=== PATIENT | male | born 1985 | race Caucasian/White ===

== ENCOUNTER 2018-02-02 19:36 | Emergency (ER) | payer OTHER ==
[2018-02-02] MEDS ORDERED: LORazepam 2 MG/ML INJ IV STA (21:16)
[2018-02-02] MEDS ORDERED: FOLIC ACID 1 MG TAB PO STA (21:16)
[2018-02-02] MEDS ORDERED: SODIUM CHLORIDE 0.9% 1,000 ML IV STA (21:16)
[2018-02-02] MEDS ORDERED: THIAMINE 100 MG/ML 2 ML VIAL IM STA (21:16)
[2018-02-02] MEDS ORDERED: ONDANSETRON 4 MG/2 ML VIAL IVP STA (21:19)
--- NOTE | 2018-02-02 21:26 | ED ---
Alcohol HPI - General Chief Complaint: Alcohol Stated Complaint: Withdrawal Time Seen by Provider: 02/02/18 21:11 Source: patient Mode of arrival: ambulatory Limitations: no limitations - History of Present Illness Initial Comments: This patient is a 32-year-old man who presents to be evaluated for what he believes his alcohol withdrawal. The patient states that for probably a year or more he has been drinking about a fifth of alcohol per day. He states over the past few days she has been trying to stop, drinking less each day. The patient states that his last drink was in the morning. He now is having continuous nausea and vomiting. He also states that he feels very anxious and shaky. Patient denies history of previous DVTs or withdrawal seizures. MD Complaint: alcohol withdrawal Time Since Last Drink: 10 -: hour(s) Recent Trauma: No Associated Symptoms: nausea, vomiting, tremors Treatments Prior to Arrival: none Chronic Alcohol Use: Yes - Related Data Previous Rx's Medication Instructions Recorded chlordiazePOXIDE HCl [Librium] 50 mg PO TID #6 capsule 02/02/18 Ondansetron Odt [Zofran ODT] 4 mg PO Q8HR PRN #10 tab 02/03/18 Allergies Allergy/AdvReac Type Severity Reaction Status Date / Time No Known Allergies Allergy Verified 02/02/18 20:38 Review of Systems ROS Statement: Those systems with pertinent positive or pertinent negative responses have been documented in the HPI. ROS Other: All systems not noted in ROS Statement are negative. Constitutional: Denies: fever, chills, weakness Eyes: Denies: vision change Respiratory: Denies: cough, dyspnea Cardiovascular: Denies: chest pain, syncope Gastrointestinal: Reports: nausea, vomiting. Denies: abdominal pain, diarrhea, hematemesis, melena, hematochezia Genitourinary: Denies: dysuria, hematuria Musculoskeletal: Denies: back pain Skin: Denies: rash Neurological: Denies: headache, weakness, numbness Psychiatric: Reports: anxiety. Denies: suicidal thoughts Past Medical History Past Medical History: Hypertension Additional Past Medical History / Comment(s): alcohol abuse History of Any Multi-Drug Resistant Organisms: None Reported Past Surgical History: Ear Surgery Past Psychological History: No Psychological Hx Reported Smoking Status: Never smoker Past Alcohol Use History: Daily, Heavy Past Drug Use History: None Reported General Exam Limitations: no limitations General appearance: alert, obese, other (The patient is having a mild tremor and is having intermittent retching throughout the exam. I did check a blood pressure at my exam and it is 170/110.) Head exam: Present: atraumatic, normocephalic Eye exam: Present: normal appearance. Absent: scleral icterus, conjunctival injection ENT exam: Present: mucous membranes dry Respiratory exam: Present: normal lung sounds bilaterally. Absent: respiratory distress, wheezes, rales, rhonchi, stridor Cardiovascular Exam: Present: normal rhythm, tachycardia (Rate 128 at my exam), normal heart sounds. Absent: systolic murmur, diastolic murmur, rubs, gallop GI/Abdominal exam: Present: soft. Absent: distended, tenderness, guarding, rebound, rigid, mass, hernia Extremities exam: Present: normal inspection, normal capillary refill. Absent: pedal edema, calf tenderness Back exam: Present: normal inspection Neurological exam: Present: alert, other (Mild tremor) Psychiatric exam: Present: anxious Skin exam: Present: warm, dry, intact, normal color. Absent: rash Course Vital Signs 02/02/18 02/02/18 02/03/18 20:26 23:11 00:03 Temperature 98.4 F Pulse Rate 139 H 111 H 111 H Respiratory 18 20 20 Rate Blood Pressure 163/93 166/82 180/92 O2 Sat by Pulse 94 L 99 97 Oximetry Medical Decision Making - Lab Data Result diagrams: 02/02/18 21:34 02/02/18 21:34 Lab Results 02/02/18 02/02/18 Range/Units 21:34 21:34 WBC 5.2 (3.8-10.6) k/uL RBC 5.56 (4.30-5.90) m/uL Hgb 17.7 H (13.0-17.5) gm/dL Hct 50.9 (39.0-53.0) % MCV 91.5 (80.0-100.0) fL MCH 31.8 (25.0-35.0) pg MCHC 34.8 (31.0-37.0) g/dL RDW 14.0 (11.5-15.5) % Plt Count 186 (150-450) k/uL Neutrophils % 74 % Lymphocytes % 15 % Monocytes % 8 % Eosinophils % 0 % Basophils % 1 % Neutrophils # 3.9 (1.3-7.7) k/uL Lymphocytes # 0.8 L (1.0-4.8) k/uL Monocytes # 0.4 (0-1.0) k/uL Eosinophils # 0.0 (0-0.7) k/uL Basophils # 0.0 (0-0.2) k/uL Sodium 142 (137-145) mmol/L Potassium 4.0 (3.5-5.1) mmol/L Chloride 100 (98-107) mmol/L Carbon Dioxide 17 L (22-30) mmol/L Anion Gap 25 mmol/L BUN 6 L (9-20) mg/dL Creatinine 0.70 (0.66-1.25) mg/dL Est GFR (CKD-EPI)AfAm >90 (>60 ml/min/1.73 sqM) Est GFR (CKD-EPI)NonAf >90 (>60 ml/min/1.73 sqM) Glucose 218 H (74-99) mg/dL Calcium 9.6 (8.4-10.2) mg/dL Magnesium 1.7 (1.6-2.3) mg/dL Total Bilirubin 1.9 H (0.2-1.3) mg/dL AST 67 H (17-59) U/L ALT 62 (21-72) U/L Alkaline Phosphatase 109 (38-126) U/L Total Protein 9.0 H (6.3-8.2) g/dL Albumin 5.3 H (3.5-5.0) g/dL Serum Alcohol 139 mg/dL Disposition Clinical Impression: Alcohol withdrawal syndrome Disposition: HOME SELF-CARE Condition: Good Instructions: Alcohol Withdrawal (ED) Prescriptions: chlordiazePOXIDE HCl [Librium] 50 mg PO TID #6 capsule Ondansetron Odt [Zofran ODT] 4 mg PO Q8HR PRN #10 tab PRN Reason: Nausea Is patient prescribed a controlled substance at d/c from ED?: Yes Referrals: None,Stated [Primary Care Provider] - 1-2 days
[2018-02-02 21:42] LABS: Basophils % (A) 1 %; Eosinophils % (A) 0 %; HCT 50.9 % (39.0-53.0); HGB 17.7 gm/dL (13.0-17.5); Lymphocytes # (A) 0.8 k/uL (1.0-4.8); Lymphocytes % (A) 15 %; MCH 31.8 pg (25.0-35.0); MCHC 34.8 g/dL (31.0-37.0); MCV 91.5 fL (80.0-100.0); Monocytes # (A) 0.4 k/uL (0-1.0); Monocytes % (A) 8 %; Neutrophils # (A) 3.9 k/uL (1.3-7.7); Neutrophils % (A) 74 %; Platelet Count 186 k/uL (150-450); RBC 5.56 m/uL (4.30-5.90); WBC 5.2 k/uL (3.8-10.6)
[2018-02-02 22:06] LABS: ALT 62 U/L (21-72); AST 67 U/L (17-59); Albumin 5.3 g/dL (3.5-5.0); Alkaline Phosphatase 109 U/L (38-126); Anion Gap 25 mmol/L; Blood Urea Nitrogen 6 mg/dL (9-20); Calcium 9.6 mg/dL (8.4-10.2); Carbon Dioxide 17 mmol/L (22-30); Chloride 100 mmol/L (98-107); Glucose 218 mg/dL (74-99); Magnesium 1.7 mg/dL (1.6-2.3); Sodium 142 mmol/L (137-145); Total Bilirubin 1.9 mg/dL (0.2-1.3)
[2018-02-02 22:08] LABS: Alcohol 139 mg/dL
[2018-02-03 00:04] VITALS: BP 180/92; PULSE 111; RESP 20
[2018-02-03 00:22] VITALS: TEMP 98.1
== END 2018-02-03 00:22 | disposition home or self-care (01) ==
LOC: EC 19:36
DX: F10.239 Alcohol dependence with withdrawal, unspecified (principal); R00.0 Tachycardia, unspecified; F41.9 Anxiety disorder, unspecified; E66.9 Obesity, unspecified; Z68.36 Body mass index [BMI] 36.0-36.9, adult
CPT/HCPCS: 36415; 80053; 83735; 85025; 80320; 99284; 96374; 96375; 96372; 96361 ×3; J2060; J3411; J2405

== ENCOUNTER 2019-06-10 06:56 | Emergency (ER) | payer OTHER ==
[2019-06-10] MEDS ORDERED: SODIUM CHLORIDE 0.9% 2,000 ML IV STA (07:13)
[2019-06-10] MEDS ORDERED: ONDANSETRON 4 MG/2 ML VIAL IVP STA (07:13)
[2019-06-10] MEDS ORDERED: FAMOTIDINE 20 MG/2 ML VIAL IV STA (07:13)
[2019-06-10] MEDS ORDERED: LORazepam 2 MG/ML INJ IV STA (07:30)
--- NOTE | 2019-06-10 07:33 | ED ---
General Adult HPI - General Chief complaint: Nausea/Vomiting/Diarrhea Stated complaint: Withdrawal Time Seen by Provider: 06/10/19 07:11 Source: patient, family, RN notes reviewed Mode of arrival: ambulatory Limitations: no limitations - History of Present Illness Initial comments: Patient is a pleasant 33-year-old male presenting to the emergency department with concerns of alcohol withdrawal. Patient stopped drinking around 12 hours ago. Patient feels a little bit shaky. Patient feels nauseated and has vomited a couple times. No weakness or confusion. No abdominal pain. No diarrhea. Patient has decided this time stopped drinking. - Related Data Home Medications Medication Instructions Recorded Confirmed Latanoprost/Pf [Latanoprost 0.005% 1 drop BOTH EYES HS 06/10/19 06/10/19 Eye Drop] Allergies Allergy/AdvReac Type Severity Reaction Status Date / Time No Known Allergies Allergy Verified 06/10/19 08:24 Review of Systems ROS Statement: Those systems with pertinent positive or pertinent negative responses have been documented in the HPI. ROS Other: All systems not noted in ROS Statement are negative. Constitutional: Denies: fever Eyes: Denies: eye pain ENT: Denies: ear pain Respiratory: Denies: cough Cardiovascular: Denies: chest pain Endocrine: Denies: fatigue Gastrointestinal: Reports: nausea. Denies: abdominal pain Genitourinary: Denies: dysuria Musculoskeletal: Denies: back pain Skin: Denies: rash Neurological: Denies: weakness Past Medical History Past Medical History: Hypertension Additional Past Medical History / Comment(s): alcohol abuse History of Any Multi-Drug Resistant Organisms: None Reported Past Surgical History: Ear Surgery Past Psychological History: No Psychological Hx Reported Smoking Status: Never smoker Past Alcohol Use History: Daily, Heavy Past Drug Use History: None Reported General Exam Limitations: no limitations General appearance: alert, in no apparent distress Head exam: Present: normocephalic Eye exam: Present: normal appearance, PERRL ENT exam: Present: normal oropharynx Neck exam: Present: normal inspection Respiratory exam: Present: normal lung sounds bilaterally Cardiovascular Exam: Present: normal rhythm, tachycardia GI/Abdominal exam: Present: soft. Absent: distended, tenderness Extremities exam: Present: normal inspection Neurological exam: Present: alert, oriented X3, CN II-XII intact. Absent: motor sensory deficit Psychiatric exam: Present: normal affect, normal mood Skin exam: Present: normal color Course Vital Signs 12/26/19 12/26/19 12/26/19 06:57 07:26 07:39 Temperature 97.3 F L Pulse Rate 156 H 130 H 105 H Respiratory 20 20 18 Rate Blood Pressure 180/99 167/115 O2 Sat by Pulse 97 96 Oximetry 06/10/19 08:05 Temperature Pulse Rate 93 Respiratory 18 Rate Blood Pressure 166/102 O2 Sat by Pulse 99 Oximetry EKG Findings - EKG Comments: EKG Findings:: Sinus tachycardia 135. [place] 140. QRS 86. QT 296. QTc 444. Right axis. Normal QRS. No acute ST change. Medical Decision Making - Medical Decision Making Patient reevaluated and significantly improved. Heart rate 99. Patient updated on results and need for follow-up. Patient given follow-up information for alcohol abuse. Patient instructed to cut Ativan pill in half. - Lab Data Result diagrams: 06/10/19 07:15 06/10/19 07:15 Lab Results 06/10/19 06/10/19 06/10/19 Range/Units 07:15 07:15 07:15 WBC 7.7 (3.8-10.6) k/uL RBC 5.73 (4.30-5.90) m/uL Hgb 17.5 (13.0-17.5) gm/dL Hct 49.7 (39.0-53.0) % MCV 86.7 (80.0-100.0) fL MCH 30.5 (25.0-35.0) pg MCHC 35.2 (31.0-37.0) g/dL RDW 14.0 (11.5-15.5) % Plt Count 221 (150-450) k/uL Neutrophils % 50 % Lymphocytes % 36 % Monocytes % 8 % Eosinophils % 3 % Basophils % 1 % Neutrophils # 3.9 (1.3-7.7) k/uL Lymphocytes # 2.8 (1.0-4.8) k/uL Monocytes # 0.6 (0-1.0) k/uL Eosinophils # 0.3 (0-0.7) k/uL Basophils # 0.1 (0-0.2) k/uL Sodium 141 (137-145) mmol/L Potassium 3.6 (3.5-5.1) mmol/L Chloride 98 (98-107) mmol/L Carbon Dioxide 20 L (22-30) mmol/L Anion Gap 23 mmol/L BUN 8 L (9-20) mg/dL Creatinine 0.82 (0.66-1.25) mg/dL Est GFR (CKD-EPI)AfAm >90 (>60 ml/min/1.73 sqM) Est GFR (CKD-EPI)NonAf >90 (>60 ml/min/1.73 sqM) Glucose 163 H (74-99) mg/dL Calcium 9.3 (8.4-10.2) mg/dL Total Bilirubin 1.4 H (0.2-1.3) mg/dL AST 107 H (17-59) U/L ALT 84 H (4-49) U/L Alkaline Phosphatase 155 H (38-126) U/L Total Protein 9.0 H (6.3-8.2) g/dL Albumin 5.1 H (3.5-5.0) g/dL Amylase 58 (30-110) U/L Lipase 154 (23-300) U/L Urine Color Yellow Urine Appearance Cloudy (Clear) Urine pH 5.5 (5.0-8.0) Ur Specific [place] 1.026 (1.001-1.035) Urine Protein 2+ H (Negative) Urine Glucose (UA) 2+ H (Negative) Urine Ketones 3+ H (Negative) Urine Blood Trace H (Negative) Urine Nitrite Negative (Negative) Urine Bilirubin Negative (Negative) Urine Urobilinogen 2.0 (<2.0) mg/dL Ur Leukocyte Esterase Negative (Negative) Urine RBC <1 (0-5) /hpf Urine WBC 2 (0-5) /hpf Ur Squamous Epith Cells 1 (0-4) /hpf Hyaline Casts 62 H (0-2) /lpf Urine Mucus Many H (None) /hpf Serum Alcohol 175 mg/dL Disposition Clinical Impression: Alcohol abuse, Alcohol withdrawal Disposition: HOME SELF-CARE Condition: Stable Instructions (If sedation given, give patient instructions): Abuse of Alcohol (ED), Alcohol Withdrawal (ED) Additional Instructions: Please follow-up with primary care physician in the next day or 2 for recheck. Return for confusion, hallucinations, seizures, worsening symptoms or any other concerns. Please also follow-up with alcohol abuse treatment, list provided Is patient prescribed a controlled substance at d/c from ED?: No Referrals: Matthew Trujillo MD [STAFF PHYSICIAN] - 1-2 days Donnie Scanlon III, MD [STAFF PHYSICIAN] - 1-2 days Time of Disposition: 08:41
[2019-06-10 07:40] VITALS: RESP 18
[2019-06-10 07:41] LABS: Appearance,Urine Cloudy (Clear); Bilirubin,Urine Negative (Negative); Blood,Urine Trace (Negative); Color,Urine Yellow; Glucose,Urine (UA) 2+ (Negative); Hyaline Casts,Urine 62 /lpf (0-2); Leukocyte Esterase,Urine Negative (Negative); Mucus,Urine Many /hpf; Nitrite,Urine Negative (Negative); PH, Urine 5.5 (5.0-8.0); Protein,Urine 2+ (Negative); RBC,Urine <1 /hpf (0-5); Specific Gravity,Urine 1.026 (1.001-1.035); Squamous Epithelial Cell,Urine 1 /hpf (0-4); WBC,Urine 2 /hpf (0-5)
[2019-06-10 07:43] LABS: ALT 84 U/L (4-49); AST 107 U/L (17-59); African American GFR (CKD) >90 (>60 ml/min/1.73 sqM); Albumin 5.1 g/dL (3.5-5.0); Alkaline Phosphatase 155 U/L (38-126); Amylase 58 U/L (30-110); Anion Gap 23 mmol/L; Blood Urea Nitrogen 8 mg/dL (9-20); Calcium 9.3 mg/dL (8.4-10.2); Carbon Dioxide 20 mmol/L (22-30); Chloride 98 mmol/L (98-107); Glucose 163 mg/dL (74-99); Non-African American GFR(CKD) >90 (>60 ml/min/1.73 sqM); Potassium 3.6 mmol/L (3.5-5.1); Sodium 141 mmol/L (137-145); Total Bilirubin 1.4 mg/dL (0.2-1.3)
[2019-06-10 07:44] LABS: Basophils # (A) 0.1 k/uL (0-0.2); Basophils % (A) 1 %; Eosinophils # (A) 0.3 k/uL (0-0.7); Eosinophils % (A) 3 %; HCT 49.7 % (39.0-53.0); HGB 17.5 gm/dL (13.0-17.5); Lymphocytes # (A) 2.8 k/uL (1.0-4.8); Lymphocytes % (A) 36 %; MCH 30.5 pg (25.0-35.0); MCHC 35.2 g/dL (31.0-37.0); MCV 86.7 fL (80.0-100.0); Mean Platelet Volume 9.1; Monocytes # (A) 0.6 k/uL (0-1.0); Monocytes % (A) 8 %; Neutrophils # (A) 3.9 k/uL (1.3-7.7); Neutrophils % (A) 50 %; Platelet Count 221 k/uL (150-450); RBC 5.73 m/uL (4.30-5.90); WBC 7.7 k/uL (3.8-10.6)
[2019-06-10 07:45] LABS: Alcohol 175 mg/dL; Ketones,Urine 3+ (Negative)
[2019-06-10 08:05] VITALS: PULSE 93
[2019-06-10] MEDS ORDERED: LORazepam 1 MG TAB PO STA (08:44)
[2019-06-10 09:05] VITALS: BP 158/93; TEMP 99
== END 2019-06-10 09:00 | disposition home or self-care (01) ==
LOC: EC 06:56
DX: F10.239 Alcohol dependence with withdrawal, unspecified (principal); I10 Essential (primary) hypertension
CPT/HCPCS: 36415; 93005; 80053; 82150; 83690; 85025; 81001; 99285; 96374; 96375 ×2; 96361 ×2; G0480; J2060; J2405; 80320

== ENCOUNTER 2019-08-24 10:48 | Emergency (ER) | payer OTHER ==
[2019-08-24 10:59] VITALS: TEMP 98
[2019-08-24] MEDS ORDERED: SODIUM CHLORIDE 0.9% 1,000 ML IV ONE (11:42)
[2019-08-24] MEDS ORDERED: LORazepam 2 MG/ML INJ IV STA (11:42)
[2019-08-24] MEDS ORDERED: SODIUM CHLORIDE 0.9% 500 ML 500 ML IV ONE (11:42)
[2019-08-24] MEDS ORDERED: ONDANSETRON 4 MG/2 ML VIAL IVP STA ×2 (11:42→13:16)
[2019-08-24] MEDS ORDERED: ACETAMINOPHEN TAB 500 MG TAB PO STA (11:53)
--- NOTE | 2019-08-24 11:53 | ED ---
General Adult HPI - General Chief complaint: Alcohol Stated complaint: ETOH withdrawal Time Seen by Provider: 08/24/19 11:00 Source: patient, RN notes reviewed, old records reviewed Mode of arrival: ambulatory Limitations: no limitations - History of Present Illness Initial comments: This is a 33-year-old male who presents emergency Department stating he thinks he is withdrawing from alcohol. Patient states his been at least an hour since he drank. Patient states he can't stop vomiting this morning and can't keep anything down. Patient states he also has a little bit of shakes and feels extremely nauseated. Patient also complains of a mild headache. Patient denies any chest pain difficulty breathing shortness of breath. Patient denies any diarrhea per patient denies any abdominal pain. Patient denies any recent injury or trauma. Patient denies any drug use. - Related Data Home Medications Medication Instructions Recorded Confirmed Latanoprost/Pf [Latanoprost 0.005% 1 drop BOTH EYES HS 06/10/19 06/10/19 Eye Drop] Previous Rx's Medication Instructions Recorded Ondansetron HCl [Zofran] 4 mg PO Q8H PRN #10 tab 08/24/19 Allergies Allergy/AdvReac Type Severity Reaction Status Date / Time No Known Allergies Allergy Verified 08/24/19 10:59 Review of Systems ROS Statement: Those systems with pertinent positive or pertinent negative responses have been documented in the HPI. ROS Other: All systems not noted in ROS Statement are negative. Past Medical History Past Medical History: Hypertension Additional Past Medical History / Comment(s): alcohol abuse History of Any Multi-Drug Resistant Organisms: None Reported Past Surgical History: Ear Surgery Past Psychological History: No Psychological Hx Reported Smoking Status: Never smoker Past Alcohol Use History: Abuse, Daily, Heavy Past Drug Use History: None Reported General Exam - General Exam Comments Initial Comments: GENERAL: Patient is well-developed and well-nourished. Patient is nontoxic and well- hydrated and is in mild distress. ENT: Neck is soft and supple. No significant lymphadenopathy is noted. Oropharynx is clear. Moist mucous membranes. Neck has full range of motion without eliciting any pain. EYES: The sclera were anicteric and conjunctiva were pink and moist. Extraocular movements were intact and pupils were equal round and reactive to light. Eyelids were unremarkable. PULMONARY: Unlabored respirations. Good breath sounds bilaterally. No audible rales rhonchi or wheezing was noted. CARDIOVASCULAR: There is a regular rate and rhythm without any murmurs gallops or rubs. ABDOMEN: Soft and nontender with normal bowel sounds. SKIN: Skin is clear with no lesions or rashes and otherwise unremarkable. NEUROLOGIC: Patient is alert and oriented x3. Cranial nerves II through XII are grossly intact. Motor and sensory are also intact. Normal speech, volume and content. Symmetrical smile. MUSCULOSKELETAL: Normal extremities with adequate strength and full range of motion. LYMPHATICS: No significant lymphadenopathy is noted PSYCHIATRIC: Normal psychiatric evaluation. Limitations: no limitations Course Vital Signs 08/24/19 08/24/19 10:56 13:39 Temperature 98.0 F Pulse Rate 113 H 82 Respiratory 18 16 Rate Blood Pressure 144/88 126/75 O2 Sat by Pulse 99 100 Oximetry Medical Decision Making - Medical Decision Making Patient received a liter of fluid and was feeling considerably better. Patient states she's can try to get into rehabilitation Center I will begin the room patient was drinking water and was able to eat. Patient wanted be discharged home to follow-up with rehab. - Lab Data Result diagrams: 08/24/19 11:42 08/24/19 11:42 Lab Results 08/24/19 08/24/19 08/24/19 Range/Units 11:42 11:42 11:42 WBC 8.0 (3.8-10.6) k/uL RBC 5.65 (4.30-5.90) m/uL Hgb 17.4 (13.0-17.5) gm/dL Hct 50.1 (39.0-53.0) % MCV 88.8 (80.0-100.0) fL MCH 30.8 (25.0-35.0) pg MCHC 34.7 (31.0-37.0) g/dL RDW 14.0 (11.5-15.5) % Plt Count 260 (150-450) k/uL Neutrophils % 65 % Lymphocytes % 25 % Monocytes % 5 % Eosinophils % 1 % Basophils % 1 % Neutrophils # 5.2 (1.3-7.7) k/uL Lymphocytes # 2.0 (1.0-4.8) k/uL Monocytes # 0.4 (0-1.0) k/uL Eosinophils # 0.1 (0-0.7) k/uL Basophils # 0.1 (0-0.2) k/uL Sodium 137 (137-145) mmol/L Potassium 4.2 (3.5-5.1) mmol/L Chloride 99 (98-107) mmol/L Carbon Dioxide 13 L (22-30) mmol/L Anion Gap 25 mmol/L BUN 7 L (9-20) mg/dL Creatinine 0.64 L (0.66-1.25) mg/dL Est GFR (CKD-EPI)AfAm >90 (>60 ml/min/1.73 sqM) Est GFR (CKD-EPI)NonAf >90 (>60 ml/min/1.73 sqM) Glucose 221 H (74-99) mg/dL Calcium 9.2 (8.4-10.2) mg/dL Magnesium 1.7 (1.6-2.3) mg/dL Total Bilirubin 0.9 (0.2-1.3) mg/dL AST 53 (17-59) U/L ALT 46 (4-49) U/L Alkaline Phosphatase 123 (38-126) U/L Total Protein 8.2 (6.3-8.2) g/dL Albumin 4.9 (3.5-5.0) g/dL Serum Alcohol 146 mg/dL Disposition Clinical Impression: Alcoholic intoxication, Alcohol withdrawal, Vomiting Disposition: ADMITTED IP TO THIS [facility] Instructions (If sedation given, give patient instructions): Alcohol Withdrawal (ED), Alcohol Intoxication (ED) Additional Instructions: Patient is to follow-up with a call rehabilitation Center. Patient should take Zofran every 4 hours when necessary for nausea Prescriptions: Ondansetron HCl [Zofran] 4 mg PO Q8H PRN #10 tab PRN Reason: Nausea And Vomiting Referrals: None,Stated [Primary Care Provider] - 1-2 days Time of Disposition: 13:58
[2019-08-24 12:00] LABS: Basophils # (A) 0.1 k/uL (0-0.2); Basophils % (A) 1 %; Eosinophils # (A) 0.1 k/uL (0-0.7); Eosinophils % (A) 1 %; HCT 50.1 % (39.0-53.0); HGB 17.4 gm/dL (13.0-17.5); Lymphocytes % (A) 25 %; MCH 30.8 pg (25.0-35.0); MCHC 34.7 g/dL (31.0-37.0); MCV 88.8 fL (80.0-100.0); Mean Platelet Volume 8.5; Monocytes # (A) 0.4 k/uL (0-1.0); Monocytes % (A) 5 %; Neutrophils # (A) 5.2 k/uL (1.3-7.7); Neutrophils % (A) 65 %; Platelet Count 260 k/uL (150-450); RBC 5.65 m/uL (4.30-5.90)
[2019-08-24 12:09] LABS: ALT 46 U/L (4-49); AST 53 U/L (17-59); African American GFR (CKD) >90 (>60 ml/min/1.73 sqM); Albumin 4.9 g/dL (3.5-5.0); Alkaline Phosphatase 123 U/L (38-126); Anion Gap 25 mmol/L; Blood Urea Nitrogen 7 mg/dL (9-20); Calcium 9.2 mg/dL (8.4-10.2); Carbon Dioxide 13 mmol/L (22-30); Chloride 99 mmol/L (98-107); Glucose 221 mg/dL (74-99); Magnesium 1.7 mg/dL (1.6-2.3); Non-African American GFR(CKD) >90 (>60 ml/min/1.73 sqM); Potassium 4.2 mmol/L (3.5-5.1); Sodium 137 mmol/L (137-145); Total Bilirubin 0.9 mg/dL (0.2-1.3); Total Protein 8.2 g/dL (6.3-8.2)
[2019-08-24] MEDS ORDERED: THIAMINE 100 MG/ML 2 ML VIAL IM STA (13:02)
[2019-08-24 13:40] VITALS: BP 126/75; PULSE 82; RESP 16
== END 2019-08-24 14:09 | disposition other institution (70) ==
LOC: EC 10:48
DX: F10.239 Alcohol dependence with withdrawal, unspecified (principal); F10.229 Alcohol dependence with intoxication, unspecified; I10 Essential (primary) hypertension
CPT/HCPCS: 36415; 80053; 83735; 85025; 99285; 96374; 96376; 96361 ×2; 96372; G0480; J2060; J3411; J2405; 80320

== ENCOUNTER 2019-11-26 14:46 | Emergency (ER) | payer OTHER ==
[2019-11-26 14:54] VITALS: RESP 18
[2019-11-26] MEDS ORDERED: SODIUM CHLORIDE 0.9% 1,000 ML IV STA (15:13)
[2019-11-26] MEDS ORDERED: LORazepam 2 MG/ML INJ IV STA ×2 (15:14→17:10)
[2019-11-26] MEDS ORDERED: ONDANSETRON 4 MG/2 ML VIAL IVP STA (15:16)
--- NOTE | 2019-11-26 15:18 | ED ---
General Adult HPI - General Chief complaint: Alcohol Stated complaint: alcohol withdrawl Time Seen by Provider: 11/26/19 14:58 Source: patient, RN notes reviewed Mode of arrival: ambulatory Limitations: no limitations - History of Present Illness Initial comments: 34-year-old male with a past medical history of hypertension, alcohol abuse disorder presents to the emergency department for a chief complaint alcoholic withdrawal disorder. Patient has been seen several times for this complaint. Patient states he usually drinks 1.5 fifths of vodka per day. States he has been trying to wean himself off over the past few days. States he drank around 5 AM this morning because he was shaking. Patient states he has had nausea and hasn't been able to keep down fluids. States that he has felt shaky. He feels weak.Patient has no other complaints at this time including shortness of breath, chest pain, abdominal pain, nausea or vomiting, headache, or visual changes. - Related Data Home Medications Medication Instructions Recorded Confirmed Latanoprost/Pf [Latanoprost 0.005% 1 drop BOTH EYES HS 06/10/19 06/10/19 Eye Drop] Previous Rx's Medication Instructions Recorded Ondansetron HCl [Zofran] 4 mg PO Q8H PRN #10 tab 08/24/19 chlordiazePOXIDE HCl [Librium] See Taper PO TID 3 Days #11 capsule 11/26/19 Allergies Allergy/AdvReac Type Severity Reaction Status Date / Time No Known Allergies Allergy Verified 11/26/19 14:54 Review of Systems ROS Statement: Those systems with pertinent positive or pertinent negative responses have been documented in the HPI. ROS Other: All systems not noted in ROS Statement are negative. Past Medical History Past Medical History: Hypertension Additional Past Medical History / Comment(s): alcohol abuse History of Any Multi-Drug Resistant Organisms: None Reported Past Surgical History: Ear Surgery Past Psychological History: No Psychological Hx Reported Smoking Status: Never smoker Past Alcohol Use History: Abuse, Daily, Heavy Past Drug Use History: None Reported General Exam Limitations: no limitations General appearance: alert (Tremulous), in no apparent distress Head exam: Present: atraumatic, normocephalic, normal inspection Eye exam: Present: normal appearance, PERRL, EOMI. Absent: scleral icterus, conjunctival injection, periorbital swelling ENT exam: Present: normal exam, mucous membranes moist Neck exam: Present: normal inspection, full ROM. Absent: tenderness, meningismus, lymphadenopathy Respiratory exam: Present: normal lung sounds bilaterally. Absent: respiratory distress, wheezes, rales, rhonchi, stridor Cardiovascular Exam: Present: regular rate, normal rhythm, normal heart sounds. Absent: systolic murmur, diastolic murmur, rubs, gallop, clicks GI/Abdominal exam: Present: soft, normal bowel sounds. Absent: distended, tenderness, guarding, rebound, rigid Neurological exam: Present: alert Psychiatric exam: Absent: homicidal ideation, suicidal ideation Course Vital Signs 11/26/19 11/26/19 11/26/19 14:50 15:40 17:15 Temperature 98 F Pulse Rate 145 H 116 H 109 H Respiratory 18 18 18 Rate Blood Pressure 158/99 153/108 141/93 O2 Sat by Pulse 96 98 99 Oximetry 11/26/19 19:28 Temperature 97.9 F Pulse Rate 105 H Respiratory 18 Rate Blood Pressure 137/78 O2 Sat by Pulse 98 Oximetry EKG Findings - EKG Comments: EKG Findings:: Sinus tachycardia, ventricular rate 124, MT 144, QTc 462 Medical Decision Making - Medical Decision Making Vitals are stable. Heart rate did improve throughout his stay. Patient was vomiting but is now feeling much better. CBC does show hemoconcentration. CMP unremarkable. Transaminitis and hyperbilirubinemia is chronic given chronic alc oholism. Patient does have alcoholic ketoacidosis and was given 2 L of fluids. Feeling much better. Discussed this case with Dr. Kim. He recommended Patient be given a perception for Librium. He will follow-up with his primary care provider and he was given referrals for alcohol abuse disorder. He will return here for any worsening symptoms. His girlfriend will give him a ride home. - Lab Data Result diagrams: 11/26/19 15:25 11/26/19 15:25 Lab Results 11/26/19 11/26/19 11/26/19 Range/Units 15:25 15:25 15:25 WBC 7.6 (3.8-10.6) k/uL RBC 5.90 (4.30-5.90) m/uL Hgb 19.2 H* (13.0-17.5) gm/dL Hct 54.8 H (39.0-53.0) % MCV 92.9 (80.0-100.0) fL MCH 32.5 (25.0-35.0) pg MCHC 35.0 (31.0-37.0) g/dL RDW 13.8 (11.5-15.5) % Plt Count 216 (150-450) k/uL Neutrophils % 67 % Lymphocytes % 23 % Monocytes % 6 % Eosinophils % 1 % Basophils % 1 % Neutrophils # 5.1 (1.3-7.7) k/uL Lymphocytes # 1.8 (1.0-4.8) k/uL Monocytes # 0.5 (0-1.0) k/uL Eosinophils # 0.0 (0-0.7) k/uL Basophils # 0.1 (0-0.2) k/uL Sodium 137 (137-145) mmol/L Potassium 3.9 (3.5-5.1) mmol/L Chloride 98 (98-107) mmol/L Carbon Dioxide 14 L (22-30) mmol/L Anion Gap 25 mmol/L BUN 9 (9-20) mg/dL Creatinine 0.62 L (0.66-1.25) mg/dL Est GFR (CKD-EPI)AfAm >90 (>60 ml/min/1.73 sqM) Est GFR (CKD-EPI)NonAf >90 (>60 ml/min/1.73 sqM) Glucose 251 H (74-99) mg/dL Calcium 9.3 (8.4-10.2) mg/dL Magnesium 2.3 (1.6-2.3) mg/dL Total Bilirubin 1.8 H (0.2-1.3) mg/dL AST 110 H (17-59) U/L ALT 88 H (4-49) U/L Alkaline Phosphatase 137 H (38-126) U/L Total Protein 8.8 H (6.3-8.2) g/dL Albumin 5.3 H (3.5-5.0) g/dL Amylase 71 (30-110) U/L Lipase 219 (23-300) U/L Urine Color Urine Appearance (Clear) Urine pH (5.0-8.0) Ur Specific Standard (1.001-1.035) Urine Protein (Negative) Urine Glucose (UA) (Negative) Urine Ketones (Negative) Urine Blood (Negative) Urine Nitrite (Negative) Urine Bilirubin (Negative) Urine Urobilinogen (<2.0) mg/dL Ur Leukocyte Esterase (Negative) Urine RBC (0-5) /hpf Urine WBC (0-5) /hpf Ur Squamous Epith Cells (0-4) /hpf Hyaline Casts (0-2) /lpf Urine Mucus (None) /hpf Serum Alcohol 199 mg/dL 11/26/19 Range/Units 17:05 WBC (3.8-10.6) k/uL RBC (4.30-5.90) m/uL Hgb (13.0-17.5) gm/dL Hct (39.0-53.0) % MCV (80.0-100.0) fL MCH (25.0-35.0) pg MCHC (31.0-37.0) g/dL RDW (11.5-15.5) % Plt Count (150-450) k/uL Neutrophils % % Lymphocytes % % Monocytes % % Eosinophils % % Basophils % % Neutrophils # (1.3-7.7) k/uL Lymphocytes # (1.0-4.8) k/uL Monocytes # (0-1.0) k/uL Eosinophils # (0-0.7) k/uL Basophils # (0-0.2) k/uL Sodium (137-145) mmol/L Potassium (3.5-5.1) mmol/L Chloride (98-107) mmol/L Carbon Dioxide (22-30) mmol/L Anion Gap mmol/L BUN (9-20) mg/dL Creatinine (0.66-1.25) mg/dL Est GFR (CKD-EPI)AfAm (>60 ml/min/1.73 sqM) Est GFR (CKD-EPI)NonAf (>60 ml/min/1.73 sqM) Glucose (74-99) mg/dL Calcium (8.4-10.2) mg/dL Magnesium (1.6-2.3) mg/dL Total Bilirubin (0.2-1.3) mg/dL AST (17-59) U/L ALT (4-49) U/L Alkaline Phosphatase (38-126) U/L Total Protein (6.3-8.2) g/dL Albumin (3.5-5.0) g/dL Amylase (30-110) U/L Lipase (23-300) U/L Urine Color Yellow Urine Appearance Clear (Clear) Urine pH 5.5 (5.0-8.0) Ur Specific Standard 1.028 (1.001-1.035) Urine Protein 2+ H (Negative) Urine Glucose (UA) 4+ H (Negative) Urine Ketones 4+ H (Negative) Urine Blood Trace H (Negative) Urine Nitrite Negative (Negative) Urine Bilirubin Negative (Negative) Urine Urobilinogen <2.0 (<2.0) mg/dL Ur Leukocyte Esterase Negative (Negative) Urine RBC <1 (0-5) /hpf Urine WBC 1 (0-5) /hpf Ur Squamous Epith Cells <1 (0-4) /hpf Hyaline Casts 30 H (0-2) /lpf Urine Mucus Rare H (None) /hpf Serum Alcohol mg/dL Disposition Clinical Impression: Dehydration, Alcohol withdrawal Disposition: HOME SELF-CARE Condition: Good Instructions (If sedation given, give patient instructions): Alcohol Withdrawal (ED) Additional Instructions: Please take medications as directed. Please follow-up with primary care in 1-2 days. If you have any worsening symptoms return to the emergency department. Prescriptions: chlordiazePOXIDE HCl [Librium] See Taper PO TID 3 Days #11 capsule Is patient prescribed a controlled substance at d/c from ED?: No Referrals: Edward Carroll MD [REFERRING] - 1-2 days Time of Disposition: 19:12
[2019-11-26 15:49] LABS: Basophils # (A) 0.1 k/uL (0-0.2); Basophils % (A) 1 %; Eosinophils % (A) 1 %; HCT 54.8 % (39.0-53.0); Lymphocytes # (A) 1.8 k/uL (1.0-4.8); Lymphocytes % (A) 23 %; MCH 32.5 pg (25.0-35.0); MCV 92.9 fL (80.0-100.0); Monocytes # (A) 0.5 k/uL (0-1.0); Monocytes % (A) 6 %; Neutrophils # (A) 5.1 k/uL (1.3-7.7); Neutrophils % (A) 67 %; Platelet Count 216 k/uL (150-450); RDW 13.8 % (11.5-15.5); WBC 7.6 k/uL (3.8-10.6)
[2019-11-26 15:51] LABS: HGB 19.2 gm/dL (13.0-17.5)
[2019-11-26 15:58] LABS: ALT 88 U/L (4-49); AST 110 U/L (17-59); African American GFR (CKD) >90 (>60 ml/min/1.73 sqM); Albumin 5.3 g/dL (3.5-5.0); Alkaline Phosphatase 137 U/L (38-126); Anion Gap 25 mmol/L; Blood Urea Nitrogen 9 mg/dL (9-20); Calcium 9.3 mg/dL (8.4-10.2); Carbon Dioxide 14 mmol/L (22-30); Chloride 98 mmol/L (98-107); Glucose 251 mg/dL (74-99); Magnesium 2.3 mg/dL (1.6-2.3); Non-African American GFR(CKD) >90 (>60 ml/min/1.73 sqM); Potassium 3.9 mmol/L (3.5-5.1); Sodium 137 mmol/L (137-145); Total Bilirubin 1.8 mg/dL (0.2-1.3); Total Protein 8.8 g/dL (6.3-8.2)
[2019-11-26 16:09] LABS: Alcohol 199 mg/dL
[2019-11-26 17:20] LABS: Appearance,Urine Clear (Clear); Bilirubin,Urine Negative (Negative); Blood,Urine Trace (Negative); Color,Urine Yellow; Glucose,Urine (UA) 4+ (Negative); Hyaline Casts,Urine 30 /lpf (0-2); Leukocyte Esterase,Urine Negative (Negative); Mucus,Urine Rare /hpf; Nitrite,Urine Negative (Negative); PH, Urine 5.5 (5.0-8.0); Protein,Urine 2+ (Negative); RBC,Urine <1 /hpf (0-5); Specific Gravity,Urine 1.028 (1.001-1.035); Squamous Epithelial Cell,Urine <1 /hpf (0-4); Urobilinogen,Urine <2.0 mg/dL (<2.0); WBC,Urine 1 /hpf (0-5)
[2019-11-26 17:30] LABS: Ketones,Urine 4+ (Negative)
[2019-11-26] MEDS ORDERED: METOCLOPRAMIDE 5 MG/ML 2 ML VIAL IVP STA (17:33)
[2019-11-26 17:51] LABS: Amylase 71 U/L (30-110)
[2019-11-26 19:29] VITALS: BP 137/78; PULSE 105; TEMP 97.9
== END 2019-11-26 19:45 | disposition home or self-care (01) ==
LOC: EC 14:46
DX: F10.239 Alcohol dependence with withdrawal, unspecified (principal); E86.0 Dehydration; E87.2 Acidosis
CPT/HCPCS: 82075; 36415; 80053; 82150; 83690; 83735; 85025; 81001; 99285; 96374; 96375 ×2; 96376; 96361 ×4; G0480; J2060; J2765; J2405; 80320

== ENCOUNTER 2020-03-03 16:15 | Inpatient (IN) | payer OTHER ==
[2020-03-03] MEDS ORDERED: LORazepam 2 MG/ML INJ IV STA (17:03)
[2020-03-03] MEDS ORDERED: SODIUM CHLORIDE 0.9% 1,000 ML IV STA ×2 (17:03→18:51)
[2020-03-03] MEDS ORDERED: ONDANSETRON 4 MG/2 ML VIAL IVP STA (18:20)
[2020-03-03 18:37] LABS: Basophils # (A) 0.1 k/uL (0-0.2); Basophils % (A) 1 %; Eosinophils % (A) 0 %; HCT 54.1 % (39.0-53.0); HGB 18.6 gm/dL (13.0-17.5); Lymphocytes # (A) 1.1 k/uL (1.0-4.8); Lymphocytes % (A) 16 %; MCH 31.4 pg (25.0-35.0); MCHC 34.5 g/dL (31.0-37.0); MCV 91.3 fL (80.0-100.0); Mean Platelet Volume 8.2; Monocytes # (A) 0.3 k/uL (0-1.0); Monocytes % (A) 5 %; Neutrophils # (A) 5.1 k/uL (1.3-7.7); Neutrophils % (A) 77 %; Platelet Count 173 k/uL (150-450); RBC 5.93 m/uL (4.30-5.90); RDW 12.9 % (11.5-15.5); WBC 6.7 k/uL (3.8-10.6)
[2020-03-03 18:45] LABS: Appearance,Urine Cloudy (Clear); Bacteria,Urine Rare /hpf; Bilirubin,Urine Negative (Negative); Blood,Urine Trace (Negative); Color,Urine Yellow; Glucose,Urine (UA) 4+ (Negative); Hyaline Casts,Urine 12 /lpf (0-2); Leukocyte Esterase,Urine Trace (Negative); Mucus,Urine Many /hpf; Nitrite,Urine Negative (Negative); PH, Urine 5.5 (5.0-8.0); Protein,Urine 2+ (Negative); RBC,Urine 4 /hpf (0-5); Squamous Epithelial Cell,Urine 7 /hpf (0-4); Urobilinogen,Urine <2.0 mg/dL (<2.0); WBC,Urine 19 /hpf (0-5)
[2020-03-03 18:46] LABS: Ketones,Urine 3+ (Negative)
[2020-03-03 18:48] LABS: ALT 62 U/L (4-49); AST 90 U/L (17-59); African American GFR (CKD) >90 (>60 ml/min/1.73 sqM); Albumin 5.2 g/dL (3.5-5.0); Alkaline Phosphatase 129 U/L (38-126); Anion Gap 24 mmol/L; Blood Urea Nitrogen 7 mg/dL (9-20); Carbon Dioxide 17 mmol/L (22-30); Chloride 97 mmol/L (98-107); Glucose 234 mg/dL (74-99); Non-African American GFR(CKD) >90 (>60 ml/min/1.73 sqM); Potassium 3.9 mmol/L (3.5-5.1); Sodium 138 mmol/L (137-145); Total Bilirubin 1.9 mg/dL (0.2-1.3); Total Protein 8.4 g/dL (6.3-8.2)
[2020-03-03 18:51] LABS: Alcohol 292 mg/dL
[2020-03-03 18:59] LABS: Amphetamine Screen,Urine Not Detected (NotDetected); Barbiturate Screen,Urine Not Detected (NotDetected); Benzodiazepines Screen,Urine Not Detected (NotDetected); Cocaine Screen,Urine Not Detected (NotDetected); Methadone Screen, Urine Not Detected (NotDetected); Opiate Screen,Urine Not Detected (NotDetected); Oxycodone Screen, Urine Not Detected (NotDetected); Phencyclidine Screen,Urine Not Detected (NotDetected); Tricyclic Antidepressant,Urine Not Detected (NotDetected); Urn Cannabinoid Scrn Not Detected (NotDetected)
[2020-03-03] MEDS ORDERED: NALOXONE 0.4 MG/ML 1 ML VIAL IV PRN (19:46)
[2020-03-03] MEDS ORDERED: ONDANSETRON 4 MG/2 ML VIAL IVP PRN (19:46)
--- NOTE | 2020-03-03 19:46 | ED ---
General Adult HPI <Emmanuel Kim - Last Filed: 03/03/20 20:00> - General Source: patient, RN notes reviewed Mode of arrival: ambulatory Limitations: no limitations <Yann Leary - Last Filed: 03/03/20 23:11> - General Chief complaint: Alcohol Stated complaint: wants to stop drinking Time Seen by Provider: 03/03/20 16:36 - History of Present Illness Initial comments: 34-year-old male with a past medical history of hypertension presents to the emergency room for alcohol withdrawal. Patient reports he is trying to quit drinking. He states that he last drank a fifth of vodka earlier today. Patient reports he feels shaky and unwell. Patient is vomiting. Patient has no other complaints at this time including shortness of breath, chest pain, abdominal pain, headache, or visual changes. (Yann Leary) - Related Data Home Medications Medication Instructions Recorded Confirmed Latanoprost/Pf [Latanoprost 0.005% 1 drop BOTH EYES HS 06/10/19 03/03/20 Eye Drop] Allergies Allergy/AdvReac Type Severity Reaction Status Date / Time No Known Allergies Allergy Verified 03/03/20 19:57 Review of Systems ROS Other: All systems not noted in ROS Statement are negative. <JulioEmmanuel - Last Filed: 03/03/20 20:00> ROS Other: All systems not noted in ROS Statement are negative. <Yann Leary - Last Filed: 03/03/20 23:11> ROS Statement: Those systems with pertinent positive or pertinent negative responses have been documented in the HPI. Past Medical History Past Medical History: Hypertension Additional Past Medical History / Comment(s): alcohol abuse History of Any Multi-Drug Resistant Organisms: None Reported Past Surgical History: Ear Surgery Past Psychological History: No Psychological Hx Reported Smoking Status: Never smoker Past Alcohol Use History: Abuse, Daily, Heavy Past Drug Use History: None Reported <Yann Leary - Last Filed: 03/03/20 23:11> General Exam Limitations: no limitations General appearance: alert, other (Tremulous) Head exam: Present: atraumatic, normocephalic, normal inspection Eye exam: Present: normal appearance, PERRL, EOMI. Absent: scleral icterus, conjunctival injection, periorbital swelling ENT exam: Present: normal exam, mucous membranes moist Neck exam: Present: normal inspection, full ROM. Absent: tenderness, meningismus, lymphadenopathy Respiratory exam: Present: normal lung sounds bilaterally. Absent: respiratory distress, wheezes, rales, rhonchi, stridor Cardiovascular Exam: Present: regular rate, normal rhythm, normal heart sounds. Absent: systolic murmur, diastolic murmur, rubs, gallop, clicks GI/Abdominal exam: Present: soft, normal bowel sounds. Absent: distended, tenderness, guarding, rebound, rigid Neurological exam: Present: alert <Yann Leary - Last Filed: 03/03/20 23:11> Course <Emmanuel Kim - Last Filed: 03/03/20 20:00> Vital Signs 03/03/20 03/03/20 03/03/20 16:24 19:30 21:53 Temperature 98.1 F Pulse Rate 152 H 115 H Respiratory 16 18 18 Rate Blood Pressure 163/118 166/97 O2 Sat by Pulse 95 99 Oximetry - Reevaluation(s) Reevaluation #1: 03/03/20 20:01 The patient will be admitted for local withdrawal intoxication. He's discussed with Dr. Horn (Emmanuel Kim) EKG Findings - EKG Comments: EKG Findings:: Sinus tachycardia, ventricular rate 116, CO interval 150, QTC 453 <Yann Leary - Last Filed: 03/03/20 23:11> Medical Decision Making - Lab Data Result diagrams: 03/03/20 18:23 03/03/20 18:23 <Emmanuel Kim - Last Filed: 03/03/20 20:00> - Lab Data Result diagrams: 03/03/20 18:23 03/03/20 18:23 <Yann Leary - Last Filed: 03/03/20 23:11> - Medical Decision Making Patient presents with an initial heart rate of 152. This did improve to 115 after 2 L of fluids. CBC shows evidence of hemoconcentration. CMP consistent with alcoholic ketoacidosis. Anion gap is 26 patient also is hyperglycemic with 4+ glucose in his urine. He does have 3+ ketones however this is likely more related to dehydration. Patient does not have a history of diabetes. At this time patient's alcohol is 292. He was given 2 Ativan but continues to have tremors. Patient reports he is not going to continue drinking alcohol at home. At this time patient will be admitted for acute alcohol intoxication as well as impending DTs. (Yann Leary) - Lab Data Lab Results 03/03/20 03/03/20 03/03/20 Range/Units 18:23 18:23 18:23 WBC 6.7 (3.8-10.6) k/uL RBC 5.93 H (4.30-5.90) m/uL Hgb 18.6 H (13.0-17.5) gm/dL Hct 54.1 H (39.0-53.0) % MCV 91.3 (80.0-100.0) fL MCH 31.4 (25.0-35.0) pg MCHC 34.5 (31.0-37.0) g/dL RDW 12.9 (11.5-15.5) % Plt Count 173 (150-450) k/uL Neutrophils % 77 % Lymphocytes % 16 % Monocytes % 5 % Eosinophils % 0 % Basophils % 1 % Neutrophils # 5.1 (1.3-7.7) k/uL Lymphocytes # 1.1 (1.0-4.8) k/uL Monocytes # 0.3 (0-1.0) k/uL Eosinophils # 0.0 (0-0.7) k/uL Basophils # 0.1 (0-0.2) k/uL Sodium 138 (137-145) mmol/L Potassium 3.9 (3.5-5.1) mmol/L Chloride 97 L (98-107) mmol/L Carbon Dioxide 17 L (22-30) mmol/L Anion Gap 24 mmol/L BUN 7 L (9-20) mg/dL Creatinine 0.71 (0.66-1.25) mg/dL Est GFR (CKD-EPI)AfAm >90 (>60 ml/min/1.73 sqM) Est GFR (CKD-EPI)NonAf >90 (>60 ml/min/1.73 sqM) Glucose 234 H (74-99) mg/dL Calcium 9.0 (8.4-10.2) mg/dL Magnesium 2.0 (1.6-2.3) mg/dL Total Bilirubin 1.9 H (0.2-1.3) mg/dL AST 90 H (17-59) U/L ALT 62 H (4-49) U/L Alkaline Phosphatase 129 H (38-126) U/L Total Protein 8.4 H (6.3-8.2) g/dL Albumin 5.2 H (3.5-5.0) g/dL Lipase (23-300) U/L Urine Color Yellow Urine Appearance Cloudy (Clear) Urine pH 5.5 (5.0-8.0) Ur Specific [place] 1.030 (1.001-1.035) Urine Protein 2+ H (Negative) Urine Glucose (UA) 4+ H (Negative) Urine Ketones 3+ H (Negative) Urine Blood Trace H (Negative) Urine Nitrite Negative (Negative) Urine Bilirubin Negative (Negative) Urine Urobilinogen <2.0 (<2.0) mg/dL Ur Leukocyte Esterase Trace H (Negative) Urine RBC 4 (0-5) /hpf Urine WBC 19 H (0-5) /hpf Ur Squamous Epith Cells 7 H (0-4) /hpf Urine Bacteria Rare H (None) /hpf Hyaline Casts 12 H (0-2) /lpf Urine Mucus Many H (None) /hpf Urine Opiates Screen Not Detected (NotDetected) Ur Oxycodone Screen Not Detected (NotDetected) Urine Methadone Screen Not Detected (NotDetected) Ur Propoxyphene Screen Not Detected (NotDetected) Ur Barbiturates Screen Not Detected (NotDetected) U Tricyclic Antidepress Not Detected (NotDetected) Ur Phencyclidine Scrn Not Detected (NotDetected) Ur Amphetamines Screen Not Detected (NotDetected) U Methamphetamines Scrn Not Detected (NotDetected) U Benzodiazepines Scrn Not Detected (NotDetected) Urine Cocaine Screen Not Detected (NotDetected) U Marijuana (THC) Screen Not Detected (NotDetected) Serum Alcohol 292 H* mg/dL Acetone, Qual (Negative) 03/03/20 Range/Units 18:23 WBC (3.8-10.6) k/uL RBC (4.30-5.90) m/uL Hgb (13.0-17.5) gm/dL Hct (39.0-53.0) % MCV (80.0-100.0) fL MCH (25.0-35.0) pg MCHC (31.0-37.0) g/dL RDW (11.5-15.5) % Plt Count (150-450) k/uL Neutrophils % % Lymphocytes % % Monocytes % % Eosinophils % % Basophils % % Neutrophils # (1.3-7.7) k/uL Lymphocytes # (1.0-4.8) k/uL Monocytes # (0-1.0) k/uL Eosinophils # (0-0.7) k/uL Basophils # (0-0.2) k/uL Sodium (137-145) mmol/L Potassium (3.5-5.1) mmol/L Chloride (98-107) mmol/L Carbon Dioxide (22-30) mmol/L Anion Gap mmol/L BUN (9-20) mg/dL Creatinine (0.66-1.25) mg/dL Est GFR (CKD-EPI)AfAm (>60 ml/min/1.73 sqM) Est GFR (CKD-EPI)NonAf (>60 ml/min/1.73 sqM) Glucose (74-99) mg/dL Calcium (8.4-10.2) mg/dL Magnesium (1.6-2.3) mg/dL Total Bilirubin (0.2-1.3) mg/dL AST (17-59) U/L ALT (4-49) U/L Alkaline Phosphatase (38-126) U/L Total Protein (6.3-8.2) g/dL Albumin (3.5-5.0) g/dL Lipase 143 (23-300) U/L Urine Color Urine Appearance (Clear) Urine pH (5.0-8.0) Ur Specific [place] (1.001-1.035) Urine Protein (Negative) Urine Glucose (UA) (Negative) Urine Ketones (Negative) Urine Blood (Negative) Urine Nitrite (Negative) Urine Bilirubin (Negative) Urine Urobilinogen (<2.0) mg/dL Ur Leukocyte Esterase (Negative) Urine RBC (0-5) /hpf Urine WBC (0-5) /hpf Ur Squamous Epith Cells (0-4) /hpf Urine Bacteria (None) /hpf Hyaline Casts (0-2) /lpf Urine Mucus (None) /hpf Urine Opiates Screen (NotDetected) Ur Oxycodone Screen (NotDetected) Urine Methadone Screen (NotDetected) Ur Propoxyphene Screen (NotDetected) Ur Barbiturates Screen (NotDetected) U Tricyclic Antidepress (NotDetected) Ur Phencyclidine Scrn (NotDetected) Ur Amphetamines Screen (NotDetected) U Methamphetamines Scrn (NotDetected) U Benzodiazepines Scrn (NotDetected) Urine Cocaine Screen (NotDetected) U Marijuana (THC) Screen (NotDetected) Serum Alcohol mg/dL Acetone, Qual Negative (Negative) Disposition <Emmanuel Kim - Last Filed: 03/03/20 20:00> Is patient prescribed a controlled substance at d/c from ED?: No Time of Disposition: 19:46 <Yann Leary - Last Filed: 03/03/20 23:11> Clinical Impression: Alcoholic intoxication, Alcohol withdrawal Disposition: ADMITTED IP TO THIS HOSP
[2020-03-03] MEDS ORDERED: LORazepam 2 MG/ML INJ IV PRN ×2 (19:48)
[2020-03-03] MEDS ORDERED: THIAMINE 100 MG/ML 2 ML VIAL IM STA (19:48)
[2020-03-03 21:46] LABS: Glucose,Whole Blood 158 mg/dL (75-99)
[2020-03-03] MEDS: SODIUM CHLORIDE 0.9% 1,000 ML IV SCH (21:48)
[2020-03-03] MEDS: LORazepam 2 MG/ML INJ IV PRN (21:49)
[2020-03-03] MEDS: INSULIN ASPART (NovoLOG) 100 UNIT/ML VIAL SQ SCH (21:49)
[2020-03-04] MEDS: LORazepam 2 MG/ML INJ IV PRN ×6 (01:26→23:47)
[2020-03-04] MEDS: SODIUM CHLORIDE 0.9% 1,000 ML IV SCH ×3 (04:53→17:48)
[2020-03-04 06:46] LABS: Glucose,Whole Blood 118 mg/dL (75-99)
[2020-03-04] MEDS: INSULIN ASPART (NovoLOG) 100 UNIT/ML VIAL SQ SCH ×5 (07:18→21:35)
[2020-03-04] MEDS: THIAMINE 100 MG TAB PO SCH ×2 (08:22→17:45)
[2020-03-04] MEDS ORDERED: PANTOPRAZOLE 40 MG/10 ML VIAL IVP SCH (11:30)
[2020-03-04 11:48] LABS: Glucose,Whole Blood 165 mg/dL (75-99)
[2020-03-04 14:19] LABS: Hemoglobin A1C 7.1 % (4.0-6.0)
--- NOTE | 2020-03-04 16:20 | P.HPIM ---
History of Present Illness 34-year-old male admitted the for alcohol withdrawal. Patient drinks one fifth of vodka every day patient is willing to quit alcohol. Patient is presently having mild withdrawal symptoms patient is on Ativan 0 bleed protocol. Patient was comparing of epigastric abdominal discomfort along with nausea vomiting. Review of Systems REVIEW OF SYSTEMS: CONSTITUTIONAL: No fever, no malaise, no fatigue. HEENT: No recent visual problems or hearing problems. Denied any sore throat. CARDIOVASCULAR: No chest pain, orthopnea, PND, no palpitations, no syncope. PULMONARY: No shortness of breath, no cough, no hemoptysis. GASTROINTESTINAL: No diarrhea. NEUROLOGICAL: No headaches, no weakness, no numbness. HEMATOLOGICAL: Denies any bleeding or petechiae. GENITOURINARY: Denies any burning micturition, frequency, or urgency. MUSCULOSKELETAL/RHEUMATOLOGICAL: Denies any joint pain, swelling, or any muscle pain. ENDOCRINE: Denies any polyuria or polydipsia. The rest of the 14-point review of systems is negative. Past Medical History Past Medical History: Hypertension Additional Past Medical History / Comment(s): alcohol abuse History of Any Multi-Drug Resistant Organisms: None Reported Past Surgical History: Ear Surgery Past Anesthesia/Blood Transfusion Reactions: No Reported Reaction Past Psychological History: No Psychological Hx Reported Smoking Status: Never smoker Past Alcohol Use History: Abuse, Daily, Heavy Past Drug Use History: None Reported - Past Family History Father Family Medical History: Diabetes Mellitus Medications and Allergies Home Medications Medication Instructions Recorded Confirmed Type Latanoprost/Pf [Latanoprost 0.005% 1 drop BOTH EYES HS 06/10/19 03/03/20 History Eye Drop] Allergies Allergy/AdvReac Type Severity Reaction Status Date / Time No Known Allergies Allergy Verified 03/03/20 19:57 Physical Exam Vitals: Vital Signs Temp Pulse Pulse Resp BP BP Pulse Ox 03/04/20 11:55 98.1 F 91 20 168/99 100 03/04/20 05:00 98.2 F 88 20 169/91 100 03/03/20 21:53 18 03/03/20 21:30 98.0 F 111 H 20 165/98 96 03/03/20 19:30 115 H 18 166/97 99 03/03/20 16:24 98.1 F 152 H 16 163/118 95 Intake and Output 03/04/20 03/04/20 03/04/20 06:59 14:59 22:59 Intake Total 450 800 Balance 450 800 Intake: Intake, IV Titration 800 Amount Sodium Chloride 0.9% 1, 800 000 ml @ 100 mls/hr IV . Q10H RUSS Rx#:[id number] Oral 450 Other: Voiding Method Toilet # Voids 1 PHYSICAL EXAMINATION: GENERAL: The patient is alert and oriented x3, not in any acute distress. Well developed, well nourished. HEENT: Pupils are round and equally reacting to light. EOMI. No scleral icterus. No conjunctival pallor. Normocephalic, atraumatic. No pharyngeal erythema. No thyromegaly. CARDIOVASCULAR: S1 and S2 present. No murmurs, rubs, or gallops. PULMONARY: Chest is clear to auscultation, no wheezing or crackles. ABDOMEN: Soft, nontender, nondistended, normoactive bowel sounds. No palpable organomegaly. MUSCULOSKELETAL: No joint swelling or deformity. EXTREMITIES: No cyanosis, clubbing, or pedal edema. NEUROLOGICAL: Gross neurological examination did not reveal any focal deficits. SKIN: No rashes. Results CBC & Chem 7: 03/03/20 18:23 03/03/20 18:23 Labs: Abnormal Lab Results - Last 24 Hours (Table) 03/03/20 03/03/20 03/03/20 Range/Units 18:23 18:23 18:23 RBC 5.93 H (4.30-5.90) m/uL Hgb 18.6 H (13.0-17.5) gm/dL Hct 54.1 H (39.0-53.0) % Chloride 97 L (98-107) mmol/L Carbon Dioxide 17 L (22-30) mmol/L BUN 7 L (9-20) mg/dL Glucose 234 H (74-99) mg/dL POC Glucose (mg/dL) (75-99) mg/dL Hemoglobin A1c (4.0-6.0) % Total Bilirubin 1.9 H (0.2-1.3) mg/dL AST 90 H (17-59) U/L ALT 62 H (4-49) U/L Alkaline Phosphatase 129 H (38-126) U/L Total Protein 8.4 H (6.3-8.2) g/dL Albumin 5.2 H (3.5-5.0) g/dL Urine Protein 2+ H (Negative) Urine Glucose (UA) 4+ H (Negative) Urine Ketones 3+ H (Negative) Urine Blood Trace H (Negative) Ur Leukocyte Esterase Trace H (Negative) Urine WBC 19 H (0-5) /hpf Ur Squamous Epith Cells 7 H (0-4) /hpf Urine Bacteria Rare H (None) /hpf Hyaline Casts 12 H (0-2) /lpf Urine Mucus Many H (None) /hpf Serum Alcohol 292 H* mg/dL 03/03/20 03/03/20 03/04/20 Range/Units 18:23 21:44 06:44 RBC (4.30-5.90) m/uL Hgb (13.0-17.5) gm/dL Hct (39.0-53.0) % Chloride (98-107) mmol/L Carbon Dioxide (22-30) mmol/L BUN (9-20) mg/dL Glucose (74-99) mg/dL POC Glucose (mg/dL) 158 H 118 H (75-99) mg/dL Hemoglobin A1c 7.1 H (4.0-6.0) % Total Bilirubin (0.2-1.3) mg/dL AST (17-59) U/L ALT (4-49) U/L Alkaline Phosphatase (38-126) U/L Total Protein (6.3-8.2) g/dL Albumin (3.5-5.0) g/dL Urine Protein (Negative) Urine Glucose (UA) (Negative) Urine Ketones (Negative) Urine Blood (Negative) Ur Leukocyte Esterase (Negative) Urine WBC (0-5) /hpf Ur Squamous Epith Cells (0-4) /hpf Urine Bacteria (None) /hpf Hyaline Casts (0-2) /lpf Urine Mucus (None) /hpf Serum Alcohol mg/dL 03/04/20 Range/Units 11:47 RBC (4.30-5.90) m/uL Hgb (13.0-17.5) gm/dL Hct (39.0-53.0) % Chloride (98-107) mmol/L Carbon Dioxide (22-30) mmol/L BUN (9-20) mg/dL Glucose (74-99) mg/dL POC Glucose (mg/dL) 165 H (75-99) mg/dL Hemoglobin A1c (4.0-6.0) % Total Bilirubin (0.2-1.3) mg/dL AST (17-59) U/L ALT (4-49) U/L Alkaline Phosphatase (38-126) U/L Total Protein (6.3-8.2) g/dL Albumin (3.5-5.0) g/dL Urine Protein (Negative) Urine Glucose (UA) (Negative) Urine Ketones (Negative) Urine Blood (Negative) Ur Leukocyte Esterase (Negative) Urine WBC (0-5) /hpf Ur Squamous Epith Cells (0-4) /hpf Urine Bacteria (None) /hpf Hyaline Casts (0-2) /lpf Urine Mucus (None) /hpf Serum Alcohol mg/dL Microbiology - Last 24 Hours (Table) 03/03/20 18:23 Urine Culture - Preliminary Urine,Voided Thrombosis Risk Factor Assmnt - Choose All That Apply Any of the Below Risk Factors Present?: Yes Each Factor Represents 1 point: Obesity (BMI >25) Other Risk Factors: No Other congenital or acquired thrombophilia - If yes, enter type in comment: No Thrombosis Risk Factor Assessment Total Risk Factor Score: 1 Thrombosis Risk Factor Assessment Level: Low Risk Assessment and Plan Plan: Alcohol abuse: Patient will be and Atrovent [place] for protocol for alcohol withdrawal and delirium tremens. 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
[2020-03-04 17:43] LABS: Glucose,Whole Blood 191 mg/dL (75-99)
[2020-03-04 20:50] LABS: Glucose,Whole Blood 171 mg/dL (75-99)
[2020-03-04 21:54] VITALS: RESP 18
[2020-03-05] MEDS: SODIUM CHLORIDE 0.9% 1,000 ML IV SCH (04:46)
[2020-03-05 05:03] VITALS: BP 163/97; PULSE 79; TEMP 98.1
[2020-03-05 07:10] LABS: Glucose,Whole Blood 147 mg/dL (75-99)
[2020-03-05 07:50] LABS: HCT 45.2 % (39.0-53.0); MCH 31.3 pg (25.0-35.0); MCHC 34.1 g/dL (31.0-37.0); MCV 91.7 fL (80.0-100.0); Mean Platelet Volume 12.1; RBC 4.93 m/uL (4.30-5.90); RDW 12.9 % (11.5-15.5); WBC 5.7 k/uL (3.8-10.6)
[2020-03-05 07:51] LABS: HGB 15.4 gm/dL (13.0-17.5)
[2020-03-05] MEDS ORDERED: ENOXAPARIN 40 MG/0.4 ML SYRINGE SQ SCH (09:00)
[2020-03-05 10:07] LABS: ALT 48 U/L (10-49); AST 57 U/L (14-35); African American GFR (CKD) 149.9 (60.0-200.0); Alkaline Phosphatase 95 U/L (41-126); Blood Urea Nitrogen <5.0 mg/dL (9.0-27.0); Calcium 8.4 mg/dL (8.7-10.3); Carbon Dioxide 24.5 mmol/L (21.6-31.8); Chloride 98 mmol/L (96-109); Globulin 2.1 g/dL (1.6-3.3); Glucose 145 mg/dL (70-110); Non-African American GFR(CKD) 129.3 (60.0-200.0); Potassium 3.3 mmol/L (3.5-5.5); Sodium 133 mmol/L (135-145); Total Bilirubin 1.9 mg/dL (0.3-1.2); Total Protein 6.3 g/dL (6.2-8.2)
--- NOTE | 2020-03-05 12:10 | P.DS ---
Providers Date of admission: 03/03/20 20:00 Attending physician: Angel Horn Primary care physician: Stated None Hospital Course: patient left AMA Patient Condition at Discharge: Good Plan - Discharge Summary Discharge Rx Participant: No New Discharge Prescriptions: No Action Latanoprost/Pf [Latanoprost 0.005% Eye Drop] 1 drop BOTH EYES HS Discharge Medication List Latanoprost/Pf [Latanoprost 0.005% Eye Drop] 1 drop BOTH EYES HS 06/10/19 [History] Follow up Appointment(s)/Referral(s): None,Stated [Primary Care Provider] - 1-2 days Discharge Disposition: Left Against Medical Advice
== END 2020-03-05 07:40 | disposition left against medical advice (07) | DRG 894 ==
LOC: EC 16:15 → 6NMEDSUR 20:00
PROVIDERS: ADMIT Internal Medicine; ATTEND Internal Medicine
DX: F10.231 Alcohol dependence with withdrawal delirium (principal); E87.2 Acidosis; K70.30 Alcoholic cirrhosis of liver without ascites; K70.10 Alcoholic hepatitis without ascites; E86.0 Dehydration; R73.9 Hyperglycemia, unspecified; F10.221 Alcohol dependence with intoxication delirium; K29.20 Alcoholic gastritis without bleeding; I10 Essential (primary) hypertension; Y90.8 Blood alcohol level of 240 mg/100 ml or more; Z79.899 Other long term (current) drug therapy; Z83.3 Family history of diabetes mellitus
CPT/HCPCS: 36415; 80053; 80306; 80320; 81001; 82009; 83036; 83690; 83735; 85025; 85027; 87086; 93005; 96361; 96374; 96375; 96376; 99285

== ENCOUNTER 2020-04-11 04:30 | Inpatient (IN) | payer OTHER ==
[2020-04-11] MEDS ORDERED: SODIUM CHLORIDE 0.9% 1,000 ML IV ONE (05:02)
[2020-04-11 05:26] LABS: Basophils # (A) 0.1 k/uL (0-0.2); Basophils % (A) 1 %; Eosinophils % (A) 1 %; HCT 52.1 % (39.0-53.0); HGB 18.1 gm/dL (13.0-17.5); Lymphocytes # (A) 2.2 k/uL (1.0-4.8); Lymphocytes % (A) 34 %; MCH 32.1 pg (25.0-35.0); MCHC 34.7 g/dL (31.0-37.0); MCV 92.4 fL (80.0-100.0); Mean Platelet Volume 7.9; Monocytes # (A) 0.3 k/uL (0-1.0); Monocytes % (A) 4 %; Neutrophils # (A) 3.8 k/uL (1.3-7.7); Neutrophils % (A) 59 %; Platelet Count 254 k/uL (150-450); RBC 5.64 m/uL (4.30-5.90); RDW 12.8 % (11.5-15.5); WBC 6.5 k/uL (3.8-10.6)
[2020-04-11 05:32] LABS: Appearance,Urine Clear (Clear); Bilirubin,Urine Negative (Negative); Blood,Urine Small (Negative); Color,Urine Yellow; Glucose,Urine (UA) 4+ (Negative); Hyaline Casts,Urine 101 /lpf (0-2); Leukocyte Esterase,Urine Negative (Negative); Mucus,Urine Rare /hpf; Nitrite,Urine Negative (Negative); PH, Urine 5.5 (5.0-8.0); Protein,Urine 2+ (Negative); RBC,Urine <1 /hpf (0-5); Specific Gravity,Urine 1.019 (1.001-1.035); Squamous Epithelial Cell,Urine <1 /hpf (0-4); Urobilinogen,Urine <2.0 mg/dL (<2.0); WBC,Urine 1 /hpf (0-5)
[2020-04-11] MEDS ORDERED: THIAMINE 100 MG/ML 2 ML VIAL IM STA (05:33)
[2020-04-11] MEDS ORDERED: LORazepam 2 MG/ML INJ IV PRN ×2 (05:33)
[2020-04-11 05:34] LABS: ALT 53 U/L (4-49); AST 62 U/L (17-59); African American GFR (CKD) >90 (>60 ml/min/1.73 sqM); Alkaline Phosphatase 137 U/L (38-126); Anion Gap 22 mmol/L; Blood Urea Nitrogen 4 mg/dL (9-20); Carbon Dioxide 16 mmol/L (22-30); Chloride 97 mmol/L (98-107); Glucose 292 mg/dL (74-99); Non-African American GFR(CKD) >90 (>60 ml/min/1.73 sqM); Potassium 3.7 mmol/L (3.5-5.1); Sodium 135 mmol/L (137-145); Total Bilirubin 1.1 mg/dL (0.2-1.3); Total Protein 8.4 g/dL (6.3-8.2)
[2020-04-11 05:40] LABS: Ketones,Urine 2+ (Negative)
--- NOTE | 2020-04-11 05:43 | ED ---
Alcohol HPI - General Chief Complaint: Alcohol Stated Complaint: alcohol withdrawal Time Seen by Provider: 04/11/20 04:41 Source: patient Mode of arrival: ambulatory Limitations: no limitations - History of Present Illness Initial Comments: Emmanuel is a 34yo M with history of alcohol abuse. He presents the emergency department today by private vehicle for evaluation of impending alcohol withdrawal. Patient reports he was admitted for alcohol withdraw last month, he was talking with someone named Huey here in the hospital about being placed in a rehab however he decided to go home and was only able to remain sober for a short period of time. He reports that he has been drinking at least a fifth to a fifth and a half a day of vodka since that time. Patient states that his last drink was earlier today but then again he wants help to quit. Patient states that he is feeling very shaky and nauseated feels like he is going through withdrawals. He has no history of delirium tremens or seizures with withdrawal. MD Complaint: alcohol intoxication, alcohol withdrawal -: hour(s) Previous Visits for Alcohol Intoxication?: Yes Recent Trauma: No Associated Symptoms: tremors - Related Data Home Medications Medication Instructions Recorded Confirmed Latanoprost/Pf [Latanoprost 0.005% 1 drop BOTH EYES HS 06/10/19 03/03/20 Eye Drop] Allergies Allergy/AdvReac Type Severity Reaction Status Date / Time No Known Allergies Allergy Verified 04/11/20 04:39 Review of Systems ROS Statement: Those systems with pertinent positive or pertinent negative responses have been documented in the HPI. ROS Other: All systems not noted in ROS Statement are negative. Past Medical History Past Medical History: Hypertension Additional Past Medical History / Comment(s): alcohol abuse, glaucoma History of Any Multi-Drug Resistant Organisms: None Reported Past Surgical History: Ear Surgery Past Anesthesia/Blood Transfusion Reactions: No Reported Reaction Past Psychological History: No Psychological Hx Reported Smoking Status: Never smoker Past Alcohol Use History: Abuse, Daily, Heavy Past Drug Use History: None Reported - Past Family History Father Family Medical History: Diabetes Mellitus General Exam - General Exam Comments Initial Comments: Physical Exam GENERAL: Appears uncomfortable, tremulous and sweating HENT: Normocephalic, Atraumatic. EYES: PERRL, EOMI PULMONARY: Unlabored respirations. CARDIOVASCULAR: RRR Warm and well perfused extremities ABDOMEN: Non-distended SKIN: No rashes or bruising : Deferred NEUROLOGIC: Alert and oriented Normal speech Normal gait MUSCULOSKELETAL: Moving all extremities with no apparent injury PSYCHIATRIC: No SI/HI Limitations: no limitations Course Vital Signs 04/11/20 04/11/20 04:32 05:45 Temperature 97.6 F 97.8 F Pulse Rate 78 82 Respiratory 18 18 Rate Blood Pressure 169/112 142/90 O2 Sat by Pulse 99 98 Oximetry Medical Decision Making - Medical Decision Making Patient was seen and evaluated, history obtained from patient and medical record 34yo M with hx of alcohol withdraw, currently intoxicated but showing signs of withdraw Labs and [facility] protocol ordered Labs with hyperglycemia, elevated anion gap - likely alcoholic ketosis and previously undiagnosed DM IVF infusing - glucose improved from 290 to 230 with 1L IVF, will hold Insulin at this time Patient care discussed with Dr. Watkins of [facility] physician group who accepts admission - Lab Data Result diagrams: 04/11/20 05:07 04/11/20 05:07 Lab Results 04/11/20 04/11/20 04/11/20 Range/Units 05:07 05:07 05:07 WBC 6.5 (3.8-10.6) k/uL RBC 5.64 (4.30-5.90) m/uL Hgb 18.1 H (13.0-17.5) gm/dL Hct 52.1 (39.0-53.0) % MCV 92.4 (80.0-100.0) fL MCH 32.1 (25.0-35.0) pg MCHC 34.7 (31.0-37.0) g/dL RDW 12.8 (11.5-15.5) % Plt Count 254 (150-450) k/uL Neutrophils % 59 % Lymphocytes % 34 % Monocytes % 4 % Eosinophils % 1 % Basophils % 1 % Neutrophils # 3.8 (1.3-7.7) k/uL Lymphocytes # 2.2 (1.0-4.8) k/uL Monocytes # 0.3 (0-1.0) k/uL Eosinophils # 0.0 (0-0.7) k/uL Basophils # 0.1 (0-0.2) k/uL Sodium 135 L (137-145) mmol/L Potassium 3.7 (3.5-5.1) mmol/L Chloride 97 L (98-107) mmol/L Carbon Dioxide 16 L (22-30) mmol/L Anion Gap 22 mmol/L BUN 4 L (9-20) mg/dL Creatinine 0.64 L (0.66-1.25) mg/dL Est GFR (CKD-EPI)AfAm >90 (>60 ml/min/1.73 sqM) Est GFR (CKD-EPI)NonAf >90 (>60 ml/min/1.73 sqM) Glucose 292 H (74-99) mg/dL POC Glucose (mg/dL) (75-99) mg/dL POC Glu Lead Software Engineer ID Calcium 9.0 (8.4-10.2) mg/dL Magnesium 2.0 (1.6-2.3) mg/dL Total Bilirubin 1.1 (0.2-1.3) mg/dL AST 62 H (17-59) U/L ALT 53 H (4-49) U/L Alkaline Phosphatase 137 H (38-126) U/L Total Protein 8.4 H (6.3-8.2) g/dL Albumin 5.0 (3.5-5.0) g/dL Urine Color Yellow Urine Appearance Clear (Clear) Urine pH 5.5 (5.0-8.0) Ur Specific [place] 1.019 (1.001-1.035) Urine Protein 2+ H (Negative) Urine Glucose (UA) 4+ H (Negative) Urine Ketones 2+ H (Negative) Urine Blood Small H (Negative) Urine Nitrite Negative (Negative) Urine Bilirubin Negative (Negative) Urine Urobilinogen <2.0 (<2.0) mg/dL Ur Leukocyte Esterase Negative (Negative) Urine RBC <1 (0-5) /hpf Urine WBC 1 (0-5) /hpf Ur Squamous Epith Cells <1 (0-4) /hpf Hyaline Casts 101 H (0-2) /lpf Urine Mucus Rare H (None) /hpf Serum Alcohol 327 H* mg/dL 04/11/20 Range/Units 06:03 WBC (3.8-10.6) k/uL RBC (4.30-5.90) m/uL Hgb (13.0-17.5) gm/dL Hct (39.0-53.0) % MCV (80.0-100.0) fL MCH (25.0-35.0) pg MCHC (31.0-37.0) g/dL RDW (11.5-15.5) % Plt Count (150-450) k/uL Neutrophils % % Lymphocytes % % Monocytes % % Eosinophils % % Basophils % % Neutrophils # (1.3-7.7) k/uL Lymphocytes # (1.0-4.8) k/uL Monocytes # (0-1.0) k/uL Eosinophils # (0-0.7) k/uL Basophils # (0-0.2) k/uL Sodium (137-145) mmol/L Potassium (3.5-5.1) mmol/L Chloride (98-107) mmol/L Carbon Dioxide (22-30) mmol/L Anion Gap mmol/L BUN (9-20) mg/dL Creatinine (0.66-1.25) mg/dL Est GFR (CKD-EPI)AfAm (>60 ml/min/1.73 sqM) Est GFR (CKD-EPI)NonAf (>60 ml/min/1.73 sqM) Glucose (74-99) mg/dL POC Glucose (mg/dL) 230 H (75-99) mg/dL POC Glu Lead Software Engineer ID Dusty, Emelyn Calcium (8.4-10.2) mg/dL Magnesium (1.6-2.3) mg/dL Total Bilirubin (0.2-1.3) mg/dL AST (17-59) U/L ALT (4-49) U/L Alkaline Phosphatase (38-126) U/L Total Protein (6.3-8.2) g/dL Albumin (3.5-5.0) g/dL Urine Color Urine Appearance (Clear) Urine pH (5.0-8.0) Ur Specific [place] (1.001-1.035) Urine Protein (Negative) Urine Glucose (UA) (Negative) Urine Ketones (Negative) Urine Blood (Negative) Urine Nitrite (Negative) Urine Bilirubin (Negative) Urine Urobilinogen (<2.0) mg/dL Ur Leukocyte Esterase (Negative) Urine RBC (0-5) /hpf Urine WBC (0-5) /hpf Ur Squamous Epith Cells (0-4) /hpf Hyaline Casts (0-2) /lpf Urine Mucus (None) /hpf Serum Alcohol mg/dL Disposition Clinical Impression: Alcoholic hepatitis, Alcohol withdrawal, Alcoholic intoxication Disposition: ADMITTED IP TO THIS HOSP Condition: Serious
[2020-04-11 05:47] LABS: Alcohol 327 mg/dL
[2020-04-11] MEDS: SODIUM CHLORIDE 0.9% 1,000 ML IV SCH ×4 (05:53→22:06)
[2020-04-11 06:05] LABS: Glucose,Whole Blood 230 mg/dL (75-99)
[2020-04-11] MEDS ORDERED: NALOXONE 0.4 MG/ML 1 ML VIAL IV PRN (06:08)
[2020-04-11] MEDS ORDERED: IBUPROFEN 400 MG TAB PO PRN (06:08)
[2020-04-11] MEDS ORDERED: ONDANSETRON 4 MG/2 ML VIAL IVP STA (06:43)
[2020-04-11 07:32] LABS: Glucose,Whole Blood 206 mg/dL (75-99)
[2020-04-11] MEDS: INSULIN ASPART (NovoLOG) 100 UNIT/ML VIAL SQ SCH ×4 (07:39→20:22)
[2020-04-11] MEDS: LORazepam 2 MG/ML INJ IV PRN ×3 (08:59→19:33)
[2020-04-11] MEDS ORDERED: ONDANSETRON 4 MG/2 ML VIAL IVP PRN (09:06)
[2020-04-11] MEDS ORDERED: MAG HYDROX/AL HYDROX/SIMETH 30 ML CUP PO PRN (09:46)
[2020-04-11] MEDS ORDERED: ACETAMINOPHEN TAB 325 MG TAB PO PRN (09:46)
--- NOTE | 2020-04-11 09:50 | P.HPIM ---
History of Present Illness H&P Date: 04/11/20 Chief Complaint: ETOH abuse Patient is a 34-year-old male with history of alcohol abuse who presented to the emergency department for impending alcohol withdrawal. On arrival to the ER he was hypertensive with blood pressure 169/112 his vital signs were otherwise normal. Initial laboratory analysis showed a serum alcohol level of 327, 4+ glucose and 2+ ketones in the urine. CBC was unremarkable. He was found to have anion gap metabolic acidosis with a glucose of 292. His AST was 62, ALT 53, alkaline phosphatase 137, and bilirubin normal at 1.1. He was started on IV fluids, Zofran, and CIWA protocol. He was admitted for further management. He was also hospitalized 03/03 through 03/09 alcohol and records from the stay were reviewed. Patient seen and examined at bedside. He reports that his last drink was on 04/10 between 10 PM and midnight. He then started having some nausea and vomiting at home. Today on arrival to the ER he continued to have vomiting. He also reports that he is having hot flashes. He denies any headache, tremors, diaphoresis, or anxiety. He was here last month for alcohol withdrawal. He reports he started drinking shortly after his hospital stay. He did eat with a gentleman at [facility], but did not follow-up. He has been drinking approximately 1-1/2 fifths daily. It is not approximately a month since he has gone a day without drinking. He states that before coming to the hospital he had not eaten anything in about 3 days due to binging on alcohol. He denies any recent cough, cold, fever, flu, diarrhea, or constipation. He reports that he doesn't want to abstain from alcohol and is willing to go to rehab. Review of Systems Pertinent positives and negatives as discussed in HPI, a complete review of systems was performed and all other systems are negative. Past Medical History Past Medical History: Diabetes Mellitus, Eye Disorder, Hypertension Additional Past Medical History / Comment(s): ETOH abuse, Hx of ETOH withdrawal (no seizrues or ventilation), Glaucoma History of Any Multi-Drug Resistant Organisms: None Reported Past Surgical History: Ear Surgery Additional Past Surgical History / Comment(s): Bilateral myringotomy/tubes Past Anesthesia/Blood Transfusion Reactions: No Reported Reaction Smoking Status: Never smoker Past Alcohol Use History: Daily Past Drug Use History: Marijuana - Past Family History Father Family Medical History: Diabetes Mellitus Mother Family Medical History: Vascular Disorder Additional Family Medical History / Comment(s): Mother of a brain aneurysm. Medications and Allergies Home Medications Medication Instructions Recorded Confirmed Type Latanoprost/Pf [Latanoprost 0.005% 1 drop BOTH EYES HS 06/10/19 04/11/20 History Eye Drop] Allergies Allergy/AdvReac Type Severity Reaction Status Date / Time No Known Allergies Allergy Verified 04/11/20 06:36 Physical Exam Osteopathic Statement: *. No significant issues noted on an osteopathic structural exam other than those noted in the History and Physical/Consult. Vitals: Vital Signs Temp Pulse Pulse Resp BP BP Pulse Ox 04/11/20 07:28 98.1 F 109 H 18 97/63 95 04/11/20 06:45 98.4 F 86 18 137/96 98 04/11/20 05:45 97.8 F 82 18 142/90 98 04/11/20 04:32 97.6 F 78 18 169/112 99 Intake and Output 04/10/20 04/11/20 04/11/20 22:59 06:59 14:59 Other: Weight 100.153 kg 100.153 kg Results CBC & Chem 7: 04/11/20 05:07 04/11/20 05:07 Labs: Abnormal Lab Results - Last 24 Hours (Table) 04/11/20 04/11/20 04/11/20 Range/Units 05:07 05:07 05:07 Hgb 18.1 H (13.0-17.5) gm/dL Sodium 135 L (137-145) mmol/L Chloride 97 L (98-107) mmol/L Carbon Dioxide 16 L (22-30) mmol/L BUN 4 L (9-20) mg/dL Creatinine 0.64 L (0.66-1.25) mg/dL Glucose 292 H (74-99) mg/dL POC Glucose (mg/dL) (75-99) mg/dL AST 62 H (17-59) U/L ALT 53 H (4-49) U/L Alkaline Phosphatase 137 H (38-126) U/L Total Protein 8.4 H (6.3-8.2) g/dL Urine Protein 2+ H (Negative) Urine Glucose (UA) 4+ H (Negative) Urine Ketones 2+ H (Negative) Urine Blood Small H (Negative) Hyaline Casts 101 H (0-2) /lpf Urine Mucus Rare H (None) /hpf Serum Alcohol 327 H* mg/dL 04/11/20 04/11/20 Range/Units 06:03 07:30 Hgb (13.0-17.5) gm/dL Sodium (137-145) mmol/L Chloride (98-107) mmol/L Carbon Dioxide (22-30) mmol/L BUN (9-20) mg/dL Creatinine (0.66-1.25) mg/dL Glucose (74-99) mg/dL POC Glucose (mg/dL) 230 H 206 H (75-99) mg/dL AST (17-59) U/L ALT (4-49) U/L Alkaline Phosphatase (38-126) U/L Total Protein (6.3-8.2) g/dL Urine Protein (Negative) Urine Glucose (UA) (Negative) Urine Ketones (Negative) Urine Blood (Negative) Hyaline Casts (0-2) /lpf Urine Mucus (None) /hpf Serum Alcohol mg/dL Thrombosis Risk Factor Assmnt - Choose All That Apply Any of the Below Risk Factors Present?: Yes Each Factor Represents 1 point: Obesity (BMI >25) Other Risk Factors: No Other congenital or acquired thrombophilia - If yes, enter type in comment: No Thrombosis Risk Factor Assessment Total Risk Factor Score: 1 Thrombosis Risk Factor Assessment Level: Low Risk Assessment and Plan Assessment: ETOH withdrawal - CIWA, thiamine, Folic acid - supportive care - Social work consult Gastritis due to ETOH use - Pepcid daily DM 2 with hyperglycemia - 03/03/20 A1C 7.1 - Will need medication on discharge - DM educator to see patient tomorrow, doesn't want to talk today - SSI, likely metformin on discharge. Obesity with BMI 34.6 - outpatient structured weight loss Anion gap metabolic acidosis - likely due to alcoholic ketosis - repeat labs at 1200 Transaminitis - likely due to ETOH use - Repeat in AM The patient is admitted with an anticipated greater than 2 midnight stay for evaluation of ETOH withdrawal. CODE STATUS:full DVT prophylaxis: SCDs Discussed with: patient, nursing Anticipated discharge date: 2-[address]: home vs rehab A total of 60 minutes was spent on the care of this complex patient more than 50% of the time was spent in counseling and care coordination.
[2020-04-11] MEDS: FOLIC ACID 1 MG TAB PO SCH (10:50)
[2020-04-11] MEDS: FAMOTIDINE 20 MG/2 ML VIAL IV SCH (10:50)
[2020-04-11 11:06] LABS: Glucose,Whole Blood 179 mg/dL (75-99)
[2020-04-11 17:09] LABS: Glucose,Whole Blood 179 mg/dL (75-99)
[2020-04-11] MEDS: THIAMINE 100 MG TAB PO SCH (17:27)
[2020-04-11 20:04] LABS: Glucose,Whole Blood 207 mg/dL (75-99)
[2020-04-11 23:27] LABS: African American GFR (CKD) 133.2 (60.0-200.0); Anion Gap 17.5 mmol/L (4.00-12.00); BUN/Creat Ratio 6.25 Ratio (12.00-20.00); Calcium 8.3 mg/dL (8.7-10.3); Carbon Dioxide 20.5 mmol/L (21.6-31.8); Non-African American GFR(CKD) 114.9 (60.0-200.0); Potassium 4.1 mmol/L (3.5-5.5)
[2020-04-12] MEDS: SODIUM CHLORIDE 0.9% 1,000 ML IV SCH ×3 (02:09→12:28)
[2020-04-12 05:48] LABS: HCT 46.4 % (39.0-53.0); HGB 15.7 gm/dL (13.0-17.5); MCH 31.7 pg (25.0-35.0); MCHC 33.8 g/dL (31.0-37.0); MCV 93.7 fL (80.0-100.0); Mean Platelet Volume 8.8; Platelet Count 143 k/uL (150-450); RBC 4.95 m/uL (4.30-5.90)
[2020-04-12 07:23] LABS: Glucose,Whole Blood 161 mg/dL (75-99)
[2020-04-12] MEDS: INSULIN ASPART (NovoLOG) 100 UNIT/ML VIAL SQ SCH ×2 (08:05→12:42)
[2020-04-12] MEDS: FAMOTIDINE 20 MG/2 ML VIAL IV SCH (08:06)
[2020-04-12] MEDS: FOLIC ACID 1 MG TAB PO SCH (08:06)
[2020-04-12] MEDS: THIAMINE 100 MG TAB PO SCH (08:06)
[2020-04-12 10:02] LABS: ALT 46 U/L (10-49); AST 45 U/L (14-35); African American GFR (CKD) 140.7 (60.0-200.0); Albumin/Globulin Ratio 1.74 (1.60-3.17); Alkaline Phosphatase 96 U/L (41-126); Blood Urea Nitrogen <5.0 mg/dL (9.0-27.0); Calcium 8.1 mg/dL (8.7-10.3); Carbon Dioxide 27.3 mmol/L (21.6-31.8); Chloride 98 mmol/L (96-109); Globulin 2.3 g/dL (1.6-3.3); Glucose 170 mg/dL (70-110); Magnesium 1.8 mg/dL (1.5-2.4); Non-African American GFR(CKD) 121.4 (60.0-200.0); Potassium 3.7 mmol/L (3.5-5.5); Sodium 135 mmol/L (135-145); Total Protein 6.3 g/dL (6.2-8.2)
[2020-04-12] MEDS ORDERED: amLODIPine 5 MG TAB PO STA (12:08)
[2020-04-12 12:10] VITALS: TEMP 97.9
[2020-04-12 12:11] VITALS: BP 178/124; PULSE 109; RESP 18
[2020-04-12 12:38] LABS: Glucose,Whole Blood 172 mg/dL (75-99)
--- NOTE | 2020-04-12 17:04 | P.DS ---
Providers Date of admission: 04/11/20 06:09 Expected date of discharge: 04/12/20 Attending physician: Jarad Watkins MD Primary care physician: Stated None Hospital Course: Discharge Diagnosis: Alcohol withdrawal Alcoholic hepatitis, improving Diabetes mellitus type 2, newly discovered from blood work February 2020 Hypertension, accelerated-likely component of alcohol withdrawal and primary hypertension Obesity with BMI 34.6 Gastritis due to EtOH use, resolved And Metabolic acidosis secondary to alcoholic ketosis Hospital Course: Patient is a 34-year-old male with history of alcohol abuse who presented to the emergency department for impending alcohol withdrawal. On arrival to the ER he was hypertensive with blood pressure 169/112 his vital signs were otherwise normal. Initial laboratory analysis showed a serum alcohol level of 327, 4+ glucose and 2+ ketones in the urine. CBC was unremarkable. He was found to have anion gap metabolic acidosis with a glucose of 292. His AST was 62, ALT 53, alkaline phosphatase 137, and bilirubin normal at 1.1. He was started on IV fluids, Zofran, and CIWA protocol. He was admitted for further management. He was also hospitalized 03/03 through 03/09 for alcohol withdrawal and records from the stay were reviewed he had a hemoglobin A1C of 7.1, his acidosis resolved with IV fluids. His CIWA score decrease in his asking to be discharged. He was able to meet with the dietitian and family educator prior to discharge. Diabetic testing supplies were written for. Patient was given education on metformin twice daily with common side effects and is agreeable to taking this medication. He was also informed that he should undergo an ophthalmologic examination. We had a josef discussion about his need to quit drinking. He has been trying to maintain sobriety though has been difficult. We discussed risks and benefits of naltrexone therapy and he is willing to try this. He did not have a primary care physician on arrival however we were able to schedule Dr. Chai Aggarwal for follow-up. He was noted to be significantly hypertensive which was thought initially to be secondary to alcohol withdrawal. However his hypertension continued despite improvement in his withdrawal symptoms. He was started on Norvasc and this will be continued on discharge. Patient was discharged in stable condition with the above directions. Patient was initially admitted as inpatient due to the severity of his alcohol withdrawal, however he improved after than anticipated and was subsequently discharged. Patient seen and examined at bedside. Feeling well today, no headache, no tremors, no sweatiness, no nausea, no vomiting. Feels as though he can manage his withdrawal at home without additional benzodiazepines. Discussion about metformin and naltrexone was completed including risks, benefits, and common side effects of therapy. Vital signs reviewed and stable. General: non toxic, no distress, appears at stated age Derm: warm, dry Head: atraumatic, normocephalic, symmetric Eyes: EOMI, no lid lag, anicteric sclera Mouth: no lip lesion, mucus membranes moist Cardiovascular: S1S2 reg, no murmur, positive posterior tibial pulse bilateral, Lungs: CTA bilateral, no rhonchi, no rales , no accessory muscle use Abdominal: soft, nontender to palpation, no guarding, no appreciable organomegaly Ext: no gross muscle atrophy, no edema, no contractures Neuro: CN II-XI grossly intact, no focal neuro deficits Psych: Alert, oriented, appropriate affect A total of 35 minutes of time were spent preparing this complex discharge summary . Patient Condition at Discharge: Stable Plan - Discharge Summary Discharge Rx Participant: No New Discharge Prescriptions: New Folic Acid 1 mg PO DAILY #15 tab metFORMIN HCL [Glucophage] 500 mg PO BID #60 tab Naltrexone HCl [Revia] 50 mg PO DAILY #30 tablet Thiamine [Vitamin B-1] 100 mg PO BID-W/MEALS #30 tab amLODIPine [Norvasc] 5 mg PO DAILY #30 tab Continue Latanoprost/Pf [Latanoprost 0.005% Eye Drop] 1 drop BOTH EYES HS Discharge Medication List Latanoprost/Pf [Latanoprost 0.005% Eye Drop] 1 drop BOTH EYES HS 06/10/19 [History] Folic Acid 1 mg PO DAILY #15 tab 04/12/20 [Rx] Naltrexone HCl [Revia] 50 mg PO DAILY #30 tablet 04/12/20 [Rx] Thiamine [Vitamin B-1] 100 mg PO BID-W/MEALS #30 tab 04/12/20 [Rx] amLODIPine [Norvasc] 5 mg PO DAILY #30 tab 04/12/20 [Rx] metFORMIN HCL [Glucophage] 500 mg PO BID #60 tab 04/12/20 [Rx] Follow up Appointment(s)/Referral(s): [facility] [NON-STAFF] - 1 Week Chai Leon [STAFF PHYSICIAN] - 04/17/20 2:15 pm Activity/Diet/Wound Care/Special Instructions: Activity: as tolerated Diet: carb consistent Special Instructions: Make a log of blood sugars once daily in the morning befor eating and drinking Abstain from alcohol Discharge Disposition: HOME SELF-CARE
== END 2020-04-12 15:29 | disposition home or self-care (01) | DRG 897 ==
LOC: EC 04:30 → 4SSUR 06:09 → 6NMEDSUR 07:04
PROVIDERS: ADMIT Internal Medicine; ATTEND Internal Medicine
DX: F10.239 Alcohol dependence with withdrawal, unspecified (principal); E87.2 Acidosis; E66.9 Obesity, unspecified; E11.65 Type 2 diabetes mellitus with hyperglycemia; I10 Essential (primary) hypertension; K29.20 Alcoholic gastritis without bleeding; K70.10 Alcoholic hepatitis without ascites; Y90.8 Blood alcohol level of 240 mg/100 ml or more; E88.89 Other specified metabolic disorders; Z68.34 Body mass index [BMI] 34.0-34.9, adult; Z83.3 Family history of diabetes mellitus; Z98.890 Other specified postprocedural states; Z82.49 Family history of ischemic heart disease and other diseases of the circulatory system
CPT/HCPCS: 36415; 80048; 80053; 80320; 81001; 82075; 83735; 85025; 85027; 96361; 96372; 96374; 96375; 99285

== ENCOUNTER 2020-07-04 23:08 | Emergency (ER) | payer OTHER ==
[2020-07-04 23:21] VITALS: TEMP 98.8
[2020-07-04] MEDS ORDERED: THIAMINE 100 MG/ML 2 ML VIAL IM STA (23:32)
[2020-07-04] MEDS ORDERED: LORazepam 2 MG/ML INJ IV PRN ×3 (23:32)
--- NOTE | 2020-07-04 23:36 | ED ---
Alcohol HPI - General Chief Complaint: Alcohol Stated Complaint: alcohol withdrawal Time Seen by Provider: 07/04/20 23:25 Source: patient Mode of arrival: ambulatory Limitations: no limitations - History of Present Illness Initial Comments: Patient is a 34-year-old male, with history of alcohol abuse, hypertension and diabetes, presenting to the emergency Department with complaints of alcohol withdrawal. Patient states his last drink was approximately 12 hours ago, he normally drinks a pint of liquor a day. Patient is complaining of nausea, vomiting, palpitations. He denies any chest pain, no shortness of breath. No recent fever or chills. No abdominal pain. He denies history of seizures. He has no further complaints at this time. Patient is afebrile on arrival, pulse is 132, rest of vitals are normal. - Related Data Home Medications Medication Instructions Recorded Confirmed Latanoprost/Pf [Latanoprost 0.005% 1 drop BOTH EYES HS 06/10/19 04/11/20 Eye Drop] Previous Rx's Medication Instructions Recorded Folic Acid 1 mg PO DAILY #15 tab 04/12/20 Naltrexone HCl [Revia] 50 mg PO DAILY #30 tablet 04/12/20 Thiamine [Vitamin B-1] 100 mg PO BID-W/MEALS #30 tab 04/12/20 amLODIPine [Norvasc] 5 mg PO DAILY #30 tab 04/12/20 metFORMIN HCL [Glucophage] 500 mg PO BID #60 tab 04/12/20 diazePAM [Valium] 5 mg PO Q8HR PRN 3 Days #9 tab 07/05/20 Allergies Allergy/AdvReac Type Severity Reaction Status Date / Time No Known Allergies Allergy Verified 07/04/20 23:21 Review of Systems ROS Statement: Those systems with pertinent positive or pertinent negative responses have been documented in the HPI. ROS Other: All systems not noted in ROS Statement are negative. Past Medical History Past Medical History: Diabetes Mellitus, Eye Disorder, Hypertension Additional Past Medical History / Comment(s): ETOH abuse, Hx of ETOH withdrawal, Glaucoma History of Any Multi-Drug Resistant Organisms: None Reported Past Surgical History: Ear Surgery Additional Past Surgical History / Comment(s): Bilateral myringotomy/tubes Past Anesthesia/Blood Transfusion Reactions: No Reported Reaction Past Psychological History: No Psychological Hx Reported Smoking Status: Never smoker Past Alcohol Use History: Daily Past Drug Use History: None Reported, Marijuana - Past Family History Father Family Medical History: Diabetes Mellitus Mother Family Medical History: Vascular Disorder Additional Family Medical History / Comment(s): Mother of a brain aneurysm. General Exam - General Exam Comments Initial Comments: GENERAL: Patient is well-developed and well-nourished. Patient is nontoxic and in mild distress, appears anxious. HEAD: Atraumatic, normocephalic. EYES: Pupils equal round and reactive to light, extraocular movements intact, sclera anicteric, conjunctiva are normal. Eyelids were unremarkable. ENT: TMs normal, nares patent, oropharynx clear without exudates. Moist mucous membranes. NECK: Normal range of motion, supple without lymphadenopathy or JVD. LUNGS: Unlabored respirations. Breath sounds clear to auscultation bilaterally and equal. No wheezes rales or rhonchi. HEART: Tachycardia rate and rhythm without murmurs, rubs or gallops. ABDOMEN: Soft, nontender, normoactive bowel sounds. No guarding, no rebound. No masses appreciated. : Deferred MUSCULOSKELETAL: Normal extremities with adequate strength and normal range of motion, no pitting or edema. No clubbing or cyanosis. NEUROLOGICAL: Patient is alert and oriented x 3. Motor and sensory are also intact. Cranial nerves II through XII grossly intact. Symmetrical smile. Normal speech, normal gait. PSYCH: Normal mood, normal affect. SKIN: Warm, Dry, normal turgor, no rashes or lesions noted. Limitations: no limitations Course Vital Signs 07/04/20 07/05/20 07/05/20 23:18 00:00 00:30 Temperature 98.8 F Pulse Rate 132 H 107 H 103 H Respiratory 20 18 18 Rate Blood Pressure 149/91 156/96 152/105 O2 Sat by Pulse 97 95 95 Oximetry 07/05/20 01:00 Temperature Pulse Rate 97 Respiratory 18 Rate Blood Pressure 140/93 O2 Sat by Pulse 95 Oximetry Medical Decision Making - Medical Decision Making Patient is a 34-year-old male with history of alcohol abuse, presenting for alcohol withdrawals. His last request followers ago, he normally drinks a plan to occur daily. He did arrive tachycardia, rest of vitals were normal. Labs are stable, urine shows 3+ glucose and 2+ ketones, urine tox is negative, serum alcohol 39. Patient did receive 2 mg Ativan, some fluids as well. His vital signs improved, his pulse is 97. Patient resting currently. Patient will be given tablet of Valium to go home with and a few tablets as prescription. He is stable for discharge. He can follow-up with his regular doctor. Patient is in agreement with this plan and care. Return parameters were discussed with the patient he verbalizes understanding. Case discussed with Dr. Andersen. - Lab Data Result diagrams: 07/04/20 23:53 07/04/20 23:53 Lab Results 07/04/20 07/04/20 07/05/20 Range/Units 23:53 23:53 00:00 WBC 6.0 (3.8-10.6) k/uL RBC 5.26 (4.30-5.90) m/uL Hgb 16.8 (13.0-17.5) gm/dL Hct 46.9 (39.0-53.0) % MCV 89.2 (80.0-100.0) fL MCH 32.0 (25.0-35.0) pg MCHC 35.8 (31.0-37.0) g/dL RDW 14.7 (11.5-15.5) % Plt Count 196 (150-450) k/uL MPV 8.7 Neutrophils % 66 % Lymphocytes % 23 % Monocytes % 7 % Eosinophils % 2 % Basophils % 1 % Neutrophils # 3.9 (1.3-7.7) k/uL Lymphocytes # 1.4 (1.0-4.8) k/uL Monocytes # 0.4 (0-1.0) k/uL Eosinophils # 0.1 (0-0.7) k/uL Basophils # 0.1 (0-0.2) k/uL Hyperchromasia Slight Sodium 138 (137-145) mmol/L Potassium 3.7 (3.5-5.1) mmol/L Chloride 104 (98-107) mmol/L Carbon Dioxide 22 (22-30) mmol/L Anion Gap 12 mmol/L BUN 4 L (9-20) mg/dL Creatinine 0.57 L (0.66-1.25) mg/dL Est GFR (CKD-EPI)AfAm >90 (>60 ml/min/1.73 sqM) Est GFR (CKD-EPI)NonAf >90 (>60 ml/min/1.73 sqM) Glucose 164 H (74-99) mg/dL Calcium 8.9 (8.4-10.2) mg/dL Total Bilirubin 1.0 (0.2-1.3) mg/dL AST 39 (17-59) U/L ALT 37 (4-49) U/L Alkaline Phosphatase 113 (38-126) U/L Total Protein 8.1 (6.3-8.2) g/dL Albumin 4.8 (3.5-5.0) g/dL Urine Color Yellow Urine Appearance Clear (Clear) Urine pH 7.0 (5.0-8.0) Ur Specific [place] 1.017 (1.001-1.035) Urine Protein Trace H (Negative) Urine Glucose (UA) 3+ H (Negative) Urine Ketones 2+ H (Negative) Urine Blood Negative (Negative) Urine Nitrite Negative (Negative) Urine Bilirubin Negative (Negative) Urine Urobilinogen <2.0 (<2.0) mg/dL Ur Leukocyte Esterase Negative (Negative) Urine Opiates Screen Not Detected (NotDetected) Ur Oxycodone Screen Not Detected (NotDetected) Urine Methadone Screen Not Detected (NotDetected) Ur Propoxyphene Screen Not Detected (NotDetected) Ur Barbiturates Screen Not Detected (NotDetected) U Tricyclic Antidepress Not Detected (NotDetected) Ur Phencyclidine Scrn Not Detected (NotDetected) Ur Amphetamines Screen Not Detected (NotDetected) U Methamphetamines Scrn Not Detected (NotDetected) U Benzodiazepines Scrn Detected H (NotDetected) Urine Cocaine Screen Not Detected (NotDetected) U Marijuana (THC) Screen Not Detected (NotDetected) Serum Alcohol 39 mg/dL Disposition Clinical Impression: Alcohol withdrawal Disposition: HOME SELF-CARE Condition: Stable Instructions (If sedation given, give patient instructions): Alcohol Withdrawal (ED) Additional Instructions: Please return to the Emergency Department if symptoms worsen or any other concerns. Follow-up with your regular doctor. Prescriptions: diazePAM [Valium] 5 mg PO Q8HR PRN 3 Days #9 tab PRN Reason: Alcohol Withdrawal Is patient prescribed a controlled substance at d/c from ED?: Yes When asked, does pt state using other controlled substances?: No If prescribed controlled substance>3 days was MAPS reviewed?: Prescribed <3 Days Referrals: Chai Leon [Primary Care Provider] - 1-2 days
[2020-07-04 23:59] LABS: Basophils # (A) 0.1 k/uL (0-0.2); Basophils % (A) 1 %; Eosinophils # (A) 0.1 k/uL (0-0.7); Eosinophils % (A) 2 %; HCT 46.9 % (39.0-53.0); HGB 16.8 gm/dL (13.0-17.5); Hyperchromasia Slight; Lymphocytes # (A) 1.4 k/uL (1.0-4.8); Lymphocytes % (A) 23 %; MCHC 35.8 g/dL (31.0-37.0); MCV 89.2 fL (80.0-100.0); Mean Platelet Volume 8.7; Monocytes # (A) 0.4 k/uL (0-1.0); Monocytes % (A) 7 %; Neutrophils # (A) 3.9 k/uL (1.3-7.7); Neutrophils % (A) 66 %; Platelet Count 196 k/uL (150-450); RBC 5.26 m/uL (4.30-5.90); RDW 14.7 % (11.5-15.5)
[2020-07-05 00:04] VITALS: RESP 18
[2020-07-05 00:25] LABS: Appearance,Urine Clear (Clear); Bilirubin,Urine Negative (Negative); Blood,Urine Negative (Negative); Color,Urine Yellow; Glucose,Urine (UA) 3+ (Negative); Leukocyte Esterase,Urine Negative (Negative); Nitrite,Urine Negative (Negative); Protein,Urine Trace (Negative); Specific Gravity,Urine 1.017 (1.001-1.035); Urobilinogen,Urine <2.0 mg/dL (<2.0)
[2020-07-05 00:28] LABS: Chloride 104 mmol/L (98-107)
[2020-07-05 00:29] LABS: ALT 37 U/L (4-49); AST 39 U/L (17-59); African American GFR (CKD) >90 (>60 ml/min/1.73 sqM); Albumin 4.8 g/dL (3.5-5.0); Alcohol 39 mg/dL; Alkaline Phosphatase 113 U/L (38-126); Anion Gap 12 mmol/L; Blood Urea Nitrogen 4 mg/dL (9-20); Calcium 8.9 mg/dL (8.4-10.2); Carbon Dioxide 22 mmol/L (22-30); Glucose 164 mg/dL (74-99); Non-African American GFR(CKD) >90 (>60 ml/min/1.73 sqM); Potassium 3.7 mmol/L (3.5-5.1); Sodium 138 mmol/L (137-145); Total Protein 8.1 g/dL (6.3-8.2)
[2020-07-05 00:49] LABS: Amphetamine Screen,Urine Not Detected (NotDetected); Barbiturate Screen,Urine Not Detected (NotDetected); Benzodiazepines Screen,Urine Detected (NotDetected); Cocaine Screen,Urine Not Detected (NotDetected); Methadone Screen, Urine Not Detected (NotDetected); Opiate Screen,Urine Not Detected (NotDetected); Oxycodone Screen, Urine Not Detected (NotDetected); Phencyclidine Screen,Urine Not Detected (NotDetected); Tricyclic Antidepressant,Urine Not Detected (NotDetected); Urn Cannabinoid Scrn Not Detected (NotDetected)
[2020-07-05 01:20] VITALS: BP 140/93; PULSE 97
[2020-07-05 01:20] LABS: Ketones,Urine 2+ (Negative)
[2020-07-05] MEDS ORDERED: SODIUM CHLORIDE 0.9% 500 ML 500 ML IV STA (01:22)
[2020-07-05] MEDS ORDERED: diazePAM 5 MG TAB PO STA (02:15)
[2020-07-05] MEDS ORDERED: THIAMINE 100 MG TAB PO SCH (07:30)
== END 2020-07-05 02:27 | disposition home or self-care (01) ==
LOC: EC 23:08
DX: F10.239 Alcohol dependence with withdrawal, unspecified (principal); H40.9 Unspecified glaucoma
CPT/HCPCS: 36415; 80053; 85025; 81003; 80306; 99285; 96374; 96376; 96372; G0480; J2060 ×2; J3411; 80320

== ENCOUNTER 2020-08-15 16:12 | Inpatient (IN) | payer OTHER ==
[2020-08-15] MEDS ORDERED: SODIUM CHLORIDE 0.9% 1,000 ML IV STA (16:49)
[2020-08-15] MEDS ORDERED: ONDANSETRON 4 MG/2 ML VIAL IVP STA (16:50)
[2020-08-15] MEDS ORDERED: LORazepam 2 MG/ML INJ IV STA (16:50)
[2020-08-15] MEDS ORDERED: LORazepam 2 MG/ML INJ IV PRN ×2 (16:50)
[2020-08-15 17:14] LABS: Basophils # (A) 0.1 k/uL (0-0.2); Basophils % (A) 1 %; Eosinophils # (A) 0.1 k/uL (0-0.7); Eosinophils % (A) 1 %; Lymphocytes # (A) 2.4 k/uL (1.0-4.8); Lymphocytes % (A) 38 %; MCH 31.3 pg (25.0-35.0); MCHC 34.7 g/dL (31.0-37.0); MCV 90.1 fL (80.0-100.0); Monocytes # (A) 0.4 k/uL (0-1.0); Monocytes % (A) 6 %; Neutrophils # (A) 3.4 k/uL (1.3-7.7); Neutrophils % (A) 53 %; Platelet Count 265 k/uL (150-450); RBC 6.22 m/uL (4.30-5.90); RDW 14.4 % (11.5-15.5); WBC 6.4 k/uL (3.8-10.6)
[2020-08-15 17:17] LABS: HGB 19.4 gm/dL (13.0-17.5)
[2020-08-15 17:18] LABS: Appearance,Urine Clear (Clear); Bilirubin,Urine Negative (Negative); Blood,Urine Trace (Negative); Color,Urine Yellow; Glucose,Urine (UA) 4+ (Negative); Hyaline Casts,Urine 1 /lpf (0-2); Ketones,Urine 1+ (Negative); Leukocyte Esterase,Urine Negative (Negative); Mucus,Urine Rare /hpf; Nitrite,Urine Negative (Negative); PH, Urine 5.5 (5.0-8.0); Protein,Urine 1+ (Negative); RBC,Urine <1 /hpf (0-5); Specific Gravity,Urine 1.041 (1.001-1.035); Urobilinogen,Urine <2.0 mg/dL (<2.0); WBC,Urine 1 /hpf (0-5)
--- NOTE | 2020-08-15 17:26 | ED ---
General Adult HPI - General Chief complaint: Alcohol Stated complaint: alcohol withdrawal Time Seen by Provider: 08/15/20 16:20 Source: patient, RN notes reviewed Mode of arrival: ambulatory Limitations: no limitations - History of Present Illness Initial comments: 34-year-old male presents emergency Department chief complaint of alcohol abuse alcohol intoxication withdrawal symptoms. Patient states that he feels he has not drank in 8 hours having severe withdrawal symptoms. Patient states that he wants to get sober. Patient states he drinks a 1/5 and a half daily. Patient states his been shaking, vomiting no hallucinations at this time. Patient has gone through alcohol withdrawal in the past. Patient has never been to rehab. Patient has no history of pancreatitis she does complain of mild abdominal pain nausea vomiting. Denies being suicidal homicidal. - Related Data Home Medications Medication Instructions Recorded Confirmed Latanoprost/Pf [Latanoprost 0.005% 1 drop BOTH EYES HS 06/10/19 04/11/20 Eye Drop] Previous Rx's Medication Instructions Recorded Folic Acid 1 mg PO DAILY #15 tab 04/12/20 Naltrexone HCl [Revia] 50 mg PO DAILY #30 tablet 04/12/20 Thiamine [Vitamin B-1] 100 mg PO BID-W/MEALS #30 tab 04/12/20 amLODIPine [Norvasc] 5 mg PO DAILY #30 tab 04/12/20 metFORMIN HCL [Glucophage] 500 mg PO BID #60 tab 04/12/20 diazePAM [Valium] 5 mg PO Q8HR PRN 3 Days #9 tab 07/05/20 Allergies Allergy/AdvReac Type Severity Reaction Status Date / Time No Known Allergies Allergy Verified 08/15/20 16:24 Review of Systems ROS Statement: Those systems with pertinent positive or pertinent negative responses have been documented in the HPI. ROS Other: All systems not noted in ROS Statement are negative. Past Medical History Past Medical History: Diabetes Mellitus, Eye Disorder, Hypertension Additional Past Medical History / Comment(s): ETOH abuse, Hx of ETOH withdrawal, Glaucoma History of Any Multi-Drug Resistant Organisms: None Reported Past Surgical History: Ear Surgery Additional Past Surgical History / Comment(s): Bilateral myringotomy/tubes Past Anesthesia/Blood Transfusion Reactions: No Reported Reaction Past Psychological History: No Psychological Hx Reported Smoking Status: Never smoker Past Alcohol Use History: Abuse, Daily Past Drug Use History: None Reported, Marijuana - Past Family History Father Family Medical History: Diabetes Mellitus Mother Family Medical History: Vascular Disorder Additional Family Medical History / Comment(s): Mother of a brain aneurysm. General Exam Limitations: no limitations General appearance: alert, in no apparent distress Head exam: Present: atraumatic, normocephalic, normal inspection Eye exam: Present: normal appearance, PERRL, EOMI. Absent: scleral icterus, conjunctival injection, periorbital swelling ENT exam: Present: normal exam, normal oropharynx, mucous membranes moist, TM's normal bilaterally Neck exam: Present: normal inspection, full ROM. Absent: tenderness, meningismus, lymphadenopathy Respiratory exam: Present: normal lung sounds bilaterally. Absent: respiratory distress, wheezes, rales, rhonchi, stridor Cardiovascular Exam: Present: normal rhythm, tachycardia, normal heart sounds. Absent: systolic murmur, diastolic murmur, rubs, gallop, clicks GI/Abdominal exam: Present: soft, tenderness, normal bowel sounds. Absent: distended, guarding, rebound, rigid Neurological exam: Present: alert, oriented X3 Skin exam: Present: warm, dry, intact, normal color. Absent: rash Course Vital Signs 08/15/20 08/15/20 16:20 17:56 Temperature 98.5 F Pulse Rate 156 H 117 H Respiratory 20 18 Rate Blood Pressure 163/107 153/91 O2 Sat by Pulse 94 L 96 Oximetry EKG Findings - EKG Comments: EKG Findings:: EKG performed at 17:59, sinus rhythm rate of 99 FL 150 QRS 88 QT/QTC 332/426 - EKG Results: EKG: interpreted by MOISES Medical Decision Making - Medical Decision Making 34-year-old male presented for alcohol withdraw, hyperglycemia. Patient's found to be an alcoholic ketoacidosis, hyperglycemia, gap 23. Patient is given 3 L bolus we kept on maintenance fluids. Patient was started on Ativan protocol with CIWA. Patient's lactic acid related to hyperglycemia and alcohol abuse. Patient has no overt signs of infection. Patient is heme concentrated with he moglobin 19. - Lab Data Result diagrams: 08/15/20 16:54 08/15/20 16:54 Lab Results 08/15/20 08/15/20 08/15/20 Range/Units 16:54 16:54 16:54 WBC 6.4 (3.8-10.6) k/uL RBC 6.22 H (4.30-5.90) m/uL Hgb 19.4 H* (13.0-17.5) gm/dL Hct 56.0 H (39.0-53.0) % MCV 90.1 (80.0-100.0) fL MCH 31.3 (25.0-35.0) pg MCHC 34.7 (31.0-37.0) g/dL RDW 14.4 (11.5-15.5) % Plt Count 265 (150-450) k/uL MPV 8.0 Neutrophils % 53 % Lymphocytes % 38 % Monocytes % 6 % Eosinophils % 1 % Basophils % 1 % Neutrophils # 3.4 (1.3-7.7) k/uL Lymphocytes # 2.4 (1.0-4.8) k/uL Monocytes # 0.4 (0-1.0) k/uL Eosinophils # 0.1 (0-0.7) k/uL Basophils # 0.1 (0-0.2) k/uL Sodium 142 (137-145) mmol/L Potassium 3.7 (3.5-5.1) mmol/L Chloride 99 (98-107) mmol/L Carbon Dioxide 20 L (22-30) mmol/L Anion Gap 23 mmol/L BUN 7 L (9-20) mg/dL Creatinine 0.80 (0.66-1.25) mg/dL Est GFR (CKD-EPI)AfAm >90 (>60 ml/min/1.73 sqM) Est GFR (CKD-EPI)NonAf >90 (>60 ml/min/1.73 sqM) Glucose 353 H (74-99) mg/dL Plasma Lactic Acid Myron (0.7-2.0) mmol/L Calcium 9.3 (8.4-10.2) mg/dL Magnesium 2.1 (1.6-2.3) mg/dL Total Bilirubin 0.8 (0.2-1.3) mg/dL AST 53 (17-59) U/L ALT 44 (4-49) U/L Alkaline Phosphatase 128 H (38-126) U/L Total Protein 8.9 H (6.3-8.2) g/dL Albumin 5.3 H (3.5-5.0) g/dL Lipase 215 (23-300) U/L Urine Color Yellow Urine Appearance Clear (Clear) Urine pH 5.5 (5.0-8.0) Ur Specific [place] 1.041 H (1.001-1.035) Urine Protein 1+ H (Negative) Urine Glucose (UA) 4+ H (Negative) Urine Ketones 1+ H (Negative) Urine Blood Trace H (Negative) Urine Nitrite Negative (Negative) Urine Bilirubin Negative (Negative) Urine Urobilinogen <2.0 (<2.0) mg/dL Ur Leukocyte Esterase Negative (Negative) Urine RBC <1 (0-5) /hpf Urine WBC 1 (0-5) /hpf Hyaline Casts 1 (0-2) /lpf Urine Mucus Rare H (None) /hpf Serum Alcohol 341 H* mg/dL Acetone, Qual (Negative) 08/15/20 08/15/20 Range/Units 18:02 18:02 WBC (3.8-10.6) k/uL RBC (4.30-5.90) m/uL Hgb (13.0-17.5) gm/dL Hct (39.0-53.0) % MCV (80.0-100.0) fL MCH (25.0-35.0) pg MCHC (31.0-37.0) g/dL RDW (11.5-15.5) % Plt Count (150-450) k/uL MPV Neutrophils % % Lymphocytes % % Monocytes % % Eosinophils % % Basophils % % Neutrophils # (1.3-7.7) k/uL Lymphocytes # (1.0-4.8) k/uL Monocytes # (0-1.0) k/uL Eosinophils # (0-0.7) k/uL Basophils # (0-0.2) k/uL Sodium (137-145) mmol/L Potassium (3.5-5.1) mmol/L Chloride (98-107) mmol/L Carbon Dioxide (22-30) mmol/L Anion Gap mmol/L BUN (9-20) mg/dL Creatinine (0.66-1.25) mg/dL Est GFR (CKD-EPI)AfAm (>60 ml/min/1.73 sqM) Est GFR (CKD-EPI)NonAf (>60 ml/min/1.73 sqM) Glucose (74-99) mg/dL Plasma Lactic Acid Myron 4.9 H* (0.7-2.0) mmol/L Calcium (8.4-10.2) mg/dL Magnesium (1.6-2.3) mg/dL Total Bilirubin (0.2-1.3) mg/dL AST (17-59) U/L ALT (4-49) U/L Alkaline Phosphatase (38-126) U/L Total Protein (6.3-8.2) g/dL Albumin (3.5-5.0) g/dL Lipase (23-300) U/L Urine Color Urine Appearance (Clear) Urine pH (5.0-8.0) Ur Specific [place] (1.001-1.035) Urine Protein (Negative) Urine Glucose (UA) (Negative) Urine Ketones (Negative) Urine Blood (Negative) Urine Nitrite (Negative) Urine Bilirubin (Negative) Urine Urobilinogen (<2.0) mg/dL Ur Leukocyte Esterase (Negative) Urine RBC (0-5) /hpf Urine WBC (0-5) /hpf Hyaline Casts (0-2) /lpf Urine Mucus (None) /hpf Serum Alcohol mg/dL Acetone, Qual Negative (Negative) Disposition Clinical Impression: Alcoholic intoxication, Alcohol withdrawal, Alcoholic ketoacidosis, Hyperglycemia Disposition: [facility] Condition: Serious Referrals: Chai Leon [Primary Care Provider] - 1-2 days
[2020-08-15 17:30] LABS: ALT 44 U/L (4-49); AST 53 U/L (17-59); African American GFR (CKD) >90 (>60 ml/min/1.73 sqM); Albumin 5.3 g/dL (3.5-5.0); Alkaline Phosphatase 128 U/L (38-126); Anion Gap 23 mmol/L; Blood Urea Nitrogen 7 mg/dL (9-20); Calcium 9.3 mg/dL (8.4-10.2); Carbon Dioxide 20 mmol/L (22-30); Chloride 99 mmol/L (98-107); Glucose 353 mg/dL (74-99); Lipase 215 U/L (23-300); Magnesium 2.1 mg/dL (1.6-2.3); Non-African American GFR(CKD) >90 (>60 ml/min/1.73 sqM); Potassium 3.7 mmol/L (3.5-5.1); Sodium 142 mmol/L (137-145); Total Bilirubin 0.8 mg/dL (0.2-1.3); Total Protein 8.9 g/dL (6.3-8.2)
[2020-08-15 17:41] LABS: Alcohol 341 mg/dL
[2020-08-15] MEDS: LORazepam 2 MG/ML INJ IV PRN ×3 (18:24→21:39)
[2020-08-15] MEDS ORDERED: SODIUM CHLORIDE 0.9% 1,000 ML IV ONE (18:32)
[2020-08-15] MEDS: THIAMINE 100 MG TAB PO SCH (18:51)
[2020-08-15] MEDS ORDERED: ONDANSETRON 4 MG/2 ML VIAL IVP PRN (18:54)
[2020-08-15] MEDS ORDERED: NALOXONE 0.4 MG/ML 1 ML VIAL IV PRN (18:54)
[2020-08-15] MEDS: SODIUM CHLORIDE 0.9% 1,000 ML IV SCH (20:08)
[2020-08-15] MEDS: INSULIN ASPART (NovoLOG) 100 UNIT/ML VIAL SQ SCH (21:47)
[2020-08-15 21:48] LABS: Glucose,Whole Blood 190 mg/dL (75-99)
--- NOTE | 2020-08-15 21:48 | P.HPIM ---
History of Present Illness H&P Date: 08/15/20 Patient is a 34-year-old male with a PMH of EtOH abuse, type II DM, EtOH abuse, and hypertension who presented to the emergency room with alcohol intoxication and impending withdrawal. The patient notes that he decided to quit drinking earlier today with his last drink roughly 8 hours prior to presentation. He admits to drinking 1.5 fifths of hard liquor daily for the past decade. Reports that for the past few hours he has had nausea with multiple episodes of vomiting nonbloody nonbilious. He reports feeling shaky. Reports no history of alcohol withdrawal seizures. Denied admission to medical ICU or requiring Ativan infusion. Reports a history of single episode of hallucination when withdrawing from alcohol. Denied chest pain, shortness of breath, fever, chills, cough, abdominal pain, diarrhea, or dizziness. In the emergency room, EKG showed normal sinus rhythm at 99 bpm with T-wave inversions in leads V1 to V2 as reviewed by me. Laboratory evaluation was remarkable for hemoglobin of 19.4, CO2 20, glucose 353, lactic acid 4.9, alk phos 128, and serum alcohol level 341 Review of Systems Pertinent positives and negatives as discussed in HPI, a complete review of systems was performed and all other systems are negative. Past Medical History Past Medical History: Diabetes Mellitus, Eye Disorder, Hypertension Additional Past Medical History / Comment(s): ETOH abuse, Hx of ETOH withdrawal, Glaucoma History of Any Multi-Drug Resistant Organisms: None Reported Past Surgical History: Ear Surgery Additional Past Surgical History / Comment(s): Bilateral myringotomy/tubes Past Anesthesia/Blood Transfusion Reactions: No Reported Reaction Past Psychological History: No Psychological Hx Reported Smoking Status: Never smoker Past Alcohol Use History: Abuse, Daily Past Drug Use History: None Reported, Marijuana - Past Family History Father Family Medical History: Diabetes Mellitus Mother Family Medical History: Vascular Disorder Additional Family Medical History / Comment(s): Mother of a brain aneurysm. Medications and Allergies Home Medications Medication Instructions Recorded Confirmed Type Latanoprost/Pf [Latanoprost 0.005% 1 drop BOTH EYES HS 06/10/19 08/15/20 History Eye Drop] Naltrexone HCl [Revia] 50 mg PO DAILY #30 tablet 04/12/20 08/15/20 Rx amLODIPine [Norvasc] 10 mg PO DAILY 08/15/20 08/15/20 History lisinopriL [Zestril] 5 mg PO DAILY 08/15/20 08/15/20 History metFORMIN HCL 1,000 mg PO BID 08/15/20 08/15/20 History Allergies Allergy/AdvReac Type Severity Reaction Status Date / Time No Known Allergies Allergy Verified 08/15/20 19:01 Physical Exam Vitals: Vital Signs Temp Pulse Resp BP Pulse Ox 08/15/20 20:00 101 H 18 144/86 96 08/15/20 19:00 105 H 18 141/95 96 08/15/20 18:00 118 H 18 143/102 96 08/15/20 17:56 117 H 18 153/91 96 08/15/20 16:20 98.5 F 156 H 20 163/107 94 L Intake and Output 08/15/20 08/15/20 08/15/20 06:59 14:59 22:59 Other: Weight 99.79 kg General: Disheveled male, no distress, appears at stated age, obese Derm: no unusual rashes/lesions no unusual ecchymoses, warm, dry Head: atraumatic, normocephalic, symmetric Eyes: EOMI, no lid lag, anicteric sclera, pupils equal round reactive to light ENT: Nose and ears atraumatic, no thrush, no pharyngeal erythema Neck: No thyromegaly, no cervical lymphadenopathy, trachea midline, supple Mouth: no lip lesion, mucus membranes dry, poor dentition Cardiovascular: S1S2 reg, no murmur, positive posterior tibial pulse bilateral, no edema, capillary refill less than 2 seconds Lungs: CTA bilateral, no rhonchi, no rales , no accessory muscle use Abdominal: soft, nontender to palpation, no guarding, no appreciable organomegaly, normal bowel sounds Ext: no gross muscle atrophy, muscle strength 5 out of 5 in all 4 extremities grossly, no contractures, Neuro: CN II-XI grossly intact, light touch intact all 4 extremities, finger to nose within normal limits, Psych: Alert, oriented, appropriate affect Results CBC & Chem 7: 08/15/20 16:54 08/15/20 16:54 Labs: Abnormal Lab Results - Last 24 Hours (Table) 08/15/20 08/15/20 08/15/20 Range/Units 16:54 16:54 16:54 RBC 6.22 H (4.30-5.90) m/uL Hgb 19.4 H* (13.0-17.5) gm/dL Hct 56.0 H (39.0-53.0) % Carbon Dioxide 20 L (22-30) mmol/L BUN 7 L (9-20) mg/dL Glucose 353 H (74-99) mg/dL Plasma Lactic Acid Myron (0.7-2.0) mmol/L Alkaline Phosphatase 128 H (38-126) U/L Total Protein 8.9 H (6.3-8.2) g/dL Albumin 5.3 H (3.5-5.0) g/dL Ur Specific [place] 1.041 H (1.001-1.035) Urine Protein 1+ H (Negative) Urine Glucose (UA) 4+ H (Negative) Urine Ketones 1+ H (Negative) Urine Blood Trace H (Negative) Urine Mucus Rare H (None) /hpf Serum Alcohol 341 H* mg/dL 08/15/20 Range/Units 18:02 RBC (4.30-5.90) m/uL Hgb (13.0-17.5) gm/dL Hct (39.0-53.0) % Carbon Dioxide (22-30) mmol/L BUN (9-20) mg/dL Glucose (74-99) mg/dL Plasma Lactic Acid Myron 4.9 H* (0.7-2.0) mmol/L Alkaline Phosphatase (38-126) U/L Total Protein (6.3-8.2) g/dL Albumin (3.5-5.0) g/dL Ur Specific [place] (1.001-1.035) Urine Protein (Negative) Urine Glucose (UA) (Negative) Urine Ketones (Negative) Urine Blood (Negative) Urine Mucus (None) /hpf Serum Alcohol mg/dL Assessment and Plan Plan: EtOH abuse, impending withdrawal -[facility] protocol -Thiamine, multivitamin -Fall precautions -IV fluids -Protonix -Antiemetics for nausea Lactic acidosis -Continue with IV fluids -Monitor to resolution Polycythemia -Suspected secondary to dehydration - if does not improve, patient may need workup for polycythemia vera with a hematology consult Chronic conditions: Hypertension, Type II DM -Check A1c -Lispro insulin sliding scale with blood glucose monitoring -Continue home medications DVT prophylaxis -Heparin subq The patient is admitted with an anticipated greater than 2 midnight stay for evaluation of EtOH abuse CODE STATUS: Full Code Discussed with: patient Anticipated discharge date: 2-[address]: Home A total of 35 minutes was spent on the care of this complex patient more than 50% of the time was spent in counseling and care coordination.
[2020-08-16] MEDS: HEPARIN SODIUM,PORCINE 5,000 UNIT/ML 1 ML VIAL SQ SCH ×3 (00:32→17:09)
[2020-08-16] MEDS: LORazepam 2 MG/ML INJ IV PRN ×3 (00:33→05:06)
[2020-08-16] MEDS ORDERED: SODIUM CHLORIDE 0.9% 1,000 ML IV ONE (01:47)
[2020-08-16 04:47] LABS: HCT 43.8 % (39.0-53.0); MCH 31.8 pg (25.0-35.0); MCHC 35.2 g/dL (31.0-37.0); MCV 90.2 fL (80.0-100.0); Mean Platelet Volume 8.3; Platelet Count 160 k/uL (150-450); RBC 4.85 m/uL (4.30-5.90); RDW 14.5 % (11.5-15.5); WBC 8.4 k/uL (3.8-10.6)
[2020-08-16 04:53] LABS: HGB 15.4 gm/dL (13.0-17.5)
[2020-08-16 05:12] LABS: African American GFR (CKD) >90 (>60 ml/min/1.73 sqM); Anion Gap 9 mmol/L; Blood Urea Nitrogen 7 mg/dL (9-20); Calcium 7.8 mg/dL (8.4-10.2); Carbon Dioxide 27 mmol/L (22-30); Chloride 103 mmol/L (98-107); Glucose 183 mg/dL (74-99); Non-African American GFR(CKD) >90 (>60 ml/min/1.73 sqM); Potassium 3.6 mmol/L (3.5-5.1); Sodium 139 mmol/L (137-145)
[2020-08-16 06:10] LABS: Glucose,Whole Blood 172 mg/dL (75-99)
[2020-08-16] MEDS: INSULIN ASPART (NovoLOG) 100 UNIT/ML VIAL SQ SCH ×3 (06:36→17:10)
[2020-08-16] MEDS: THIAMINE 100 MG TAB PO SCH ×2 (06:37→17:10)
[2020-08-16] MEDS: SODIUM CHLORIDE 0.9% 1,000 ML IV SCH (09:00)
[2020-08-16] MEDS ORDERED: lisinopriL 10 MG TAB PO SCH (09:00)
[2020-08-16] MEDS ORDERED: PANTOPRAZOLE 40 MG/10 ML VIAL IV SCH (09:00)
[2020-08-16] MEDS ORDERED: amLODIPine 5 MG TAB PO SCH (09:00)
[2020-08-16 11:48] LABS: Glucose,Whole Blood 189 mg/dL (75-99)
[2020-08-16 16:12] LABS: Hemoglobin A1C 6.8 % (4.0-6.0)
--- NOTE | 2020-08-16 16:51 | P.PN ---
<Jarret Max - Last Filed: 08/16/20 16:31> Subjective Progress Note Date: 08/16/20 Principal diagnosis: Alcohol withdrawal Hospital course: Patient is a 34-year-old male with a past medical history hypertension, dmo-osbxqxs-jugjaartj diabetes mellitus type 2, alcohol abuse drinking a reported 1.5 fifths of alcohol daily for the past 15 years. He was admitted to the hospital with alcohol intoxication, alcoholic ketoacidosis and impending withdrawal. He had an EKG completed which revealed normal sinus rhythm at 99 bpm. Patient's EtOH level upon admission was 341. Initial lactate 5.6 and has been trending down consistently with most recent lactate of 2.3. Patient has had a total of 3 L normal saline followed by maintenance infusion. CBC and BMP showing no acute abnormalities. Liver profile revealing an elevated alkaline phosphatase of 128. Patient currently on naltrexone for assistance with alcohol cessation. Patient has had a total of 8 mg of Ativan since admission yesterday evening. Physical exam: Patient was seen and fully evaluated at the bedside this morning. He reported feeling slightly nauseous and anxious, but states he otherwise feels well. He denies having any headache, lightheadedness, dizziness, changes in vision or hearing, chest pain or palpitations, shortness of breath, abdominal pain, vomiting, or experiencing any numbness/tingling/weakness in extremities. General: non toxic, no distress, appears at stated age Derm: warm, dry Head: atraumatic, normocephalic, symmetric Eyes: EOMI, no lid lag, anicteric sclera Mouth: no lip lesion, mucus membranes moist Cardiovascular: S1S2 reg, no murmur, positive posterior tibial pulses bilaterally, Refill less than 2 seconds. Lungs: CTA bilaterally, no rhonchi, no rales, no wheezing, and no accessory muscle use Abdominal: soft, nontender to palpation, no guarding, no appreciable organomegaly Ext: no gross muscle atrophy, no edema, no contractures Neuro: GCS 15. Speech clear. CN II-XI grossly intact, no focal neuro deficits Psych: Alert, oriented, appropriate affect Plan of care: EtOH withdrawal with alcohol ketoacidosis -EtOH upon arrival 341. Initial lactate 5.6 and has been trending down consistently with most recent lactate of 2.3. -Patient has received a total of 8 mg of Ativan since arriving to facility yesterday evening. -JHON precautions in place with symptom triggered medication management. -Fall precautions, aspiration precautions, and seizure precautions in place. -Patient counseled on importance of abstaining from alcohol and risks of continued abuse. -Thiamine twice daily -Continue fluid hydration. Hypertension -Monitor vital signs and continue to improve and amlodipine and lisinopril. [id number] Diabetes mellitus type 2 -Hold Glucophage secondary to acidosis. -Patient placed on glycemic protocol with NovoLog sliding scale. CODE STATUS: Full code DVT prophylaxis: Heparin Discussed with: Patient and RN Anticipated discharge date: 1-[address]: [facility] versus [facility] [place]. A total of 45 minutes was spent on the care of this complex patient more than 50% of the time was spent in counseling and care coordination. Objective - Vital Signs Vital signs: Vital Signs Temp 98.5 F 08/16/20 08:00 Pulse 74 08/16/20 08:00 Resp 18 08/16/20 08:00 BP 154/88 08/16/20 08:00 Pulse Ox 96 08/16/20 08:00 Intake & Output 08/15/20 08/16/20 08/16/20 18:59 06:59 18:59 Intake Total 300 Output Total 0 Balance 0 300 Weight 99.79 kg 99.5 kg Intake: Oral 300 Output: Urine 0 Other: Voiding Method Toilet - Labs CBC & Chem 7: 08/16/20 04:19 08/16/20 04:19 Labs: Abnormal Lab Results - Last 24 Hours (Table) 08/15/20 08/15/20 08/15/20 Range/Units 16:54 16:54 16:54 RBC 6.22 H (4.30-5.90) m/uL Hgb 19.4 H* (13.0-17.5) gm/dL Hct 56.0 H (39.0-53.0) % Carbon Dioxide 20 L (22-30) mmol/L BUN 7 L (9-20) mg/dL Creatinine (0.66-1.25) mg/dL Glucose 353 H (74-99) mg/dL POC Glucose (mg/dL) (75-99) mg/dL Plasma Lactic Acid Myron (0.7-2.0) mmol/L Calcium (8.4-10.2) mg/dL Alkaline Phosphatase 128 H (38-126) U/L Total Protein 8.9 H (6.3-8.2) g/dL Albumin 5.3 H (3.5-5.0) g/dL Ur Specific [place] 1.041 H (1.001-1.035) Urine Protein 1+ H (Negative) Urine Glucose (UA) 4+ H (Negative) Urine Ketones 1+ H (Negative) Urine Blood Trace H (Negative) Urine Mucus Rare H (None) /hpf Serum Alcohol 341 H* mg/dL 08/15/20 08/15/20 08/15/20 Range/Units 18:02 21:26 21:46 RBC (4.30-5.90) m/uL Hgb (13.0-17.5) gm/dL Hct (39.0-53.0) % Carbon Dioxide (22-30) mmol/L BUN (9-20) mg/dL Creatinine (0.66-1.25) mg/dL Glucose (74-99) mg/dL POC Glucose (mg/dL) 190 H (75-99) mg/dL Plasma Lactic Acid Myron 4.9 H* 5.1 H* (0.7-2.0) mmol/L Calcium (8.4-10.2) mg/dL Alkaline Phosphatase (38-126) U/L Total Protein (6.3-8.2) g/dL Albumin (3.5-5.0) g/dL Ur Specific [place] (1.001-1.035) Urine Protein (Negative) Urine Glucose (UA) (Negative) Urine Ketones (Negative) Urine Blood (Negative) Urine Mucus (None) /hpf Serum Alcohol mg/dL 08/16/20 08/16/20 08/16/20 Range/Units 01:01 04:19 04:19 RBC (4.30-5.90) m/uL Hgb (13.0-17.5) gm/dL Hct (39.0-53.0) % Carbon Dioxide (22-30) mmol/L BUN 7 L (9-20) mg/dL Creatinine 0.57 L (0.66-1.25) mg/dL Glucose 183 H (74-99) mg/dL POC Glucose (mg/dL) (75-99) mg/dL Plasma Lactic Acid Myron 5.6 H* 2.8 H* (0.7-2.0) mmol/L Calcium 7.8 L (8.4-10.2) mg/dL Alkaline Phosphatase (38-126) U/L Total Protein (6.3-8.2) g/dL Albumin (3.5-5.0) g/dL Ur Specific [place] (1.001-1.035) Urine Protein (Negative) Urine Glucose (UA) (Negative) Urine Ketones (Negative) Urine Blood (Negative) Urine Mucus (None) /hpf Serum Alcohol mg/dL 08/16/20 08/16/20 Range/Units 05:50 07:32 RBC (4.30-5.90) m/uL Hgb (13.0-17.5) gm/dL Hct (39.0-53.0) % Carbon Dioxide (22-30) mmol/L BUN (9-20) mg/dL Creatinine (0.66-1.25) mg/dL Glucose (74-99) mg/dL POC Glucose (mg/dL) 172 H (75-99) mg/dL Plasma Lactic Acid Myron 3.0 H* (0.7-2.0) mmol/L Calcium (8.4-10.2) mg/dL Alkaline Phosphatase (38-126) U/L Total Protein (6.3-8.2) g/dL Albumin (3.5-5.0) g/dL Ur Specific [place] (1.001-1.035) Urine Protein (Negative) Urine Glucose (UA) (Negative) Urine Ketones (Negative) Urine Blood (Negative) Urine Mucus (None) /hpf Serum Alcohol mg/dL <Janell Rankin - Last Filed: 08/17/20 06:22> Objective - Vital Signs Vital signs: Vital Signs Temp 97.8 F 08/16/20 16:00 Pulse 77 08/16/20 16:00 Resp 18 08/16/20 16:00 BP 166/91 08/16/20 16:00 Pulse Ox 94 L 08/16/20 16:00 Intake & Output 08/16/20 08/16/20 08/17/20 06:59 18:59 06:59 Intake Total 944 Output Total 0 Balance 0 944 Weight 99.5 kg Intake: Oral 944 Output: Urine 0 Other: Voiding Method Toilet - Labs CBC & Chem 7: 08/16/20 04:19 08/16/20 04:19 Labs: Abnormal Lab Results - Last 24 Hours (Table) 08/16/20 08/16/20 08/16/20 Range/Units 04:19 07:32 11:00 POC Glucose (mg/dL) (75-99) mg/dL Hemoglobin A1c 6.8 H (4.0-6.0) % Plasma Lactic Acid Myron 3.0 H* 2.4 H* (0.7-2.0) mmol/L 08/16/20 08/16/20 08/16/20 Range/Units 11:44 14:02 16:55 POC Glucose (mg/dL) 189 H 172 H (75-99) mg/dL Hemoglobin A1c (4.0-6.0) % Plasma Lactic Acid Myron 2.3 H* (0.7-2.0) mmol/L 08/16/20 Range/Units 19:44 POC Glucose (mg/dL) 143 H (75-99) mg/dL Hemoglobin A1c (4.0-6.0) % Plasma Lactic Acid Myron (0.7-2.0) mmol/L Assessment and Plan Assessment: Patient seen and examined independently. Patient was also seen by Jarret Max NP and case was discussed. I am in agreement with subjective, physical exam, assessment and plan as written above and amended below. Patient seen and examined at bedside on 08/16 at approximately 11 AM. He reports that he has been trying to stop drinking. He feels as though the naltrexone to help him decrease drinking. He has not done support groups, AAA, or [place]. We discussed the importance of these adjunctive therapies to be successful and alcohol cessation. He does state he would be willing to try these. We'll have social work follow-up with patient. General: non toxic, no distress, appears at stated age Derm: warm, dry Head: atraumatic, normocephalic, symmetric Eyes: EOMI, no lid lag, anicteric sclera Mouth: no lip lesion, mucus membranes moist Cardiovascular: S1S2 reg, no murmur, positive posterior tibial pulse bilateral, Lungs: CTA bilateral, no rhonchi, no rales , no accessory muscle use Psych: Alert, oriented, appropriate affect
[2020-08-16 17:00] LABS: Glucose,Whole Blood 172 mg/dL (75-99)
[2020-08-16 17:41] VITALS: BP 166/91; PULSE 77; RESP 18; TEMP 97.8
[2020-08-16 19:47] LABS: Glucose,Whole Blood 143 mg/dL (75-99)
[2020-08-16] MEDS ORDERED: LATANOPROST 0.005% OPHTH DROPS 2.5 ML BTL BOTH EYES SCH (21:00)
--- NOTE | 2020-08-19 07:41 | P.DS ---
<Jarret Max - Last Filed: 08/19/20 07:26> Providers Expected date of discharge: 08/16/20 Hospital Course: PATIENT LEFT AMA THIS IS A SUMMARY OF CARE Discharge Diagnosis: EtOH withdrawal with alcoholic ketoacidosis Hypertension Bbu-vntlveu-yaxycuhza diabetes mellitus type 2 Hospital Course: Patient is a 34-year-old male with a past medical history hypertension, gos-qfybovs-oortjvrps diabetes mellitus type 2, alcohol abuse drinking a reported 1.5 fifths of alcohol daily for the past 15 years. He was admitted to the hospital with alcohol intoxication, alcoholic ketoacidosis and impending withdrawal. He had an EKG completed which revealed normal sinus rhythm at 99 bpm. Patient's EtOH level upon admission was 341. Initial lactate 5.6 and has been trending down consistently and trended down to 2.3 after receiving a total of 3 L normal saline followed by maintenance infusion. His CBC and BMP showed no acute abnormalities. Liver profile revealed an elevated alkaline phosphatase of 128. Patient has also been on naltrexone for assistance with his alcohol cessation. On the evening of 08/16/20 pt left AGAINST MEDICAL ADVICE. Per documentation in chart, pt was evaluated by RN and determined to be competent prior to completing AMA paperwork and leaving facility. RN then notified on-call physician that pt had left at that time. Plan - Discharge Summary New Discharge Prescriptions: No Action Latanoprost/Pf [Latanoprost 0.005% Eye Drop] 1 drop BOTH EYES HS Naltrexone HCl [Revia] 50 mg PO DAILY #30 tablet metFORMIN HCL 1,000 mg PO BID lisinopriL [Zestril] 5 mg PO DAILY amLODIPine [Norvasc] 10 mg PO DAILY Discharge Medication List Latanoprost/Pf [Latanoprost 0.005% Eye Drop] 1 drop BOTH EYES HS 06/10/19 [History] Naltrexone HCl [Revia] 50 mg PO DAILY #30 tablet 04/12/20 [Rx] amLODIPine [Norvasc] 10 mg PO DAILY 08/15/20 [History] lisinopriL [Zestril] 5 mg PO DAILY 08/15/20 [History] metFORMIN HCL 1,000 mg PO BID 08/15/20 [History] Follow up Appointment(s)/Referral(s): Chai Leon [Primary Care Provider] - 1-2 days Discharge Disposition: Left Against Medical Advice <Janell Rankin - Last Filed: 08/19/20 16:59> Providers Date of admission: 08/15/20 19:50 Attending physician: Janell Rankin DO Primary care physician: Chai Leon [facility] Course: Patient left AGAINST MEDICAL ADVICE.
== END 2020-08-16 19:55 | disposition left against medical advice (07) | DRG 894 ==
LOC: EC 16:12 → 5NMEDONC 19:50 → 3SCARD 20:17
PROVIDERS: ADMIT Internal Medicine; ATTEND Internal Medicine
DX: F10.139 Alcohol abuse with withdrawal, unspecified (principal); E87.2 Acidosis; E11.9 Type 2 diabetes mellitus without complications; I10 Essential (primary) hypertension; F10.129 Alcohol abuse with intoxication, unspecified; D75.1 Secondary polycythemia; E86.0 Dehydration; Y90.8 Blood alcohol level of 240 mg/100 ml or more; Z79.899 Other long term (current) drug therapy
CPT/HCPCS: 36415; 80048; 80053; 80320; 81001; 82009; 83036; 83605; 83690; 83735; 85025; 85027; 93005

== ENCOUNTER → 2020-09-08 | Outpatient (CLI) | payer OTHER | END | disposition home or self-care (01) | LOC: LABWHC1 17:23 | PROVIDERS: ATTEND Family Medicine | DX: Z20.822 Contact with and (suspected) exposure to COVID-19 (principal) | CPT/HCPCS: U0003; C9803 ==

== ENCOUNTER 2020-09-29 19:39 | Inpatient (IN) | payer OTHER ==
[2020-09-29] MEDS ORDERED: LORazepam 2 MG/ML INJ IV STA (20:00)
[2020-09-29] MEDS ORDERED: ONDANSETRON 4 MG/2 ML VIAL IVP STA (20:01)
[2020-09-29] MEDS ORDERED: THIAMINE 100 MG/ML 2 ML VIAL IVP STA (20:34)
[2020-09-29] MEDS ORDERED: SODIUM CHLORIDE 0.9% 1,000 ML IV STA ×2 (20:37→23:39)
[2020-09-29 20:44] LABS: Basophils # (A) 0.1 k/uL (0-0.2); Basophils % (A) 1 %; Eosinophils % (A) 0 %; HCT 50.5 % (39.0-53.0); HGB 16.9 gm/dL (13.0-17.5); Lymphocytes % (A) 10 %; MCH 30.9 pg (25.0-35.0); MCHC 33.4 g/dL (31.0-37.0); MCV 92.6 fL (80.0-100.0); Mean Platelet Volume 7.8; Monocytes # (A) 0.3 k/uL (0-1.0); Monocytes % (A) 3 %; Neutrophils # (A) 8.7 k/uL (1.3-7.7); Neutrophils % (A) 85 %; Poikilocytosis Slight; RBC 5.46 m/uL (4.30-5.90); RDW 15.1 % (11.5-15.5); WBC 10.2 k/uL (3.8-10.6)
--- NOTE | 2020-09-29 20:48 | ED ---
General Adult HPI - General Chief complaint: Nausea/Vomiting/Diarrhea Stated complaint: Alcohol Withdrawal Time Seen by Provider: 09/29/20 19:57 Source: patient Mode of arrival: ambulatory Limitations: no limitations - History of Present Illness Initial comments: 35-year-old male presents to emergency with a chief complaint alcohol intoxication. Patient reports history of alcohol abuse and typically drinks 1.5 fifths of vodka daily. Patient reports he is attempting to go to rehab at the moment. Patient reports last time his strength was at noon and now he is having hand tremors, diaphoresis, nausea with multiple episodes of nonbilious and nonbl oody vomiting. Patient reports is currently going through alcohol withdrawal. He has been through this before but does not have a history of seizures. She denies any abdominal pain or diarrhea. He denies any homicidal, suicidal thoughts or ideations at this time. - Related Data Home Medications Medication Instructions Recorded Confirmed Latanoprost/Pf [Latanoprost 0.005% 1 drop BOTH EYES HS 06/10/19 09/29/20 Eye Drop] amLODIPine [Norvasc] 10 mg PO DAILY 08/15/20 09/29/20 lisinopriL [Zestril] 5 mg PO DAILY 08/15/20 09/29/20 metFORMIN HCL 1,000 mg PO BID 08/15/20 09/29/20 Previous Rx's Medication Instructions Recorded Naltrexone HCl [Revia] 50 mg PO DAILY #30 tablet 04/12/20 LORazepam [Ativan] 1 mg PO HS 3 Days #3 tab 09/30/20 Ondansetron Odt [Zofran Odt] 4 mg PO Q8HR PRN #10 tab 09/30/20 Allergies Allergy/AdvReac Type Severity Reaction Status Date / Time No Known Allergies Allergy Verified 09/29/20 19:48 Review of Systems ROS Statement: Those systems with pertinent positive or pertinent negative responses have been documented in the HPI. ROS Other: All systems not noted in ROS Statement are negative. Past Medical History Past Medical History: Diabetes Mellitus, Eye Disorder, Hypertension Additional Past Medical History / Comment(s): ETOH abuse, Hx of ETOH withdrawal, Glaucoma, covid 09/2020. History of Any Multi-Drug Resistant Organisms: None Reported Past Surgical History: Ear Surgery Additional Past Surgical History / Comment(s): Bilateral myringotomy/tubes, Past Anesthesia/Blood Transfusion Reactions: No Reported Reaction Past Psychological History: No Psychological Hx Reported Smoking Status: Never smoker Past Alcohol Use History: Abuse, Daily Past Drug Use History: Marijuana - Past Family History Father Family Medical History: Diabetes Mellitus Mother Family Medical History: Vascular Disorder Additional Family Medical History / Comment(s): Mother of a brain aneurysm. General Exam Limitations: no limitations General appearance: alert, in no apparent distress, anxious Head exam: Present: atraumatic, normocephalic, normal inspection Eye exam: Present: normal appearance, PERRL, EOMI Pupils: Present: normal accommodation ENT exam: Present: normal exam, normal oropharynx, mucous membranes moist, TM's normal bilaterally, normal external ear exam Neck exam: Present: normal inspection, full ROM. Absent: tenderness, lymphadenopathy Respiratory exam: Present: normal lung sounds bilaterally. Absent: respiratory distress Cardiovascular Exam: Present: normal rhythm, tachycardia, normal heart sounds. Absent: systolic murmur GI/Abdominal exam: Present: soft. Absent: distended, tenderness, guarding, rebound Extremities exam: Present: normal inspection, full ROM, normal capillary refill. Absent: tenderness, pedal edema, joint swelling Back exam: Present: normal inspection, full ROM. Absent: tenderness, CVA tenderness (R), CVA tenderness (L) Neurological exam: Present: alert, oriented X3 Psychiatric exam: Present: normal affect, normal mood, anxious Skin exam: Present: warm, dry, intact, normal color Course Vital Signs 09/29/20 09/29/20 09/30/20 19:43 21:30 00:07 Temperature 97.5 F L Pulse Rate 148 H 114 H 115 H Respiratory 18 16 16 Rate Blood Pressure 113/71 120/66 136/74 O2 Sat by Pulse 97 98 99 Oximetry 09/30/20 03:02 Temperature Pulse Rate 128 H Respiratory 19 Rate Blood Pressure 127/91 O2 Sat by Pulse 98 Oximetry Medical Decision Making - Medical Decision Making 35-year-old male with history of alcohol abuse presents to emergency department with a chief complaint alcohol intoxication. On physical examination, patient is diaphoretic and tremulous. He is also very anxious when talking. CIWA assess the patient was started on Ativan. CBC is unremarkable. Patient is slightly acidotic with a pH of 7.30. Bicarb 18. Anion gap of 34. BUN 3. Acetone +. Serum alcohol Slight elevation in AST with a secondary to alcohol ism. Blood glucose 282. Urine shows glucosuria with +1 ketones. Patient was given 3L of IV fluids, Ativan, thiamine and 7 units of regular insuline. Alcoholic ketoacidosis versus DKA. Patient will be admitted for further medical management. Case discussed with Admitting is Dr Hdez. - Lab Data Result diagrams: 09/29/20 19:59 09/30/20 00:57 Lab Results 09/29/20 09/29/20 09/29/20 Range/Units 19:59 19:59 21:48 WBC 10.2 (3.8-10.6) k/uL RBC 5.46 (4.30-5.90) m/uL Hgb 16.9 (13.0-17.5) gm/dL Hct 50.5 (39.0-53.0) % MCV 92.6 (80.0-100.0) fL MCH 30.9 (25.0-35.0) pg MCHC 33.4 (31.0-37.0) g/dL RDW 15.1 (11.5-15.5) % Plt Count 463 H D (150-450) k/uL MPV 7.8 Neutrophils % 85 % Lymphocytes % 10 % Monocytes % 3 % Eosinophils % 0 % Basophils % 1 % Neutrophils # 8.7 H (1.3-7.7) k/uL Lymphocytes # 1.0 (1.0-4.8) k/uL Monocytes # 0.3 (0-1.0) k/uL Eosinophils # 0.0 (0-0.7) k/uL Basophils # 0.1 (0-0.2) k/uL Poikilocytosis Slight VBG pH (7.31-7.41) VBG pCO2 (37-51) mmHg VBG HCO3 (24-28) mmol/L Sodium 147 H (137-145) mmol/L Potassium 4.3 (3.5-5.1) mmol/L Chloride 101 (98-107) mmol/L Carbon Dioxide 12 L (22-30) mmol/L Anion Gap 34 mmol/L BUN 3 L (9-20) mg/dL Creatinine 0.88 (0.66-1.25) mg/dL Est GFR (CKD-EPI)AfAm >90 (>60 ml/min/1.73 sqM) Est GFR (CKD-EPI)NonAf >90 (>60 ml/min/1.73 sqM) Glucose 282 H (74-99) mg/dL Calcium 9.7 (8.4-10.2) mg/dL Total Bilirubin 1.0 (0.2-1.3) mg/dL AST 84 H (17-59) U/L ALT 45 (4-49) U/L Alkaline Phosphatase 152 H (38-126) U/L Total Protein 8.3 H (6.3-8.2) g/dL Albumin 5.0 (3.5-5.0) g/dL Urine Color Yellow Urine Appearance Clear (Clear) Urine pH 5.0 (5.0-8.0) Ur Specific [place] 1.011 (1.001-1.035) Urine Protein Trace H (Negative) Urine Glucose (UA) 3+ H (Negative) Urine Ketones 1+ H (Negative) Urine Blood Negative (Negative) Urine Nitrite Negative (Negative) Urine Bilirubin Negative (Negative) Urine Urobilinogen <2.0 (<2.0) mg/dL Ur Leukocyte Esterase Negative (Negative) Serum Alcohol 237 H* mg/dL Acetone, Qual (Negative) 09/29/20 09/29/20 09/30/20 Range/Units 22:26 22:26 00:57 WBC (3.8-10.6) k/uL RBC (4.30-5.90) m/uL Hgb (13.0-17.5) gm/dL Hct (39.0-53.0) % MCV (80.0-100.0) fL MCH (25.0-35.0) pg MCHC (31.0-37.0) g/dL RDW (11.5-15.5) % Plt Count (150-450) k/uL MPV Neutrophils % % Lymphocytes % % Monocytes % % Eosinophils % % Basophils % % Neutrophils # (1.3-7.7) k/uL Lymphocytes # (1.0-4.8) k/uL Monocytes # (0-1.0) k/uL Eosinophils # (0-0.7) k/uL Basophils # (0-0.2) k/uL Poikilocytosis VBG pH 7.30 L (7.31-7.41) VBG pCO2 37 (37-51) mmHg VBG HCO3 18 L (24-28) mmol/L Sodium 142 (137-145) mmol/L Potassium 4.4 (3.5-5.1) mmol/L Chloride 107 (98-107) mmol/L Carbon Dioxide 15 L (22-30) mmol/L Anion Gap 20 mmol/L BUN 2 L (9-20) mg/dL Creatinine 0.62 L (0.66-1.25) mg/dL Est GFR (CKD-EPI)AfAm >90 (>60 ml/min/1.73 sqM) Est GFR (CKD-EPI)NonAf >90 (>60 ml/min/1.73 sqM) Glucose 158 H (74-99) mg/dL Calcium 8.7 (8.4-10.2) mg/dL Total Bilirubin (0.2-1.3) mg/dL AST (17-59) U/L ALT (4-49) U/L Alkaline Phosphatase (38-126) U/L Total Protein (6.3-8.2) g/dL Albumin (3.5-5.0) g/dL Urine Color Urine Appearance (Clear) Urine pH (5.0-8.0) Ur Specific [place] (1.001-1.035) Urine Protein (Negative) Urine Glucose (UA) (Negative) Urine Ketones (Negative) Urine Blood (Negative) Urine Nitrite (Negative) Urine Bilirubin (Negative) Urine Urobilinogen (<2.0) mg/dL Ur Leukocyte Esterase (Negative) Serum Alcohol mg/dL Acetone, Qual Positive (Negative) Disposition Clinical Impression: Alcohol withdrawal, Alcoholic intoxication, Alcoholic ketoacidosis Disposition: HOME SELF-CARE Condition: Stable Instructions (If sedation given, give patient instructions): Alcohol Withdrawal (DC) Additional Instructions: Please return to the Emergency Department if symptoms worsen or any other concerns. Take prescribed medication as directed. Prescriptions: LORazepam [Ativan] 1 mg PO HS 3 Days #3 tab Ondansetron Odt [Zofran Odt] 4 mg PO Q8HR PRN #10 tab PRN Reason: Nausea Is patient prescribed a controlled substance at d/c from ED?: Yes If prescribed controlled substance>3 days was MAPS reviewed?: Prescribed <3 Days Referrals: None,Stated [Primary Care Provider] - 1-2 days Time of Disposition: 02:35
[2020-09-29 20:57] LABS: Potassium 4.3 mmol/L (3.5-5.1)
[2020-09-29 20:58] LABS: AST 84 U/L (17-59); African American GFR (CKD) >90 (>60 ml/min/1.73 sqM); Alkaline Phosphatase 152 U/L (38-126); Anion Gap 34 mmol/L; Blood Urea Nitrogen 3 mg/dL (9-20); Calcium 9.7 mg/dL (8.4-10.2); Carbon Dioxide 12 mmol/L (22-30); Chloride 101 mmol/L (98-107); Glucose 282 mg/dL (74-99); Non-African American GFR(CKD) >90 (>60 ml/min/1.73 sqM); Sodium 147 mmol/L (137-145); Total Protein 8.3 g/dL (6.3-8.2)
[2020-09-29 21:02] LABS: Platelet Count 463 k/uL (150-450)
[2020-09-29 21:04] LABS: Alcohol 237 mg/dL
[2020-09-29 21:06] LABS: ALT 45 U/L (4-49)
[2020-09-29] MEDS ORDERED: THIAMINE 100 MG/ML 2 ML VIAL IM STA (21:32)
[2020-09-29] MEDS ORDERED: LORazepam 2 MG/ML INJ IV PRN (21:32)
[2020-09-29] MEDS ORDERED: FAMOTIDINE 20 MG/2 ML VIAL IV STA (21:32)
[2020-09-29 22:34] LABS: VBG PH 7.3 (7.31-7.41)
[2020-09-29 22:52] LABS: Appearance,Urine Clear (Clear); Bilirubin,Urine Negative (Negative); Blood,Urine Negative (Negative); Color,Urine Yellow; Glucose,Urine (UA) 3+ (Negative); Ketones,Urine 1+ (Negative); Leukocyte Esterase,Urine Negative (Negative); Nitrite,Urine Negative (Negative); Protein,Urine Trace (Negative); Specific Gravity,Urine 1.011 (1.001-1.035); Urobilinogen,Urine <2.0 mg/dL (<2.0)
[2020-09-29] MEDS: LORazepam 2 MG/ML INJ IV PRN (23:25)
[2020-09-29] MEDS ORDERED: INSULIN REGULAR 100 UNIT in SODIUM CHLORIDE 0.9% 100 ML IV SCH (23:30)
[2020-09-29] MEDS ORDERED: SODIUM CHLORIDE 0.9% 1,000 ML IV SCH (23:30)
[2020-09-29] MEDS ORDERED: SODIUM CHLORIDE 0.9% 500 ML 500 ML IV STA (23:39)
[2020-09-30] MEDS ORDERED: INSULIN REGULAR 100 UNIT/ML VIAL IV ONE (00:01)
[2020-09-30] MEDS ORDERED: ONDANSETRON 4 MG/2 ML VIAL IVP STA (01:08)
[2020-09-30] MEDS: LORazepam 2 MG/ML INJ IV PRN ×4 (01:27→11:50)
[2020-09-30 01:59] LABS: African American GFR (CKD) >90 (>60 ml/min/1.73 sqM); Anion Gap 20 mmol/L; Blood Urea Nitrogen 2 mg/dL (9-20); Calcium 8.7 mg/dL (8.4-10.2); Carbon Dioxide 15 mmol/L (22-30); Chloride 107 mmol/L (98-107); Glucose 158 mg/dL (74-99); Non-African American GFR(CKD) >90 (>60 ml/min/1.73 sqM); Potassium 4.4 mmol/L (3.5-5.1); Sodium 142 mmol/L (137-145)
[2020-09-30] MEDS ORDERED: ONDANSETRON 4 MG ODT STARTER PACK 2 TAB BTL PO STA (02:38)
[2020-09-30] MEDS ORDERED: ONDANSETRON 4 MG/2 ML VIAL IVP PRN (03:02)
[2020-09-30] MEDS ORDERED: NALOXONE 0.4 MG/ML 1 ML VIAL IV PRN (03:02)
[2020-09-30 03:17] LABS: Magnesium 1.8 mg/dL (1.6-2.3); Phosphorus 6.4 mg/dL (2.5-4.5)
[2020-09-30 06:55] VITALS: RESP 18
[2020-09-30] MEDS ORDERED: THIAMINE 100 MG TAB PO SCH (07:30)
[2020-09-30] MEDS ORDERED: ENOXAPARIN 40 MG/0.4 ML SYRINGE SQ STA (10:41)
[2020-09-30] MEDS ORDERED: ZINC SULFATE 220 MG CAP PO SCH (10:45)
[2020-09-30] MEDS ORDERED: SODIUM CHLORIDE 0.9% 1,000 ML IV SCH (10:45)
[2020-09-30 11:09] LABS: Basophils % (A) 1 %; Eosinophils % (A) 0 %; HCT 40.2 % (39.0-53.0); HGB 14.5 gm/dL (13.0-17.5); Hyperchromasia Slight; Lymphocytes # (A) 0.9 k/uL (1.0-4.8); Lymphocytes % (A) 16 %; MCH 32.2 pg (25.0-35.0); MCHC 36.1 g/dL (31.0-37.0); Monocytes # (A) 0.4 k/uL (0-1.0); Monocytes % (A) 7 %; Neutrophils # (A) 4.2 k/uL (1.3-7.7); Neutrophils % (A) 75 %; Platelet Count 240 k/uL (150-450); Poikilocytosis Slight; RBC 4.51 m/uL (4.30-5.90); RDW 14.3 % (11.5-15.5); WBC 5.5 k/uL (3.8-10.6)
[2020-09-30 11:21] LABS: African American GFR (CKD) >90 (>60 ml/min/1.73 sqM); Anion Gap 7 mmol/L; Blood Urea Nitrogen 3 mg/dL (9-20); C Reactive Protein 0.5 mg/dL (<1.0); Calcium 8.7 mg/dL (8.4-10.2); Carbon Dioxide 29 mmol/L (22-30); Chloride 98 mmol/L (98-107); Glucose 144 mg/dL (74-99); LDH 538 U/L (313-618); Non-African American GFR(CKD) >90 (>60 ml/min/1.73 sqM); Potassium 3.6 mmol/L (3.5-5.1); Sodium 134 mmol/L (137-145)
[2020-09-30 11:54] VITALS: BP 154/92; TEMP 98.2
[2020-09-30 14:57] VITALS: PULSE 100
--- NOTE | 2020-09-30 16:46 | P.HPIM ---
History of Present Illness H&P Date: 09/30/20 Chief Complaint: Alcohol intoxication Patient is a 35-year-old male with a known history of hypertension, diabetes type 2 and recently diagnosed and alcohol abuse presents to ER due to alcohol intoxication. Patient drinks about 1/5 of vodka daily. Patient says that he is attempting to detox himself. Patient has been having tremors sweating, nausea and multiple episodes of nonbilious vomiting. Denied any seizures. No complaints of chest pain or shortness of breath. Patient was recently diagnosed with covid 19. Denied any complaints of fever or chills. No cough or sputum production. Denied any suicidal or homicidal ideation. Patient is awake alert and oriented 3 now. EKG showed sinus tachycardia Laboratory data showed sodium 147 potassium 4.3 chloride 101 bicarb is 12 BUN 3) 0.88 Blood sugar is 282, AST 84 ALT 45 and alk phos 152 Urinalysis showed 3+ glucose and 1+ ketones serum alcohol level is 237 and acetone positive. Gomez virus PCR detected. Review of Systems Constitutional: Patient denies any fever or chills . No generalized weakness or weight loss. Abdomen: Patient denied nausea vomiting and diarrhea and abdominal pain. Cardiovascular: Patient denies any chest pain or short of breath no pa lpitations. Respiratory: patient denied any cough is from production. No shortness of breath Neurologic: Patient denied any numbness or tingling headache. Musculoskeletal: Patient denies any complaints of joint swelling or deformity. Skin: Negative Psychiatric: Negative Endocrine: No heat or cold intolerance. No recent weight gain. Genitourinary: No dysuria or hematuria. All other 14 point ROS negative except the above Past Medical History Past Medical History: Diabetes Mellitus, Eye Disorder, Hypertension Additional Past Medical History / Comment(s): ETOH abuse, Hx of ETOH withdrawal, Glaucoma, covid 09/2020. History of Any Multi-Drug Resistant Organisms: None Reported Past Surgical History: Ear Surgery Additional Past Surgical History / Comment(s): Bilateral myringotomy/tubes, Past Anesthesia/Blood Transfusion Reactions: No Reported Reaction Past Psychological History: No Psychological Hx Reported Smoking Status: Never smoker Past Alcohol Use History: Abuse, Daily Past Drug Use History: Marijuana - Past Family History Father Family Medical History: Diabetes Mellitus Mother Family Medical History: Vascular Disorder Additional Family Medical History / Comment(s): Mother of a brain aneurysm. Medications and Allergies Home Medications Medication Instructions Recorded Confirmed Type Latanoprost/Pf [Latanoprost 0.005% 1 drop BOTH EYES HS 06/10/19 09/29/20 History Eye Drop] Naltrexone HCl [Revia] 50 mg PO DAILY #30 tablet 04/12/20 09/29/20 Rx amLODIPine [Norvasc] 10 mg PO DAILY 08/15/20 09/29/20 History lisinopriL [Zestril] 5 mg PO DAILY 08/15/20 09/29/20 History metFORMIN HCL 1,000 mg PO BID 08/15/20 09/29/20 History LORazepam [Ativan] 1 mg PO HS 3 Days #3 tab 09/30/20 Rx Ondansetron Odt [Zofran Odt] 4 mg PO Q8HR PRN #10 tab 09/30/20 Rx Allergies Allergy/AdvReac Type Severity Reaction Status Date / Time No Known Allergies Allergy Verified 09/29/20 19:48 Physical Exam Vitals: Vital Signs Temp Pulse Resp BP Pulse Ox 09/30/20 06:00 113 H 18 135/85 98 09/30/20 03:02 128 H 19 127/91 98 09/30/20 00:07 115 H 16 136/74 99 09/29/20 21:30 114 H 16 120/66 98 09/29/20 19:43 97.5 F L 148 H 18 113/71 97 Intake and Output 09/29/20 09/30/20 09/30/20 22:59 06:59 14:59 Other: Weight 99.79 kg PHYSICAL EXAMINATION: Patient is lying in the bed comfortably, no acute distress, awake alert and oriented.. HEENT: Normocephalic. Neck is supple. Pupils reactive. Nostrils clear. Oral cavity is moist. Ears reveal no drainage. Neck reveals no JVD, carotid bruits, or thyromegaly. CHEST EXAMINATION: Trachea is central. Symmetrical expansion. Lung pollard clear to auscultation and percussion. CARDIAC: Normal S1, S2 with no gallops. No murmurs ABDOMEN: Soft. Bowel sounds normal. No organomegaly. No abdominal bruits. Extremities: reveal no edema. No clubbing or cyanosis Neurologically awake, alert, oriented x3 with well-coordinated movements. No focal deficits noted Skin: No rash or skin lesions. Psychiatric: Coperative. Nonsuicidal Musculoskeletal: No joint swelling or deformity. Normal range of motion. Results CBC & Chem 7: 09/30/20 10:44 09/30/20 10:44 Labs: Abnormal Lab Results - Last 24 Hours (Table) 09/29/20 09/29/20 09/29/20 Range/Units 19:59 19:59 19:59 Plt Count 463 H D (150-450) k/uL Neutrophils # 8.7 H (1.3-7.7) k/uL VBG pH (7.31-7.41) VBG HCO3 (24-28) mmol/L Sodium 147 H (137-145) mmol/L Carbon Dioxide 12 L (22-30) mmol/L BUN 3 L (9-20) mg/dL Creatinine (0.66-1.25) mg/dL Glucose 282 H (74-99) mg/dL Phosphorus 6.4 H (2.5-4.5) mg/dL AST 84 H (17-59) U/L Alkaline Phosphatase 152 H (38-126) U/L Total Protein 8.3 H (6.3-8.2) g/dL Urine Protein (Negative) Urine Glucose (UA) (Negative) Urine Ketones (Negative) Serum Alcohol 237 H* mg/dL Coronavirus (PCR) (Not Detectd) 09/29/20 09/29/20 09/30/20 Range/Units 21:48 22:26 00:57 Plt Count (150-450) k/uL Neutrophils # (1.3-7.7) k/uL VBG pH 7.30 L (7.31-7.41) VBG HCO3 18 L (24-28) mmol/L Sodium (137-145) mmol/L Carbon Dioxide 15 L (22-30) mmol/L BUN 2 L (9-20) mg/dL Creatinine 0.62 L (0.66-1.25) mg/dL Glucose 158 H (74-99) mg/dL Phosphorus (2.5-4.5) mg/dL AST (17-59) U/L Alkaline Phosphatase (38-126) U/L Total Protein (6.3-8.2) g/dL Urine Protein Trace H (Negative) Urine Glucose (UA) 3+ H (Negative) Urine Ketones 1+ H (Negative) Serum Alcohol mg/dL Coronavirus (PCR) (Not Detectd) 09/30/20 Range/Units 03:52 Plt Count (150-450) k/uL Neutrophils # (1.3-7.7) k/uL VBG pH (7.31-7.41) VBG HCO3 (24-28) mmol/L Sodium (137-145) mmol/L Carbon Dioxide (22-30) mmol/L BUN (9-20) mg/dL Creatinine (0.66-1.25) mg/dL Glucose (74-99) mg/dL Phosphorus (2.5-4.5) mg/dL AST (17-59) U/L Alkaline Phosphatase (38-126) U/L Total Protein (6.3-8.2) g/dL Urine Protein (Negative) Urine Glucose (UA) (Negative) Urine Ketones (Negative) Serum Alcohol mg/dL Coronavirus (PCR) Detected A (Not Detectd) Thrombosis Risk Factor Assmnt - DVT/VTE Prophylaxis DVT/VTE Prophylaxis: Pharmacologic Prophylaxis ordered Assessment and Plan Assessment: Acute alcohol intoxication Anion gap metabolic acidosis due to EtOH/starvation ketoacidosis and DKA Mild diabetic ketoacidosis. Acetone positive. 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 Plan: Patient will be continued on IV hydration and monitor her lites closely. Patient was given IV insulin in the ER and continue with insulin sliding scale and add long-acting insulin. A1c level was ordered. Anion gap is closing. Patient denied any nausea vomiting and able to tolerate oral diet. Continue to monitor closely and further recommendations based on the clinical course. Alcohol abstinence has been counseled extensively. Time with Patient: Greater than 30
[2020-09-30 18:05] LABS: Ferritin 615.9 ng/mL (22.0-322.0)
[2020-09-30 18:17] LABS: Hemoglobin A1C 6.8 % (4.0-6.0)
[2020-09-30] MEDS ORDERED: LATANOPROST 0.005% OPHTH DROPS 2.5 ML BTL BOTH EYES SCH (21:00)
[2020-10-01] MEDS ORDERED: ENOXAPARIN 40 MG/0.4 ML SYRINGE SQ SCH (09:00)
--- NOTE | 2020-10-18 10:13 | P.DS ---
Providers Date of admission: 09/30/20 03:37 Expected date of discharge: 09/30/20 Attending physician: Antoinette Hdez MD Primary care physician: Stated None Hospital Course: Discharge diagnosis Acute alcohol intoxication Anion gap metabolic acidosis due to EtOH/starvation ketoacidosis and DKA Mild diabetic ketoacidosis. Acetone positive. 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 Hospital course Patient is a 35-year-old male with a known history of hypertension, diabetes type 2 and recently diagnosed and alcohol abuse presents to ER due to alcohol intoxication. Patient drinks about 1/5 of vodka daily. Patient says that he is attempting to detox himself. Patient has been having tremors sweating, nausea and multiple episodes of nonbilious vomiting. Denied any seizures. No complaints of chest pain or shortness of breath. Patient was recently diagnosed with covid 19. Denied any complaints of fever or chills. No cough or sputum production. Denied any suicidal or homicidal ideation. Patient is awake alert and oriented 3 now. EKG showed sinus tachycardia Laboratory data showed sodium 147 potassium 4.3 chloride 101 bicarb is 12 BUN 3) 0.88 Blood sugar is 282, AST 84 ALT 45 and alk phos 152 Urinalysis showed 3+ glucose and 1+ ketones serum alcohol level is 237 and acetone positive. Gomez virus PCR detected. Patient was continued on IV hydration and monitor her lites closely. Patient was given IV insulin in the ER and continue with insulin sliding scale and add long-acting insulin. A1c level was ordered. Anion gap is closing. Patient denied any nausea vomiting and able to tolerate oral diet. Continue to monitor closely and further recommendations based on the clinical course. Alcohol abstinence has been counseled extensively. Patient left AMA Patient Condition at Discharge: Undetermined Plan - Discharge Summary New Discharge Prescriptions: New Ondansetron Odt [Zofran Odt] 4 mg PO Q8HR PRN #10 tab PRN Reason: Nausea LORazepam [Ativan] 1 mg PO HS 3 Days #3 tab No Action Latanoprost/Pf [Latanoprost 0.005% Eye Drop] 1 drop BOTH EYES HS Naltrexone HCl [Revia] 50 mg PO DAILY #30 tablet metFORMIN HCL 1,000 mg PO BID lisinopriL [Zestril] 5 mg PO DAILY amLODIPine [Norvasc] 10 mg PO DAILY Discharge Medication List Latanoprost/Pf [Latanoprost 0.005% Eye Drop] 1 drop BOTH EYES HS 06/10/19 [History] Naltrexone HCl [Revia] 50 mg PO DAILY #30 tablet 04/12/20 [Rx] amLODIPine [Norvasc] 10 mg PO DAILY 08/15/20 [History] lisinopriL [Zestril] 5 mg PO DAILY 08/15/20 [History] metFORMIN HCL 1,000 mg PO BID 08/15/20 [History] LORazepam [Ativan] 1 mg PO HS 3 Days #3 tab 09/30/20 [Rx] Ondansetron Odt [Zofran Odt] 4 mg PO Q8HR PRN #10 tab 09/30/20 [Rx] Follow up Appointment(s)/Referral(s): None,Stated [Primary Care Provider] - 1-2 days Patient Instructions/Handouts: Alcohol Withdrawal (DC) Activity/Diet/Wound Care/Special Instructions: Please return to the Emergency Department if symptoms worsen or any other concerns. Take prescribed medication as directed. Discharge Disposition: Left Against Medical Advice
== END 2020-09-30 16:05 | disposition left against medical advice (07) | DRG 894 ==
LOC: EC 19:39 → 5NMEDONC 09-30 03:37 → 1SOBS 09-30 04:43
PROVIDERS: ADMIT Internal Medicine; ATTEND Internal Medicine
DX: F10.229 Alcohol dependence with intoxication, unspecified (principal); E11.10 Type 2 diabetes mellitus with ketoacidosis without coma; E87.0 Hyperosmolality and hypernatremia; H40.9 Unspecified glaucoma; F10.239 Alcohol dependence with withdrawal, unspecified; E86.9 Volume depletion, unspecified; I10 Essential (primary) hypertension; K76.9 Liver disease, unspecified; Z79.84 Long term (current) use of oral hypoglycemic drugs; Z79.899 Other long term (current) drug therapy; Z83.3 Family history of diabetes mellitus; Z86.16 Personal history of COVID-19; Z20.822 Contact with and (suspected) exposure to COVID-19; Z71.41 Alcohol abuse counseling and surveillance of alcoholic
CPT/HCPCS: 36415; 80048; 80053; 80320; 81003; 82009; 82728; 82803; 83036; 83615; 83735; 84100; 85025; 85379; 86140; 87635; 93005; 96361; 96374; 96375; 96376; 99285

== ENCOUNTER 2020-11-17 12:45 | Inpatient (IN) | payer OTHER ==
[2020-11-17 13:37] VITALS: TEMP 97.6
[2020-11-17] MEDS ORDERED: LORazepam 2 MG/ML INJ IV STA (14:18)
[2020-11-17] MEDS ORDERED: ONDANSETRON 4 MG/2 ML VIAL IVP STA (14:18)
--- NOTE | 2020-11-17 14:31 | ED ---
General Adult HPI - General Chief complaint: Nausea/Vomiting/Diarrhea Stated complaint: ETOH withdrawals Time Seen by Provider: 11/17/20 14:17 Source: patient Mode of arrival: ambulatory Limitations: no limitations - History of Present Illness Initial comments: Patient is a 35-year-old male with a known history of hypertension, diabetes type 2 and recently diagnosed and alcohol abuse presents to ER due to alcohol intoxication. Patient reports typically drinks a fifth of vodka daily. States he was clean for quite some time before relapsing several years ago. States the last time he drank was about 10 hours ago prior to arrival. reports going th rough withdrawals along with tremors and anxiety. He also reports nausea and multiple episodes of nonbloody bilious and nonbloody vomiting. Denies any chest pain or shortness of breath. Denies any homicidal, suicidal thoughts or ideations at this time. - Related Data Home Medications Medication Instructions Recorded Confirmed Latanoprost/Pf [Latanoprost 0.005% 1 drop BOTH EYES HS 06/10/19 09/29/20 Eye Drop] amLODIPine [Norvasc] 10 mg PO DAILY 08/15/20 09/29/20 lisinopriL [Zestril] 5 mg PO DAILY 08/15/20 09/29/20 metFORMIN HCL 1,000 mg PO BID 08/15/20 09/29/20 Previous Rx's Medication Instructions Recorded Naltrexone HCl [Revia] 50 mg PO DAILY #30 tablet 04/12/20 LORazepam [Ativan] 1 mg PO HS 3 Days #3 tab 09/30/20 Ondansetron Odt [Zofran Odt] 4 mg PO Q8HR PRN #10 tab 09/30/20 Allergies Allergy/AdvReac Type Severity Reaction Status Date / Time No Known Allergies Allergy Verified 11/17/20 13:37 Review of Systems ROS Statement: Those systems with pertinent positive or pertinent negative responses have been documented in the HPI. ROS Other: All systems not noted in ROS Statement are negative. Past Medical History Past Medical History: Diabetes Mellitus, Eye Disorder, Hypertension Additional Past Medical History / Comment(s): ETOH abuse, Hx of ETOH withdrawal, Glaucoma, covid 09/2020. History of Any Multi-Drug Resistant Organisms: None Reported Past Surgical History: Ear Surgery Additional Past Surgical History / Comment(s): Bilateral myringotomy/tubes, Past Anesthesia/Blood Transfusion Reactions: No Reported Reaction Past Psychological History: No Psychological Hx Reported Smoking Status: Never smoker Past Alcohol Use History: Abuse, Daily Past Drug Use History: Marijuana - Past Family History Father Family Medical History: Diabetes Mellitus Mother Family Medical History: Vascular Disorder Additional Family Medical History / Comment(s): Mother of a brain aneurysm. General Exam Limitations: no limitations General appearance: alert, in no apparent distress, anxious, obese Head exam: Present: atraumatic, normocephalic, normal inspection Eye exam: Present: normal appearance, PERRL, EOMI Pupils: Present: normal accommodation ENT exam: Present: normal exam, normal oropharynx, mucous membranes moist, TM's normal bilaterally, normal external ear exam Neck exam: Present: normal inspection, full ROM. Absent: tenderness Respiratory exam: Present: normal lung sounds bilaterally. Absent: respiratory distress, wheezes, rales, rhonchi, stridor, chest wall tenderness, accessory muscle use Cardiovascular Exam: Present: regular rate, normal rhythm, normal heart sounds. Absent: systolic murmur GI/Abdominal exam: Present: soft. Absent: distended, tenderness, guarding, rebound Extremities exam: Present: normal inspection, full ROM, normal capillary refill. Absent: tenderness, pedal edema, joint swelling Back exam: Present: normal inspection, full ROM. Absent: tenderness, CVA tenderness (R), CVA tenderness (L) Neurological exam: Present: alert, oriented X3 Psychiatric exam: Present: normal affect, normal mood Skin exam: Present: warm, dry, intact, normal color Course Vital Signs 11/17/20 13:34 Temperature 97.6 F Pulse Rate 135 H Respiratory 20 Rate Blood Pressure 125/87 O2 Sat by Pulse 95 Oximetry Medical Decision Making - Medical Decision Making Patient is a 35-year-old male with a known history of hypertension, diabetes type 2 and recently diagnosed and alcohol abuse presents to ER due to alcohol intoxication. On physical examination, patient is quite anxious with mild tremors in the hands. CBC unremarkable. CMP reveals mild transaminitis. Glucose of 200. Anion gap of 28. Blood alcohol 237. Acetone negative. Patient given 2 L of IV fluids here. No DKA at this time. EKG showing sinus tach. Patient will be admitted for further medical management and psychiatric evaluation. Case discussed with Dr. Cannon Admitting physician is Dr. Abreu Psychiatry consult - Lab Data Result diagrams: 11/17/20 14:23 11/17/20 14:23 Lab Results 11/17/20 11/17/20 11/17/20 Range/Units 14:23 14:23 14:23 WBC 7.8 (3.8-10.6) k/uL RBC 5.52 (4.30-5.90) m/uL Hgb 17.4 (13.0-17.5) gm/dL Hct 50.0 (39.0-53.0) % MCV 90.5 (80.0-100.0) fL MCH 31.5 (25.0-35.0) pg MCHC 34.8 (31.0-37.0) g/dL RDW 14.2 (11.5-15.5) % Plt Count 289 (150-450) k/uL MPV 7.9 Neutrophils % 76 % Lymphocytes % 17 % Monocytes % 5 % Eosinophils % 0 % Basophils % 1 % Neutrophils # 6.0 (1.3-7.7) k/uL Lymphocytes # 1.3 (1.0-4.8) k/uL Monocytes # 0.4 (0-1.0) k/uL Eosinophils # 0.0 (0-0.7) k/uL Basophils # 0.1 (0-0.2) k/uL Sodium 143 (137-145) mmol/L Potassium 4.3 (3.5-5.1) mmol/L Chloride 101 (98-107) mmol/L Carbon Dioxide 14 L (22-30) mmol/L Anion Gap 28 mmol/L BUN 9 (9-20) mg/dL Creatinine 0.88 (0.66-1.25) mg/dL Est GFR (CKD-EPI)AfAm >90 (>60 ml/min/1.73 sqM) Est GFR (CKD-EPI)NonAf >90 (>60 ml/min/1.73 sqM) Glucose 199 H (74-99) mg/dL Calcium 9.5 (8.4-10.2) mg/dL Total Bilirubin 1.2 (0.2-1.3) mg/dL AST 71 H (17-59) U/L ALT 54 H (4-49) U/L Alkaline Phosphatase 125 (38-126) U/L Total Protein 8.2 (6.3-8.2) g/dL Albumin 5.4 H (3.5-5.0) g/dL Urine Opiates Screen Not Detected (NotDetected) Ur Oxycodone Screen Not Detected (NotDetected) Urine Methadone Screen Not Detected (NotDetected) Ur Propoxyphene Screen Not Detected (NotDetected) Ur Barbiturates Screen Not Detected (NotDetected) U Tricyclic Antidepress Not Detected (NotDetected) Ur Phencyclidine Scrn Not Detected (NotDetected) Ur Amphetamines Screen Not Detected (NotDetected) U Methamphetamines Scrn Not Detected (NotDetected) U Benzodiazepines Scrn Not Detected (NotDetected) Urine Cocaine Screen Not Detected (NotDetected) U Marijuana (THC) Screen Not Detected (NotDetected) Serum Alcohol 237 H* mg/dL Acetone, Qual Negative (Negative) - EKG Data EKG Comments: Left posterior fascicular block, sinus tachycardia Ventricular rate 124, NC 140, QRS 80, QTC 442. Disposition Clinical Impression: Alcoholic intoxication Disposition: ADMITTED IP TO THIS [facility] Condition: Good Is patient prescribed a controlled substance at d/c from ED?: No Referrals: None,Stated [Primary Care Provider] - 1-2 days Time of Disposition: 16:01
[2020-11-17 14:42] LABS: Basophils # (A) 0.1 k/uL (0-0.2); Basophils % (A) 1 %; Eosinophils % (A) 0 %; HGB 17.4 gm/dL (13.0-17.5); Lymphocytes # (A) 1.3 k/uL (1.0-4.8); Lymphocytes % (A) 17 %; MCH 31.5 pg (25.0-35.0); MCHC 34.8 g/dL (31.0-37.0); MCV 90.5 fL (80.0-100.0); Mean Platelet Volume 7.9; Monocytes # (A) 0.4 k/uL (0-1.0); Monocytes % (A) 5 %; Neutrophils % (A) 76 %; Platelet Count 289 k/uL (150-450); RBC 5.52 m/uL (4.30-5.90); RDW 14.2 % (11.5-15.5); WBC 7.8 k/uL (3.8-10.6)
[2020-11-17 14:52] LABS: AST 71 U/L (17-59); African American GFR (CKD) >90 (>60 ml/min/1.73 sqM); Albumin 5.4 g/dL (3.5-5.0); Alkaline Phosphatase 125 U/L (38-126); Anion Gap 28 mmol/L; Blood Urea Nitrogen 9 mg/dL (9-20); Calcium 9.5 mg/dL (8.4-10.2); Carbon Dioxide 14 mmol/L (22-30); Chloride 101 mmol/L (98-107); Glucose 199 mg/dL (74-99); Non-African American GFR(CKD) >90 (>60 ml/min/1.73 sqM); Potassium 4.3 mmol/L (3.5-5.1); Sodium 143 mmol/L (137-145); Total Bilirubin 1.2 mg/dL (0.2-1.3); Total Protein 8.2 g/dL (6.3-8.2)
[2020-11-17 14:54] LABS: Alcohol 237 mg/dL
[2020-11-17] MEDS ORDERED: SODIUM CHLORIDE 0.9% 1,000 ML IV STA ×2 (14:56→16:00)
[2020-11-17 14:58] LABS: Amphetamine Screen,Urine Not Detected (NotDetected); Barbiturate Screen,Urine Not Detected (NotDetected); Benzodiazepines Screen,Urine Not Detected (NotDetected); Cocaine Screen,Urine Not Detected (NotDetected); Methadone Screen, Urine Not Detected (NotDetected); Opiate Screen,Urine Not Detected (NotDetected); Oxycodone Screen, Urine Not Detected (NotDetected); Phencyclidine Screen,Urine Not Detected (NotDetected); Tricyclic Antidepressant,Urine Not Detected (NotDetected); Urn Cannabinoid Scrn Not Detected (NotDetected)
[2020-11-17 14:59] LABS: ALT 54 U/L (4-49)
[2020-11-17] MEDS ORDERED: LORazepam 2 MG/ML INJ IV PRN (15:29)
[2020-11-17] MEDS ORDERED: THIAMINE 100 MG/ML 2 ML VIAL IM STA (15:29)
[2020-11-17] MEDS: LORazepam 2 MG/ML INJ IV PRN ×4 (15:47→21:42)
[2020-11-17] MEDS ORDERED: NALOXONE 0.4 MG/ML 1 ML VIAL IV PRN (15:56)
[2020-11-17] MEDS ORDERED: METOCLOPRAMIDE 5 MG/ML 2 ML VIAL IVP PRN (18:22)
[2020-11-17] MEDS ORDERED: HYDROcodone/APAP 5-325MG 1 EACH TAB PO PRN (18:57)
[2020-11-17] MEDS ORDERED: HYDROmorphone 0.5 MG/0.5 ML SYRINGE IVP PRN (18:57)
[2020-11-17] MEDS ORDERED: SODIUM CHLORIDE 0.9% 1,000 ML with MVI, ADULT NO.4 WITH VIT K 10 ML, THIAMINE 100 MG, F... IV ONE ×4 (19:15)
[2020-11-17] MEDS: SODIUM CHLORIDE 0.9% 1,000 ML IV SCH (19:36)
--- NOTE | 2020-11-17 19:55 | XR ---
EXAMINATION TYPE: XR abdomen acute w cxr DATE OF EXAM: 11/17/2020 COMPARISON: NONE HISTORY: Nausea. TECHNIQUE: 4 views FINDINGS: Heart and mediastinum are normal. Lungs are clear. Diaphragm is normal. Bony thorax is inta ct. There are no pathologic calcifications over the kidneys. Bowel gas pattern is normal. There is no sign of intestinal obstruction or pneumoperitoneum. IMPRESSION: Nonacute abdomen. Normal chest.
[2020-11-17 20:46] VITALS: RESP 18
[2020-11-17] MEDS ORDERED: LATANOPROST 0.005% OPHTH DROPS 2.5 ML BTL BOTH EYES SCH (21:00)
--- NOTE | 2020-11-17 21:48 | HP ---
HISTORY AND PHYSICAL DATE OF SERVICE: 11/17/2020 CHIEF COMPLAINT: Tremors and alcohol withdrawal. HISTORY OF PRESENT ILLNESS: This 35-year-old gentleman with a past medical history of multiple multiple medical problems including diabetes mellitus, history hypertension, history EtOH abuse, also had some symptoms of ETOH withdrawal. The patient had incessant vomiting and the patient also has some possibly alcohol withdrawal syndrome. There is no evidence of diabetic ketoacidosis. The patient was admitted for evaluation and treatment. The labs showed CO2 was 14, sugars 199. Otherwise, the urine was negative. Alcohol level 237 and COVID-19 is negative. There is no history of fever, rigors, chills at this time. PAST MEDICAL HISTORY: History of diabetes type 2, hypertension, history EtOH abuse and withdrawal, glaucoma. MEDICATIONS: Home medications are metformin 1000 mg b.i.d., Zestril 5 mg daily, Norvasc, ReVia and latanoprost. ALLERGIES: None. FAMILY HISTORY: History of diabetes mellitus and brain aneurysm. SOCIAL HISTORY: No history of smoking, alcohol as mentioned. REVIEW OF SYSTEMS: ENT: No diminished vision. No diminished hearing. CARDIOVASCULAR: No angina or palpitations. RESPIRATION: No cough. No hemoptysis. GI: As mentioned earlier. : No dysuria. NERVOUS SYSTEM: No numbness, weakness. ALLERGY/IMMUNOLOGY: No asthma or hayfever. MUSCULOSKELETAL as mentioned earlier. HEMATOLOGY/ONCOLOGY: No history of anemia. ENDOCRINE: History of diabetes. No history of hypothyroidism. CONSTITUTIONAL: As mentioned earlier. DERMATOLOGY: Negative. RHEUMATOLOGY negative. PSYCHIATRY as mentioned. PHYSICAL EXAMINATION: Alert and oriented times three. Pulse 135, blood pressure 120/87, respiration 20, temperature 97.7, pulse ox 94% on room air. HEENT: Conjunctivae normal. Oral mucosa moist. NECK is no jugular venous distention. No carotid bruit. No lymph node enlargement. CARDIOVASCULAR systems: S1, S2 muffled. RESPIRATION: Breath sounds diminished in the bases. A few scattered rhonchi and crackles. ABDOMEN: Soft, mild diffuse tenderness in the epigastrium. No guarding. No rigidity. No mass palpable. LEGS: No edema. No swelling. NERVOUS SYSTEM: Higher functions as mentioned earlier. Moves all four limbs. No focal deficits. LYMPHATICS: No lymph nodes palpable in the neck, axillae or groin. SKIN: No ulcer, no rash and no bleeding. JOINTS: No active deforming arthropathy. LABORATORY DATA: EKG showed sinus tachycardia, ST changes. Otherwise other labs are showing CBC within normal limits. CO2 is 14. Glucose 199, AST 71, ALT is 54. ASSESSMENT: 1. Acute alcohol withdrawal syndrome and acute delirium tremens. 2. Incessant vomiting possible acute gastritis. 3. Acute metabolic acidosis secondary from vomiting. 4. Increased AST, ALT, alcoholic hepatitis. 5. Diabetes mellitus type 2. 6. History of hypertension. 7. History of EtOH abuse. 8. History of glaucoma. 9. History of bilateral myringotomy. 10.History of THC. 11.Obesity with body mass of 34. 12.FULL CODE. RECOMMENDATIONS AND DISCUSSION: This 35-year-old gentleman who presented with multiple complex medical issues, I would recommend to continue current medications, symptomatic treatment. Otherwise, [facility] protocol. Proton pump inhibitors. I would also recommend n.p.o. except medications. Recommend amylase, lipase, UA with micro. Repeat labs. IV fluids, banana bag, supplement vitamins. Prognosis guarded because of multiple complex medical issues. ETOH cessation advice recommended. We will monitor the blood sugars closely. As mentioned, the patient does not have any evidence of diabetic ketoacidosis at this time. Continue to monitor. Prognosis guarded because of multiple complex medical issues. Further recommendations to follow. Recommend close followup with primary physician in the outpatient setting. MMODL / IJN: [id number] / MTDD
[2020-11-17] MEDS: HEPARIN SODIUM,PORCINE/PF 5,000 UNIT/0.5 ML SYRINGE SQ SCH (22:36)
[2020-11-17 22:54] LABS: Glucose,Whole Blood 121 mg/dL (75-99)
[2020-11-17] MEDS: PANTOPRAZOLE 40 MG/10 ML VIAL IVP SCH (22:57)
[2020-11-17] MEDS: INSULIN ASPART (NovoLOG) 100 UNIT/ML VIAL SQ SCH (23:03)
[2020-11-18] MEDS: LORazepam 2 MG/ML INJ IV PRN (04:36)
[2020-11-18 05:42] LABS: Appearance,Urine Cloudy (Clear); Bilirubin,Urine Negative (Negative); Blood,Urine Negative (Negative); Color,Urine Yellow; Glucose,Urine (UA) 1+ (Negative); Hyaline Casts,Urine 36 /lpf (0-2); Leukocyte Esterase,Urine Large (Negative); Mucus,Urine Rare /hpf; Nitrite,Urine Negative (Negative); Protein,Urine 1+ (Negative); RBC,Urine 4 /hpf (0-5); Specific Gravity,Urine 1.026 (1.001-1.035); Squamous Epithelial Cell,Urine 2 /hpf (0-4); Urobilinogen,Urine <2.0 mg/dL (<2.0); WBC,Urine 118 /hpf (0-5)
[2020-11-18 05:50] LABS: Ketones,Urine 3+ (Negative)
[2020-11-18] MEDS: SODIUM CHLORIDE 0.9% 1,000 ML IV SCH (06:10)
[2020-11-18] MEDS ORDERED: THIAMINE 100 MG TAB PO SCH (07:30)
[2020-11-18 07:44] LABS: Glucose,Whole Blood 123 mg/dL (75-99)
[2020-11-18] MEDS: INSULIN ASPART (NovoLOG) 100 UNIT/ML VIAL SQ SCH (08:05)
[2020-11-18] MEDS: PANTOPRAZOLE 40 MG/10 ML VIAL IVP SCH (08:35)
[2020-11-18] MEDS ORDERED: NALTREXONE HCL 50 MG TAB PO SCH (09:00)
[2020-11-18] MEDS ORDERED: amLODIPine 10 MG TAB PO SCH (09:00)
[2020-11-18] MEDS ORDERED: lisinopriL 5 MG TAB PO SCH (09:00)
[2020-11-18] MEDS ORDERED: PANTOPRAZOLE 40 MG/10 ML VIAL IV SCH (09:00)
[2020-11-18] MEDS: HEPARIN SODIUM,PORCINE/PF 5,000 UNIT/0.5 ML SYRINGE SQ SCH (11:05)
[2020-11-18 11:36] VITALS: BP 154/99; PULSE 98
[2020-11-18 11:59] LABS: Basophils # (A) 0.03 X 10*3/uL (0.00-0.10); Basophils % (A) 0.6 %; Eosinophils # (A) 0.04 X 10*3/uL (0.04-0.35); Eosinophils % (A) 0.8 %; HCT 42.8 % (39.6-50.0); HGB 14.9 g/dL (13.0-17.0); Lymphocytes % (A) 26.7 %; MCH 31.6 pg (27.0-32.0); MCHC 34.8 g/dL (32.0-37.0); MCV 90.9 fL (80.0-97.0); Monocytes # (A) 0.65 X 10*3/uL (0.20-1.00); Monocytes % (A) 12.4 %; Neutrophils # (A) 3.12 X 10*3/uL (1.80-7.70); Neutrophils % (A) 59.3 %; Platelet Count 167 X 10*3/uL (140-440); RBC 4.71 X 10*6/uL (4.40-5.60); RDW 13.6 % (11.5-14.5); WBC 5.25 X 10*3/uL (4.50-10.00)
[2020-11-18] MEDS ORDERED: SULFAMETHOX-TMP 800-160MG 1 EACH TAB PO SCH (12:15)
[2020-11-18 20:24] LABS: African American GFR (CKD) 132.3 (60.0-200.0); Albumin 4.7 g/dL (3.80-4.90); Albumin/Globulin Ratio 1.68 (1.60-3.17); Anion Gap 27.3 mmol/L (4.00-12.00); BUN/Creat Ratio 12.5 Ratio (12.00-20.00); Carbon Dioxide 13.7 mmol/L (21.6-31.8); Globulin 2.8 g/dL (1.6-3.3); Non-African American GFR(CKD) 114.1 (60.0-200.0); Potassium 4.6 mmol/L (3.5-5.5); Total Bilirubin 1.3 mg/dL (0.3-1.2); Total Protein 7.5 g/dL (6.2-8.2)
--- NOTE | 2020-11-18 21:55 | DS ---
DISCHARGE SUMMARY DATE OF SERVICE: 11/18/2020 FINAL DIAGNOSES: 1. Acute alcohol withdrawal syndrome and acute delirium tremens. 2. Incessant vomiting, possible acute gastritis. 3. Acute metabolic acidosis, improved. 4. Increased AST/ALT alcoholic hepatitis. 5. Diabetes mellitus type 2. 6. Hypertension. 7. Acute urinary tract infection present on admission. 8. History of EtOH abuse. 9. History of glaucoma. 10.History of bilateral myringotomy. 11.History of THC. 12.Obesity with body mass index of 34. 13.FULL CODE. DISCHARGE DISPOSITION: The patient discharged in stable condition. Guarded prognosis. The patient is extremely keen on going home at this time. HISTORY OF PRESENT ILLNESS: This 35-year-old gentleman with a past medical history of multiple medical problems admitted with acute alcohol withdrawal and delirium tremens, treated symptomatically. Patient also has vomiting. The patient improved significantly. Patient is able to keep the food normal. The patient is keen on going home at this time. The patient will be discharged in stable condition with guarded prognosis. On exam, vitals are stable. Patient with acute UTI, treated with antibiotics. DISCHARGE INSTRUCTIONS/MEDICATION: 1. Diet is cardiac. 2. Activity limited until followup. 3. Follow up with primary physician in 2-3 days. 4. No ETOH. 5. Attend alcohol rehab and AA meetings. 6. Latanoprost 1 drop both eyes. 7. Metformin 1000 mg p.o. b.i.d. 8. Norvasc 10 mg daily. 9. Zestril 5 mg p.o. daily. 10.Bactrim DS 1 p.o. b.i.d. for 3 days. 11.Folic acid 1 mg p.o. daily. 12.Multivitamins 1 p.o. daily. 13.Protonix 40 mg daily. 14.ReVia 50 mg p.o. daily. 15.Vitamin thiamine 100 mg p.o. daily. 16.CBC BMP with the primary physician. MMODL / IJN: [id number] /
== END 2020-11-18 13:56 | disposition home or self-care (01) | DRG 897 ==
LOC: EC 12:45 → 4SSUR 15:59
PROVIDERS: ADMIT Hospitalist; ATTEND Hospitalist
DX: F10.131 Alcohol abuse with withdrawal delirium (principal); E87.2 Acidosis; N39.0 Urinary tract infection, site not specified; F10.129 Alcohol abuse with intoxication, unspecified; I10 Essential (primary) hypertension; E11.9 Type 2 diabetes mellitus without complications; Z79.84 Long term (current) use of oral hypoglycemic drugs; Z86.16 Personal history of COVID-19; H40.9 Unspecified glaucoma; Z20.822 Contact with and (suspected) exposure to COVID-19; Z83.3 Family history of diabetes mellitus; Y90.7 Blood alcohol level of 200-239 mg/100 ml; K70.10 Alcoholic hepatitis without ascites; E66.9 Obesity, unspecified; Z68.34 Body mass index [BMI] 34.0-34.9, adult
CPT/HCPCS: 36415; 74022; 80053; 80306; 80320; 81001; 82009; 85025; 87635; 93005; 96372; 96374; 96375; 99285

== ENCOUNTER 2021-01-07 10:00 | Emergency (ER) | payer OTHER ==
[2021-01-07 10:03] VITALS: TEMP 97.9
[2021-01-07] MEDS ORDERED: THIAMINE 100 MG/ML 2 ML VIAL IM STA (10:19)
[2021-01-07] MEDS ORDERED: LORazepam 2 MG/ML INJ IV PRN ×3 (10:19)
[2021-01-07] MEDS ORDERED: SODIUM CHLORIDE 0.9% 1,000 ML IV STA (10:19)
[2021-01-07] MEDS ORDERED: FOLIC ACID 1 MG TAB PO STA (10:19)
[2021-01-07 10:40] LABS: Glucose,Whole Blood 173 mg/dL (75-99)
[2021-01-07 11:02] LABS: Basophils # (A) 0.1 k/uL (0-0.2); Basophils % (A) 1 %; Eosinophils # (A) 0.1 k/uL (0-0.7); Eosinophils % (A) 1 %; HCT 46.7 % (39.0-53.0); HGB 16.8 gm/dL (13.0-17.5); Hyperchromasia Slight; Lymphocytes # (A) 2.1 k/uL (1.0-4.8); Lymphocytes % (A) 20 %; MCH 32.2 pg (25.0-35.0); MCHC 35.9 g/dL (31.0-37.0); MCV 89.6 fL (80.0-100.0); Mean Platelet Volume 9.5; Monocytes # (A) 0.5 k/uL (0-1.0); Monocytes % (A) 5 %; Neutrophils # (A) 7.6 k/uL (1.3-7.7); Neutrophils % (A) 73 %; Platelet Count 242 k/uL (150-450); RBC 5.21 m/uL (4.30-5.90); RDW 14.6 % (11.5-15.5); WBC 10.5 k/uL (3.8-10.6)
[2021-01-07 11:12] LABS: ALT 32 U/L (4-49); AST 41 U/L (17-59); African American GFR (CKD) >90 (>60 ml/min/1.73 sqM); Albumin 5.2 g/dL (3.5-5.0); Alcohol 51 mg/dL; Alkaline Phosphatase 112 U/L (38-126); Amylase 62 U/L (30-110); Anion Gap 24 mmol/L; Blood Urea Nitrogen 8 mg/dL (9-20); Calcium 9.5 mg/dL (8.4-10.2); Carbon Dioxide 17 mmol/L (22-30); Chloride 96 mmol/L (98-107); Glucose 178 mg/dL (74-99); Lipase 156 U/L (23-300); Non-African American GFR(CKD) >90 (>60 ml/min/1.73 sqM); Phosphorus 3.7 mg/dL (2.5-4.5); Potassium 3.7 mmol/L (3.5-5.1); Sodium 137 mmol/L (137-145); Total Bilirubin 1.1 mg/dL (0.2-1.3)
[2021-01-07 12:52] VITALS: BP 152/102
--- NOTE | 2021-01-07 13:14 | ED ---
Alcohol HPI - General Chief Complaint: Alcohol Stated Complaint: Alcohol withdrawl Time Seen by Provider: 01/07/21 10:05 Source: patient, RN notes reviewed Mode of arrival: ambulatory Limitations: no limitations - History of Present Illness Initial Comments: Patient is a 35-year-old male that presents to the emergency department complaining of alcohol dependency with some withdrawal symptoms. He notes that his last drink was at 10 PM last night. He notes that he was a little bit shaky. He denied any history of seizures or severe tremors. But upon reevaluation prior notes he did have one episode of tremors. Patient was otherwise well-appearing 35-year-old male in no apparent distress or pain. He denied any chest pain shortness of breath headache nausea vomiting diarrhea constipation fever fatigue chills. - Related Data Home Medications Medication Instructions Recorded Confirmed Latanoprost/Pf [Latanoprost 0.005% 1 drop BOTH EYES HS 06/10/19 01/07/21 Eye Drop] amLODIPine [Norvasc] 10 mg PO DAILY 08/15/20 01/07/21 lisinopriL [Zestril] 5 mg PO DAILY 08/15/20 01/07/21 metFORMIN HCL [Glucophage] 1,000 mg PO BID 08/15/20 01/07/21 Previous Rx's Medication Instructions Recorded Naltrexone HCl [Revia] 50 mg PO DAILY #30 tablet 04/12/20 Folic Acid 1 mg PO DAILY #30 tablet 11/18/20 Multivitamins, Thera [Multivitamin] 1 tab PO DAILY #30 tablet 11/18/20 Pantoprazole Sodium [Protonix] 40 mg PO DAILY #10 tablet. 11/18/20 Sulfamethox-Tmp 800-160Mg [Bactrim 1 each PO BID #8 tab 11/18/20 DS 800-160 mg] Thiamine [Vitamin B-1] 100 mg PO DAILY #30 tablet 11/18/20 chlordiazePOXIDE HCl [Librium] 25 mg PO QID #20 capsule 01/07/21 Allergies Allergy/AdvReac Type Severity Reaction Status Date / Time No Known Allergies Allergy Verified 01/07/21 10:00 Review of Systems ROS Statement: Those systems with pertinent positive or pertinent negative responses have been documented in the HPI. ROS Other: All systems not noted in ROS Statement are negative. Past Medical History Past Medical History: Diabetes Mellitus, Eye Disorder, Hypertension Additional Past Medical History / Comment(s): ETOH abuse, Hx of ETOH withdrawal, Glaucoma, covid 09/2020. History of Any Multi-Drug Resistant Organisms: None Reported Past Surgical History: Ear Surgery Additional Past Surgical History / Comment(s): Bilateral myringotomy/tubes, Past Anesthesia/Blood Transfusion Reactions: No Reported Reaction Past Psychological History: No Psychological Hx Reported Smoking Status: Never smoker Past Alcohol Use History: Abuse, Daily Past Drug Use History: Marijuana - Past Family History Father Family Medical History: Diabetes Mellitus Mother Family Medical History: Vascular Disorder Additional Family Medical History / Comment(s): Mother of a brain aneurysm. General Exam Limitations: no limitations General appearance: alert, in no apparent distress, anxious Head exam: Present: atraumatic, normocephalic, normal inspection Eye exam: Present: normal appearance, PERRL, EOMI. Absent: scleral icterus, conjunctival injection, periorbital swelling ENT exam: Present: normal exam Neck exam: Present: normal inspection. Absent: tenderness, meningismus, lymphadenopathy Respiratory exam: Present: normal lung sounds bilaterally. Absent: respiratory distress, wheezes, rales, rhonchi, stridor Cardiovascular Exam: Present: regular rate, normal rhythm, normal heart sounds. Absent: systolic murmur, diastolic murmur, rubs, gallop, clicks GI/Abdominal exam: Present: soft, normal bowel sounds. Absent: distended, tenderness, guarding, rebound, rigid Extremities exam: Present: normal inspection, full ROM, normal capillary refill. Absent: tenderness, pedal edema, joint swelling, calf tenderness Neurological exam: Present: alert, oriented X3 Psychiatric exam: Present: normal affect, normal mood Skin exam: Present: warm, dry, intact, normal color. Absent: rash Course Vital Signs 01/07/21 01/07/21 10:01 12:51 Temperature 97.9 F Pulse Rate 159 H 114 H Respiratory 16 20 Rate Blood Pressure 159/96 152/102 O2 Sat by Pulse 94 L 95 Oximetry Medical Decision Making - Medical Decision Making 35-year-old male with alcohol dependence stating that he is having minor withdrawal symptoms. Labs, alcohol withdrawal protocol, 1 mg of folic acid, Ativan, 100 mg of thiamine ordered. Labs unremarkable. Patient states that he feels much better and is okay with discharge home with close follow-up to his primary care. Case discussed with Dr. Hernandez, patient can discharge home - Lab Data Result diagrams: 01/07/21 10:30 01/07/21 10:30 Lab Results 01/07/21 01/07/21 01/07/21 Range/Units 10:30 10:30 10:37 WBC 10.5 (3.8-10.6) k/uL RBC 5.21 (4.30-5.90) m/uL Hgb 16.8 (13.0-17.5) gm/dL Hct 46.7 (39.0-53.0) % MCV 89.6 (80.0-100.0) fL MCH 32.2 (25.0-35.0) pg MCHC 35.9 (31.0-37.0) g/dL RDW 14.6 (11.5-15.5) % Plt Count 242 (150-450) k/uL MPV 9.5 Neutrophils % 73 % Lymphocytes % 20 % Monocytes % 5 % Eosinophils % 1 % Basophils % 1 % Neutrophils # 7.6 (1.3-7.7) k/uL Lymphocytes # 2.1 (1.0-4.8) k/uL Monocytes # 0.5 (0-1.0) k/uL Eosinophils # 0.1 (0-0.7) k/uL Basophils # 0.1 (0-0.2) k/uL Hyperchromasia Slight Sodium 137 (137-145) mmol/L Potassium 3.7 (3.5-5.1) mmol/L Chloride 96 L (98-107) mmol/L Carbon Dioxide 17 L (22-30) mmol/L Anion Gap 24 mmol/L BUN 8 L (9-20) mg/dL Creatinine 0.67 (0.66-1.25) mg/dL Est GFR (CKD-EPI)AfAm >90 (>60 ml/min/1.73 sqM) Est GFR (CKD-EPI)NonAf >90 (>60 ml/min/1.73 sqM) Glucose 178 H (74-99) mg/dL POC Glucose (mg/dL) 173 H (75-99) mg/dL POC Glu [employer] Operator ID Ashleigh Mauricio Calcium 9.5 (8.4-10.2) mg/dL Phosphorus 3.7 (2.5-4.5) mg/dL Magnesium 2.0 (1.6-2.3) mg/dL Total Bilirubin 1.1 (0.2-1.3) mg/dL AST 41 (17-59) U/L ALT 32 (4-49) U/L Alkaline Phosphatase 112 (38-126) U/L Total Protein 8.0 (6.3-8.2) g/dL Albumin 5.2 H (3.5-5.0) g/dL Amylase 62 (30-110) U/L Lipase 156 (23-300) U/L Serum Alcohol 51 mg/dL Disposition Clinical Impression: Alcohol withdrawal Disposition: HOME SELF-CARE Condition: Stable Instructions (If sedation given, give patient instructions): Alcohol Withdrawal (ED) Additional Instructions: Please return to the Emergency Department if symptoms worsen or any other concerns. Take Librium as prescribed. Follow-up with primary care in the next 1-2 days. Is patient prescribed a controlled substance at d/c from ED?: No Referrals: None,Stated [Primary Care Provider] - 1-2 days Time of Disposition: 13:14
[2021-01-07 13:35] VITALS: PULSE 108; RESP 18
== END 2021-01-07 13:40 | disposition home or self-care (01) ==
LOC: EC 10:00
DX: F10.239 Alcohol dependence with withdrawal, unspecified (principal); E11.9 Type 2 diabetes mellitus without complications; I10 Essential (primary) hypertension; Z86.16 Personal history of COVID-19; Z79.899 Other long term (current) drug therapy; Z79.84 Long term (current) use of oral hypoglycemic drugs
CPT/HCPCS: 36415; 80053; 82150; 83690; 83735; 84100; 85025; 99284; 96360; 96372; G0480; J2060; J3411; 80320

== ENCOUNTER 2021-02-28 13:00 | Inpatient (IN) | payer OTHER ==
[2021-02-28] MEDS ORDERED: SODIUM CHLORIDE 0.9% 1,000 ML IV STA (13:42)
[2021-02-28] MEDS ORDERED: LORazepam 2 MG/ML INJ IV STA ×2 (13:42→14:03)
[2021-02-28 14:10] LABS: Basophils % (A) 1 %; Eosinophils % (A) 0 %; HCT 49.7 % (39.0-53.0); HGB 17.6 gm/dL (13.0-17.5); Lymphocytes % (A) 13 %; MCH 32.7 pg (25.0-35.0); MCHC 35.5 g/dL (31.0-37.0); MCV 92.3 fL (80.0-100.0); Mean Platelet Volume 8.1; Monocytes % (A) 5 %; Neutrophils % (A) 80 %; Platelet Count 270 k/uL (150-450); RBC 5.38 m/uL (4.30-5.90); RDW 13.7 % (11.5-15.5); WBC 11.3 k/uL (3.8-10.6)
[2021-02-28 14:11] LABS: Basophils # (A) 0.1 k/uL (0-0.2); Lymphocytes # (A) 1.5 k/uL (1.0-4.8); Monocytes # (A) 0.6 k/uL (0-1.0)
[2021-02-28 14:29] LABS: AST 47 U/L (17-59); African American GFR (CKD) >90 (>60 ml/min/1.73 sqM); Albumin 5.2 g/dL (3.5-5.0); Alkaline Phosphatase 104 U/L (38-126); Anion Gap 25 mmol/L; Blood Urea Nitrogen 10 mg/dL (9-20); Calcium 9.4 mg/dL (8.4-10.2); Carbon Dioxide 13 mmol/L (22-30); Chloride 102 mmol/L (98-107); Glucose 201 mg/dL (74-99); Lipase 108 U/L (23-300); Magnesium 1.9 mg/dL (1.6-2.3); Non-African American GFR(CKD) >90 (>60 ml/min/1.73 sqM); Potassium 4.2 mmol/L (3.5-5.1); Sodium 140 mmol/L (137-145); Total Bilirubin 0.9 mg/dL (0.2-1.3); Total Protein 8.2 g/dL (6.3-8.2)
[2021-02-28 14:33] LABS: Appearance,Urine Clear (Clear); Bilirubin,Urine Negative (Negative); Blood,Urine Negative (Negative); Color,Urine Yellow; Glucose,Urine (UA) 2+ (Negative); Hyaline Casts,Urine 89 /lpf (0-2); Leukocyte Esterase,Urine Negative (Negative); Mucus,Urine Few /hpf; Nitrite,Urine Negative (Negative); Protein,Urine 1+ (Negative); RBC,Urine <1 /hpf (0-5); Specific Gravity,Urine 1.022 (1.001-1.035); Squamous Epithelial Cell,Urine <1 /hpf (0-4); Urobilinogen,Urine <2.0 mg/dL (<2.0); WBC,Urine 1 /hpf (0-5)
[2021-02-28 14:34] LABS: ALT 40 U/L (4-49)
[2021-02-28 14:42] LABS: Alcohol 139 mg/dL
[2021-02-28 14:58] LABS: Ketones,Urine 2+ (Negative)
[2021-02-28] MEDS ORDERED: NALOXONE 0.4 MG/ML 1 ML VIAL IV PRN (15:39)
[2021-02-28] MEDS ORDERED: ONDANSETRON 4 MG/2 ML VIAL IVP PRN (15:39)
--- NOTE | 2021-02-28 15:39 | ED ---
General Adult HPI - General Chief complaint: Alcohol Stated complaint: Alcohol Time Seen by Provider: 02/28/21 13:23 Source: patient, RN notes reviewed Mode of arrival: ambulatory Limitations: no limitations - History of Present Illness Initial comments: 35-year-old male presents to the emergency room for a chief complaint of alcoholic withdrawal. Patient has a history of alcohol abuse. States that he usually drinks 1.5 fifths of vodka per day. Patient states his last drink was at 11:00 PM. Patient states he is trying to quit and this is why he has not been drinking. States she has been having nausea vomiting and cannot stop.Patient has no other complaints at this time including shortness of breath, chest pain, abdominal pain, headache, or visual changes. - Related Data Home Medications Medication Instructions Recorded Confirmed Latanoprost/Pf [Latanoprost 0.005% 1 drop BOTH EYES HS 06/10/19 02/28/21 Eye Drop] amLODIPine [Norvasc] 10 mg PO DAILY 08/15/20 02/28/21 lisinopriL [Zestril] 5 mg PO DAILY 08/15/20 02/28/21 metFORMIN HCL [Glucophage] 1,000 mg PO BID 08/15/20 02/28/21 QUEtiapine [SEROquel] 50 mg PO HS PRN 02/28/21 02/28/21 Allergies Allergy/AdvReac Type Severity Reaction Status Date / Time No Known Allergies Allergy Verified 02/28/21 15:48 Review of Systems ROS Statement: Those systems with pertinent positive or pertinent negative responses have been documented in the HPI. ROS Other: All systems not noted in ROS Statement are negative. Past Medical History Past Medical History: Diabetes Mellitus, Eye Disorder, Hypertension Additional Past Medical History / Comment(s): ETOH abuse, Hx of ETOH withdrawal, Glaucoma, covid 09/2020. History of Any Multi-Drug Resistant Organisms: None Reported Past Surgical History: Ear Surgery Additional Past Surgical History / Comment(s): Bilateral myringotomy/tubes, Past Anesthesia/Blood Transfusion Reactions: No Reported Reaction Past Psychological History: No Psychological Hx Reported Smoking Status: Never smoker Past Alcohol Use History: Abuse, Daily Past Drug Use History: None Reported - Past Family History Father Family Medical History: Diabetes Mellitus Mother Family Medical History: Vascular Disorder Additional Family Medical History / Comment(s): Mother of a brain aneurysm. General Exam Limitations: no limitations General appearance: alert, in no apparent distress, anxious Head exam: Present: atraumatic Eye exam: Present: normal appearance, PERRL, EOMI. Absent: scleral icterus, conjunctival injection ENT exam: Present: normal exam, mucous membranes moist Neck exam: Present: normal inspection, full ROM. Absent: tenderness Respiratory exam: Present: normal lung sounds bilaterally. Absent: respiratory distress, wheezes Cardiovascular Exam: Present: regular rate, normal rhythm, normal heart sounds GI/Abdominal exam: Present: soft, normal bowel sounds. Absent: distended, tenderness Neurological exam: Present: alert Course Vital Signs 02/28/21 02/28/21 13:19 16:08 Temperature 98.2 F Pulse Rate 144 H 119 H Respiratory 20 18 Rate Blood Pressure 153/99 158/99 O2 Sat by Pulse 95 94 L Oximetry Medical Decision Making - Medical Decision Making Patient presents tachycardic likely secondary to alcoholic withdrawal. CBC CMP unremarkable. Magnesium is 1.9. Urinalysis shows 2+ ketones which is likely the cause of patient's anion gap of 25 likely related to alcoholic ketosis. Serum alcohol is 139. Patient states he has not drank since 11 PM last night. Patient is very tremulous in the emergency room with a CIWA of 18. Will need to be admitted for alcoholic withdrawal, impending DTs. Case discussed with Dr. gutierrez who does accept the admission. - Lab Data Result diagrams: 02/28/21 13:57 02/28/21 13:57 Lab Results 02/28/21 02/28/21 02/28/21 Range/Units 13:57 13:57 13:57 WBC 11.3 H (3.8-10.6) k/uL RBC 5.38 (4.30-5.90) m/uL Hgb 17.6 H (13.0-17.5) gm/dL Hct 49.7 (39.0-53.0) % MCV 92.3 (80.0-100.0) fL MCH 32.7 (25.0-35.0) pg MCHC 35.5 (31.0-37.0) g/dL RDW 13.7 (11.5-15.5) % Plt Count 270 (150-450) k/uL MPV 8.1 Neutrophils % 80 % Lymphocytes % 13 % Monocytes % 5 % Eosinophils % 0 % Basophils % 1 % Neutrophils # 9.0 H (1.3-7.7) k/uL Lymphocytes # 1.5 (1.0-4.8) k/uL Monocytes # 0.6 (0-1.0) k/uL Eosinophils # 0.0 (0-0.7) k/uL Basophils # 0.1 (0-0.2) k/uL Sodium 140 (137-145) mmol/L Potassium 4.2 (3.5-5.1) mmol/L Chloride 102 (98-107) mmol/L Carbon Dioxide 13 L (22-30) mmol/L Anion Gap 25 mmol/L BUN 10 (9-20) mg/dL Creatinine 0.73 (0.66-1.25) mg/dL Est GFR (CKD-EPI)AfAm >90 (>60 ml/min/1.73 sqM) Est GFR (CKD-EPI)NonAf >90 (>60 ml/min/1.73 sqM) Glucose 201 H (74-99) mg/dL Calcium 9.4 (8.4-10.2) mg/dL Magnesium 1.9 (1.6-2.3) mg/dL Total Bilirubin 0.9 (0.2-1.3) mg/dL AST 47 (17-59) U/L ALT 40 (4-49) U/L Alkaline Phosphatase 104 (38-126) U/L Total Protein 8.2 (6.3-8.2) g/dL Albumin 5.2 H (3.5-5.0) g/dL Lipase 108 (23-300) U/L Urine Color Yellow Urine Appearance Clear (Clear) Urine pH 5.0 (5.0-8.0) Ur Specific [place] 1.022 (1.001-1.035) Urine Protein 1+ H (Negative) Urine Glucose (UA) 2+ H (Negative) Urine Ketones 2+ H (Negative) Urine Blood Negative (Negative) Urine Nitrite Negative (Negative) Urine Bilirubin Negative (Negative) Urine Urobilinogen <2.0 (<2.0) mg/dL Ur Leukocyte Esterase Negative (Negative) Urine RBC <1 (0-5) /hpf Urine WBC 1 (0-5) /hpf Ur Squamous Epith Cells <1 (0-4) /hpf Hyaline Casts 89 H (0-2) /lpf Urine Mucus Few H (None) /hpf Serum Alcohol 139 mg/dL Disposition Clinical Impression: Alcohol withdrawal, Alcoholic ketoacidosis Disposition: ADMITTED IP TO THIS HOSP Is patient prescribed a controlled substance at d/c from ED?: No Time of Disposition: 15:39
[2021-02-28] MEDS ORDERED: THIAMINE 100 MG/ML 2 ML VIAL IM STA (15:40)
[2021-02-28] MEDS ORDERED: LORazepam 2 MG/ML INJ IV PRN (15:40)
[2021-02-28] MEDS: LORazepam 2 MG/ML INJ IV PRN ×3 (16:00→21:25)
[2021-02-28] MEDS: SODIUM CHLORIDE 0.9% 1,000 ML IV SCH ×2 (16:02→21:26)
[2021-02-28] MEDS: THIAMINE 100 MG TAB PO SCH (19:13)
[2021-02-28 20:24] LABS: Glucose,Whole Blood 167 mg/dL (75-99)
[2021-02-28] MEDS: HEPARIN SODIUM,PORCINE/PF 5,000 UNIT/0.5 ML SYRINGE SQ SCH (21:26)
--- NOTE | 2021-02-28 21:30 | P.HPIM ---
History of Present Illness This is a pleasant 35 years old male with past medical history of diabetes mellitus, alcohol abuse. Presents because he wants to quit drinking alcohol, he says he drinks about 1.5 fifth of vodka every day without smoking or illicit drugs. And his last drink was about 10-12 hours prior to admission to the emergency room. Patient feels anxious and shaky however he denies any headache or weakness or numbness. No chest pain or dyspnea or coughing. No abdominal pain. No nausea vomiting or diarrhea. Dysuria or urinary discomfort. No fever. No dizziness. He is tachycardic with heart rate around 120. Rest of vitals are stable. Labs showing mild leukocytosis of 11.3 and hemoglobin of 17, rest of labs are unremarkable including BMP and LFT. On admission he was started on normal saline at 1 30 mL/h. As well as CIWA prot ocol and thiamine He denies any history of depression or suicidal ideation Review of Systems CONSTITUTIONAL: No fever, no malaise, no fatigue. HEENT: No recent visual problems or hearing problems. Denied any sore throat. CARDIOVASCULAR: No orthopnea, PND, no palpitations, no syncope. PULMONARY: No shortness of breath, no cough, no hemoptysis. GASTROINTESTINAL: No diarrhea, no nausea, no vomiting, no abdominal pain. Normoactive bowel sounds. NEUROLOGICAL: No headaches, no weakness, no numbness. HEMATOLOGICAL: Denies any bleeding or petechiae. GENITOURINARY: Denies any burning micturition, frequency, or urgency. MUSCULOSKELETAL/RHEUMATOLOGICAL: Denies any joint pain, swelling, or any muscle pain. ENDOCRINE: Denies any polyuria or polydipsia. Past Medical History Past Medical History: Diabetes Mellitus, Eye Disorder, Hypertension Additional Past Medical History / Comment(s): ETOH abuse, Hx of ETOH withdrawal, Glaucoma, covid 09/2020. History of Any Multi-Drug Resistant Organisms: None Reported Past Surgical History: Ear Surgery Additional Past Surgical History / Comment(s): Bilateral myringotomy/tubes, Past Anesthesia/Blood Transfusion Reactions: No Reported Reaction Past Psychological History: No Psychological Hx Reported Smoking Status: Never smoker Past Alcohol Use History: Abuse, Daily Past Drug Use History: None Reported - Past Family History Father Family Medical History: Diabetes Mellitus Mother Family Medical History: Vascular Disorder Additional Family Medical History / Comment(s): Mother of a brain aneurysm. Medications and Allergies Home Medications Medication Instructions Recorded Confirmed Type Latanoprost/Pf [Latanoprost 0.005% 1 drop BOTH EYES HS 06/10/19 02/28/21 History Eye Drop] amLODIPine [Norvasc] 10 mg PO DAILY 08/15/20 02/28/21 History lisinopriL [Zestril] 5 mg PO DAILY 08/15/20 02/28/21 History metFORMIN HCL [Glucophage] 1,000 mg PO BID 08/15/20 02/28/21 History QUEtiapine [SEROquel] 50 mg PO HS PRN 02/28/21 02/28/21 History Allergies Allergy/AdvReac Type Severity Reaction Status Date / Time No Known Allergies Allergy Verified 02/28/21 15:48 Physical Exam Vitals: Vital Signs Temp Pulse Resp BP Pulse Ox 02/28/21 13:19 98.2 F 144 H 20 153/99 95 Intake and Output 02/28/21 02/28/21 02/28/21 06:59 14:59 22:59 Other: Weight 95.254 kg GENERAL: The patient is alert and oriented x3, not in any acute distress. Well developed, well nourished. HEENT: Pupils are round and equally reacting to light. EOMI. No scleral icterus. No conjunctival pallor. Normocephalic, atraumatic. No pharyngeal erythema. No thyromegaly. CARDIOVASCULAR: S1 and S2 present. No murmurs, rubs, or gallops. PULMONARY: Chest is clear to auscultation, no wheezing or crackles. ABDOMEN: Soft, nontender, nondistended, normoactive bowel sounds. No palpable organomegaly. MUSCULOSKELETAL: No joint swelling or deformity. EXTREMITIES: No cyanosis, clubbing, or pedal edema. NEUROLOGICAL: Gross neurological examination did not reveal any focal deficits. SKIN: No rashes. No petechiae Results CBC & Chem 7: 02/28/21 13:57 02/28/21 13:57 Labs: Abnormal Lab Results - Last 24 Hours (Table) 02/28/21 02/28/21 02/28/21 Range/Units 13:57 13:57 13:57 WBC 11.3 H (3.8-10.6) k/uL Hgb 17.6 H (13.0-17.5) gm/dL Neutrophils # 9.0 H (1.3-7.7) k/uL Carbon Dioxide 13 L (22-30) mmol/L Glucose 201 H (74-99) mg/dL Albumin 5.2 H (3.5-5.0) g/dL Urine Protein 1+ H (Negative) Urine Glucose (UA) 2+ H (Negative) Urine Ketones 2+ H (Negative) Hyaline Casts 89 H (0-2) /lpf Urine Mucus Few H (None) /hpf Assessment and Plan Assessment: Alcohol withdrawal in view of his severe alcohol abuse Diabetes mellitus Leukocytosis, most likely reactive it looks concentrated sample Hypertension Plan: This is a pleasant 35 years old male who presents with alcohol withdrawal Continue with CIWA protocol and thiamine Volume Continue with gentle hydration Continue monitoring telemetry Check chest x-ray Labs and medication were reviewed.. Continue same treatment. Continue with symptomatic treatment. Resume home medication. Monitor lytes and vitals. DVT and GI prophylaxis. Further recommendations depends on the clinical course of the patient DVT prophylaxis: Subcutaneous heparin GI Prophylaxis: Pepcid
--- NOTE | 2021-02-28 21:50 | XR ---
EXAMINATION TYPE: XR chest 1V DATE OF EXAM: 02/28/2021 COMPARISON: 11/17/2020 HISTORY: Alcohol withdrawal TECHNIQUE: Single view FINDINGS: Heart and mediastinum are normal. Lungs are clear. Diaphragm is normal. Bony thorax is inta ct. Pulmonary vascularity is normal. There are chest leads. IMPRESSION: Normal chest. No change.
[2021-03-01] MEDS: THIAMINE 100 MG TAB PO SCH ×2 (05:37→16:12)
[2021-03-01] MEDS: SODIUM CHLORIDE 0.9% 1,000 ML IV SCH ×2 (05:37→15:19)
[2021-03-01 06:22] LABS: Glucose,Whole Blood 113 mg/dL (75-99)
[2021-03-01 06:36] LABS: Basophils % (A) 0 %; Eosinophils # (A) 0.1 k/uL (0-0.7); Eosinophils % (A) 1 %; HCT 39.2 % (39.0-53.0); Lymphocytes % (A) 19 %; MCH 32.6 pg (25.0-35.0); MCHC 35.3 g/dL (31.0-37.0); MCV 92.1 fL (80.0-100.0); Mean Platelet Volume 8.3; Monocytes # (A) 0.4 k/uL (0-1.0); Monocytes % (A) 7 %; Neutrophils % (A) 73 %; Platelet Count 148 k/uL (150-450); RBC 4.26 m/uL (4.30-5.90); RDW 13.6 % (11.5-15.5); WBC 5.6 k/uL (3.8-10.6)
[2021-03-01 06:43] LABS: HGB 13.9 gm/dL (13.0-17.5)
[2021-03-01 06:49] LABS: African American GFR (CKD) >90 (>60 ml/min/1.73 sqM); Anion Gap 7 mmol/L; Blood Urea Nitrogen 10 mg/dL (9-20); Calcium 8.2 mg/dL (8.4-10.2); Carbon Dioxide 25 mmol/L (22-30); Chloride 103 mmol/L (98-107); Glucose 110 mg/dL (74-99); Magnesium 1.6 mg/dL (1.6-2.3); Non-African American GFR(CKD) >90 (>60 ml/min/1.73 sqM); Potassium 3.6 mmol/L (3.5-5.1); Sodium 135 mmol/L (137-145)
[2021-03-01] MEDS: HEPARIN SODIUM,PORCINE/PF 5,000 UNIT/0.5 ML SYRINGE SQ SCH ×2 (08:17→20:55)
[2021-03-01] MEDS ORDERED: diazePAM 5 MG TAB PO SCH (09:00)
[2021-03-01] MEDS ORDERED: FAMOTIDINE 20 MG/2 ML VIAL IV SCH (09:00)
[2021-03-01 11:49] LABS: Glucose,Whole Blood 139 mg/dL (75-99)
[2021-03-01] MEDS ORDERED: MAGNESIUM SULFATE-D5W PMX 1 GM in DEXTROSE/WATER 1 100ML.BAG IVPB ONE (15:10)
--- NOTE | 2021-03-01 15:14 | P.PN ---
Subjective This is a pleasant 35 years old male with past medical history of diabetes mellitus, alcohol abuse. Presents because he wants to quit drinking alcohol, he says he drinks about 1.5 fifth of vodka every day without smoking or illicit drugs. And his last drink was about 10-12 hours prior to admission to the emergency room. Patient feels anxious and shaky however he denies any headache or weakness or numbness. No chest pain or dyspnea or coughing. No abdominal pain. No nausea vomiting or diarrhea. Dysuria or urinary discomfort. No fever. No dizziness. He is tachycardic with heart rate around 120. Rest of vitals are stable. Labs showing mild leukocytosis of 11.3 and hemoglobin of 17, rest of labs are unremarkable including BMP and LFT. On admission he was started on normal saline at 1 30 mL/h. As well as CIWA protocol and thiamine He denies any history of depression or suicidal ideation 03/01/2021 Patient still with alcohol withdrawal signs and symptoms, still needs benzodiazepine however we start tapering his volume down to 2 mg twice a day Her chest x-ray: Normal chest EKG showed normal sinus rhythm at [address]-T changes and QTC is 477. Labs from today are unremarkable. Low-normal magnesium replaced Objective - Vital Signs Vital signs: Vital Signs Temp 98.1 F 03/01/21 07:59 Pulse 65 03/01/21 11:10 Resp 16 03/01/21 11:10 BP 147/88 03/01/21 11:10 Pulse Ox 96 03/01/21 11:10 Intake & Output 02/28/21 03/01/21 03/01/21 18:59 06:59 18:59 Intake Total 600 240 Output Total 700 Balance -100 240 Weight 95.254 kg 95.5 kg Intake: Intake, IV Titration 360 Amount Sodium Chloride 0.9% 1, 360 000 ml @ 130 mls/hr IV . [id number] [facility] Rx#:[id number] Oral 240 240 Output: Urine 700 Other: # Voids 1 - Exam GENERAL: The patient is alert and oriented x3, not in any acute distress. Well developed, well nourished. HEENT: Pupils are round and equally reacting to light. EOMI. No scleral icterus. No conjunctival pallor. Normocephalic, atraumatic. No pharyngeal erythema. No thyromegaly. CARDIOVASCULAR: S1 and S2 present. No murmurs, rubs, or gallops. PULMONARY: Chest is clear to auscultation, no wheezing or crackles. ABDOMEN: Soft, nontender, nondistended, normoactive bowel sounds. No palpable organomegaly. MUSCULOSKELETAL: No joint swelling or deformity. EXTREMITIES: No cyanosis, clubbing, or pedal edema. NEUROLOGICAL: Gross neurological examination did not reveal any focal deficits. SKIN: No rashes. no petechiae. - Labs CBC & Chem 7: 03/01/21 06:07 03/01/21 06:07 Labs: Abnormal Lab Results - Last 24 Hours (Table) 02/28/21 03/01/21 03/01/21 Range/Units 20:20 06:07 06:07 RBC 4.26 L (4.30-5.90) m/uL Plt Count 148 L (150-450) k/uL Sodium 135 L (137-145) mmol/L Creatinine 0.59 L (0.66-1.25) mg/dL Glucose 110 H (74-99) mg/dL POC Glucose (mg/dL) 167 H (75-99) mg/dL Calcium 8.2 L (8.4-10.2) mg/dL 03/01/21 03/01/21 Range/Units 06:21 11:47 RBC (4.30-5.90) m/uL Plt Count (150-450) k/uL Sodium (137-145) mmol/L Creatinine (0.66-1.25) mg/dL Glucose (74-99) mg/dL POC Glucose (mg/dL) 113 H 139 H (75-99) mg/dL Calcium (8.4-10.2) mg/dL Assessment and Plan Assessment: Alcohol withdrawal in view of his severe alcohol abuse Diabetes mellitus Leukocytosis, most likely reactive it looks concentrated sample Hypertension Plan: This is a pleasant 35 years old male who presents with alcohol withdrawal Continue with CIWA protocol and thiamine Volume Continue with gentle hydration Continue monitoring telemetry Check chest x-ray Labs and medication were reviewed.. Continue same treatment. Continue with symptomatic treatment. Resume home medication. Monitor lytes and vitals. DVT and GI prophylaxis. Further recommendations depends on the clinical course of the patient DVT prophylaxis: Subcutaneous heparin GI Prophylaxis: Pepcid
[2021-03-01 16:34] LABS: Glucose,Whole Blood 131 mg/dL (75-99)
[2021-03-01 19:51] VITALS: RESP 18
[2021-03-01 20:39] LABS: Glucose,Whole Blood 113 mg/dL (75-99)
[2021-03-01] MEDS: diazePAM 2 MG TAB PO SCH (20:55)
[2021-03-01] MEDS: FAMOTIDINE 20 MG TAB PO SCH (20:55)
[2021-03-01] MEDS: LORazepam 2 MG/ML INJ IV PRN (23:02)
[2021-03-02] MEDS: SODIUM CHLORIDE 0.9% 1,000 ML IV SCH ×3 (03:13→08:32)
[2021-03-02 06:09] LABS: Glucose,Whole Blood 98 mg/dL (75-99)
[2021-03-02] MEDS: THIAMINE 100 MG TAB PO SCH (06:50)
[2021-03-02] MEDS: HEPARIN SODIUM,PORCINE/PF 5,000 UNIT/0.5 ML SYRINGE SQ SCH (08:31)
[2021-03-02] MEDS: diazePAM 2 MG TAB PO SCH (08:31)
[2021-03-02] MEDS: FAMOTIDINE 20 MG TAB PO SCH (08:31)
[2021-03-02 11:27] LABS: Glucose,Whole Blood 125 mg/dL (75-99)
[2021-03-02 12:47] VITALS: BP 153/100; PULSE 79; TEMP 97.6
== END 2021-03-02 16:30 | disposition home or self-care (01) | DRG 897 ==
LOC: EC 13:00 → 3SCARD 16:28
PROVIDERS: ADMIT Internal Medicine; ATTEND Internal Medicine
DX: F10.239 Alcohol dependence with withdrawal, unspecified (principal); E87.2 Acidosis; D72.829 Elevated white blood cell count, unspecified; E11.9 Type 2 diabetes mellitus without complications; I10 Essential (primary) hypertension; Y90.6 Blood alcohol level of 120-199 mg/100 ml; Z79.84 Long term (current) use of oral hypoglycemic drugs; Z79.899 Other long term (current) drug therapy; Z83.3 Family history of diabetes mellitus; R00.0 Tachycardia, unspecified; H40.9 Unspecified glaucoma
CPT/HCPCS: 36415; 71045; 80048; 80053; 80320; 81001; 83690; 83735; 85025; 87635; 96361; 96372; 96374; 96375; 96376; 99285

== ENCOUNTER 2021-09-28 09:03 | Inpatient (IN) | payer OTHER ==
[2021-09-28] MEDS ORDERED: LORazepam 2 MG/ML INJ IV STA (09:41)
[2021-09-28] MEDS ORDERED: THIAMINE 100 MG/ML 2 ML VIAL IM STA (09:41)
[2021-09-28] MEDS ORDERED: SODIUM CHLORIDE 0.9% 1,000 ML IV STA (09:41)
[2021-09-28] MEDS ORDERED: FAMOTIDINE 20 MG/2 ML VIAL IV STA (09:42)
[2021-09-28] MEDS ORDERED: ONDANSETRON 4 MG/2 ML VIAL IVP STA (09:42)
--- NOTE | 2021-09-28 09:44 | ED ---
General Adult HPI - General Chief complaint: Alcohol Stated complaint: ETOH Time Seen by Provider: 09/28/21 09:28 Source: patient, RN notes reviewed Mode of arrival: ambulatory Limitations: no limitations - History of Present Illness Initial comments: Patient is a pleasant 36-year-old male presenting to the emergency department with concerns for alcohol withdrawal. Patient normally drinks around a fifth and a half of vodka daily. Patient has been doing this approximately 15 years. Patient last intake was around 12 hours ago. Patient feels nauseated and did vomit once. Patient feels shaky and lightheaded. - Related Data Home Medications Medication Instructions Recorded Confirmed Latanoprost/Pf [Latanoprost 0.005% 1 drop BOTH EYES HS 06/10/19 09/28/21 Eye Drop] amLODIPine [Norvasc] 10 mg PO DAILY 08/15/20 09/28/21 metFORMIN HCL [Glucophage] 1,000 mg PO BID 08/15/20 09/28/21 QUEtiapine FUMARATE [SEROquel XR] 50 mg PO HS 09/28/21 09/28/21 lisinopriL [Zestril] 20 mg PO DAILY 09/28/21 09/28/21 Allergies Allergy/AdvReac Type Severity Reaction Status Date / Time No Known Allergies Allergy Verified 09/28/21 09:22 Review of Systems ROS Statement: Those systems with pertinent positive or pertinent negative responses have been documented in the HPI. ROS Other: All systems not noted in ROS Statement are negative. Constitutional: Denies: fever Eyes: Denies: eye pain ENT: Denies: ear pain Respiratory: Denies: cough, dyspnea Cardiovascular: Denies: chest pain Endocrine: Denies: fatigue Gastrointestinal: Reports: nausea, vomiting. Denies: abdominal pain Genitourinary: Denies: dysuria Musculoskeletal: Denies: back pain Skin: Denies: rash Neurological: Denies: headache, weakness Psychiatric: Denies: depression, suicidal thoughts Past Medical History Past Medical History: Diabetes Mellitus, Eye Disorder, Hypertension Additional Past Medical History / Comment(s): ETOH abuse, Hx of ETOH withdrawal, Glaucoma, covid 09/2020. History of Any Multi-Drug Resistant Organisms: None Reported Past Surgical History: Ear Surgery Additional Past Surgical History / Comment(s): Bilateral myringotomy/tubes, Past Anesthesia/Blood Transfusion Reactions: No Reported Reaction Past Psychological History: No Psychological Hx Reported Smoking Status: Never smoker Past Alcohol Use History: Abuse, Daily Past Drug Use History: None Reported - Past Family History Father Family Medical History: Diabetes Mellitus Mother Family Medical History: Vascular Disorder Additional Family Medical History / Comment(s): Mother of a brain aneurysm. General Exam Limitations: no limitations General appearance: alert, other (Mild tremor is noted) Head exam: Present: normocephalic Eye exam: Present: normal appearance Neck exam: Present: normal inspection Respiratory exam: Present: normal lung sounds bilaterally Cardiovascular Exam: Present: tachycardia GI/Abdominal exam: Present: soft. Absent: tenderness Extremities exam: Present: normal inspection. Absent: pedal edema, calf tenderness Neurological exam: Present: alert Psychiatric exam: Present: normal affect, normal mood Skin exam: Present: normal color Course Vital Signs 09/28/21 09/28/21 09:19 11:02 Temperature 97.2 F L Pulse Rate 146 H 99 Respiratory 18 14 Rate Blood Pressure 147/107 144/87 O2 Sat by Pulse 95 97 Oximetry EKG Findings - EKG Comments: EKG Findings:: Sinus tach. 131. SC 147. QRS 89. QT 291. QTC is 68. Right axis. Normal QRS. No acute ST change. Medical Decision Making - Medical Decision Making Patient reevaluated and updated. Case discussed with Dr. Horn, who will admit covering hospital call. - Lab Data Result diagrams: 09/28/21 09:41 09/28/21 09:41 Lab Results 09/28/21 09/28/21 09/28/21 Range/Units 09:41 09:41 09:59 WBC 12.4 H (3.8-10.6) k/uL RBC 5.71 (4.30-5.90) m/uL Hgb 17.9 H (13.0-17.5) gm/dL Hct 53.2 H (39.0-53.0) % MCV 93.2 (80.0-100.0) fL MCH 31.4 (25.0-35.0) pg MCHC 33.7 (31.0-37.0) g/dL RDW 13.4 (11.5-15.5) % Plt Count 465 H (150-450) k/uL MPV 8.4 Neutrophils % 65 % Lymphocytes % 28 % Monocytes % 4 % Eosinophils % 1 % Basophils % 1 % Neutrophils # 8.1 H (1.3-7.7) k/uL Lymphocytes # 3.5 (1.0-4.8) k/uL Monocytes # 0.5 (0-1.0) k/uL Eosinophils # 0.1 (0-0.7) k/uL Basophils # 0.1 (0-0.2) k/uL PT 11.1 (9.0-12.0) sec INR 1.0 (<1.2) Sodium 142 (137-145) mmol/L Potassium 4.8 (3.5-5.1) mmol/L Chloride 102 (98-107) mmol/L Carbon Dioxide 8 L* (22-30) mmol/L Anion Gap 32 mmol/L BUN 8 L (9-20) mg/dL Creatinine 0.93 (0.66-1.25) mg/dL Est GFR (CKD-EPI)AfAm >90 (>60 ml/min/1.73 sqM) Est GFR (CKD-EPI)NonAf >90 (>60 ml/min/1.73 sqM) Glucose 178 H (74-99) mg/dL Calcium 9.2 (8.4-10.2) mg/dL Magnesium 2.0 (1.6-2.3) mg/dL Total Bilirubin 0.8 (0.2-1.3) mg/dL AST 61 H (17-59) U/L ALT 64 H (4-49) U/L Alkaline Phosphatase 117 (38-126) U/L Total Protein 9.1 H (6.3-8.2) g/dL Albumin 5.4 H (3.5-5.0) g/dL Amylase 71 (30-110) U/L Lipase 142 (23-300) U/L Serum Alcohol 277 H* mg/dL Disposition Clinical Impression: Alcohol withdrawal Disposition: ADMITTED IP TO THIS HOSP Is patient prescribed a controlled substance at d/c from ED?: No Referrals: None,Stated [Primary Care Provider] - 1-2 days Time of Disposition: 11:22
[2021-09-28 10:13] LABS: Basophils # (A) 0.1 k/uL (0-0.2); Basophils % (A) 1 %; Eosinophils # (A) 0.1 k/uL (0-0.7); Eosinophils % (A) 1 %; HCT 53.2 % (39.0-53.0); HGB 17.9 gm/dL (13.0-17.5); Lymphocytes # (A) 3.5 k/uL (1.0-4.8); Lymphocytes % (A) 28 %; MCH 31.4 pg (25.0-35.0); MCHC 33.7 g/dL (31.0-37.0); MCV 93.2 fL (80.0-100.0); Mean Platelet Volume 8.4; Monocytes # (A) 0.5 k/uL (0-1.0); Monocytes % (A) 4 %; Neutrophils # (A) 8.1 k/uL (1.3-7.7); Neutrophils % (A) 65 %; Platelet Count 465 k/uL (150-450); RBC 5.71 m/uL (4.30-5.90); RDW 13.4 % (11.5-15.5); WBC 12.4 k/uL (3.8-10.6)
[2021-09-28 10:32] LABS: ALT 64 U/L (4-49); AST 61 U/L (17-59); African American GFR (CKD) >90 (>60 ml/min/1.73 sqM); Albumin 5.4 g/dL (3.5-5.0); Alkaline Phosphatase 117 U/L (38-126); Amylase 71 U/L (30-110); Anion Gap 32 mmol/L; Blood Urea Nitrogen 8 mg/dL (9-20); Calcium 9.2 mg/dL (8.4-10.2); Chloride 102 mmol/L (98-107); Glucose 178 mg/dL (74-99); Lipase 142 U/L (23-300); Non-African American GFR(CKD) >90 (>60 ml/min/1.73 sqM); Potassium 4.8 mmol/L (3.5-5.1); Sodium 142 mmol/L (137-145); Total Bilirubin 0.8 mg/dL (0.2-1.3); Total Protein 9.1 g/dL (6.3-8.2)
[2021-09-28 10:46] LABS: Alcohol 277 mg/dL; Carbon Dioxide 8 mmol/L (22-30)
[2021-09-28] MEDS ORDERED: ACETAMINOPHEN TAB 500 MG TAB PO STA (10:49)
[2021-09-28 11:01] LABS: Prothrombin Time 11.1 sec (9.0-12.0)
[2021-09-28] MEDS ORDERED: ONDANSETRON 4 MG/2 ML VIAL IVP PRN (11:23)
[2021-09-28] MEDS ORDERED: LORazepam 2 MG/ML INJ IV PRN ×3 (11:23)
[2021-09-28] MEDS ORDERED: NALOXONE 0.4 MG/ML 1 ML VIAL IV PRN (11:23)
[2021-09-28] MEDS ORDERED: SODIUM CHLORIDE 0.9% 1,000 ML IV SCH (11:30)
[2021-09-28] MEDS: LORazepam 2 MG/ML INJ IV PRN ×5 (12:39→23:11)
[2021-09-28] MEDS ORDERED: LACTATED RINGERS 1,000 ML IV SCH (15:00)
[2021-09-28 16:43] LABS: Glucose,Whole Blood 124 mg/dL (75-99)
[2021-09-28] MEDS: INSULIN ASPART (NovoLOG) 100 UNIT/ML VIAL SQ SCH ×2 (16:48→19:23)
[2021-09-28] MEDS: THIAMINE 100 MG TAB PO SCH (16:52)
[2021-09-28] MEDS: HEPARIN SODIUM,PORCINE/PF 5,000 UNIT/0.5 ML SYRINGE SQ SCH ×2 (16:52→23:05)
[2021-09-28] MEDS: CALCIUM CARBONATE 500 MG CHEWABLE PO PRN (18:30)
[2021-09-28 19:17] LABS: Glucose,Whole Blood 139 mg/dL (75-99)
[2021-09-28] MEDS: FAMOTIDINE 20 MG TAB PO SCH (19:23)
[2021-09-28] MEDS: QUEtiapine 25 MG TAB PO SCH (19:23)
[2021-09-28] MEDS ORDERED: ACETAMINOPHEN TAB 325 MG TAB PO PRN (19:24)
[2021-09-28] MEDS ORDERED: SODIUM CHLORIDE 0.9% 500 ML 500 ML IV ONE (19:25)
[2021-09-28] MEDS ORDERED: LATANOPROST 0.005% OPHTH DROPS 2.5 ML BTL BOTH EYES SCH (21:00)
[2021-09-28] MEDS: SODIUM CHLORIDE 0.9% 1,000 ML IV SCH ×2 (21:12→23:02)
--- NOTE | 2021-09-29 00:16 | P.HPIM ---
History of Present Illness H&P Date: 09/28/21 Chief Complaint: Acute alcohol intoxication Patient is a 36-year-old male with a known history of diabetes type 2 [id number], hypertension, bilateral peripheral neuropathy diabetic, severe alcohol abuse and previous history of withdrawal symptoms, bilateral glaucoma presents to ER due to alcohol withdrawal symptoms. Patient states that he did quit alcohol and started back again few days ago. Normally drinks about fifth and half of vodka daily. Denies any complaints of chest pain abdominal pain. No shortness of breath. Denies any dizziness. Patient felt slightly lightheaded. No fever no chills. No cough or sputum production. No other recent illnesses. EKG showed sinus tachycardia Lab data showed WBC 12.4 hemoglobin 17.9 and platelets 465 Sodium 142 potassium 4.2 chloride 102 bicarb is 8 anion gap 32 BUN 8 and creatinine 0.93. AST 61 ALT is 64 alk phos 417 albumin 5.4 serum alcohol level is 277 lipase level is 142 Review of Systems Constitutional: Patient denies any fever or chills . No generalized weakness or weight loss. Abdomen: Patient denied nausea vomiting and diarrhea and abdominal pain. Cardiovascular: Patient denies any chest pain or short of breath no palpitations. Respiratory: patient denied any cough is from production. No shortness of breath Neurologic: Patient denied any numbness or tingling headache. Musculoskeletal: Patient denies any complaints of joint swelling or deformity. Skin: Negative Psychiatric: Negative Endocrine: No heat or cold intolerance. No recent weight gain. Genitourinary: No dysuria or hematuria. All other 14 point ROS negative except the above Past Medical History Past Medical History: Diabetes Mellitus, Eye Disorder, Hypertension Additional Past Medical History / Comment(s): NIDDM type II, neuropathy bilateral feet, ETOH abuse, Hx of ETOH withdrawal, bilateral glaucoma, covid 09/2020 and once more. History of Any Multi-Drug Resistant Organisms: None Reported Past Surgical History: Ear Surgery Additional Past Surgical History / Comment(s): Bilateral myringotomy/tubes, Past Anesthesia/Blood Transfusion Reactions: No Reported Reaction Smoking Status: Never smoker - Past Family History Father Family Medical History: Diabetes Mellitus Mother Family Medical History: Vascular Disorder Additional Family Medical History / Comment(s): Mother of a brain aneurysm. Medications and Allergies Home Medications Medication Instructions Recorded Confirmed Type Latanoprost/Pf [Latanoprost 0.005% 1 drop BOTH EYES HS 06/10/19 09/28/21 History Eye Drop] amLODIPine [Norvasc] 10 mg PO DAILY 08/15/20 09/28/21 History metFORMIN HCL [Glucophage] 1,000 mg PO BID 08/15/20 09/28/21 History QUEtiapine FUMARATE [SEROquel XR] 50 mg PO HS 09/28/21 09/28/21 History lisinopriL [Zestril] 20 mg PO DAILY 09/28/21 09/28/21 History Allergies Allergy/AdvReac Type Severity Reaction Status Date / Time No Known Allergies Allergy Verified 09/28/21 09:22 Physical Exam Vitals: Vital Signs Temp Pulse Pulse Resp BP BP Pulse Ox 09/28/21 14:00 98.4 F 131 H 18 145/94 98 09/28/21 11:02 99 14 144/87 97 09/28/21 09:19 97.2 F L 146 H 18 147/107 95 Intake and Output 09/27/21 09/28/21 09/28/21 22:59 06:59 14:59 Other: Weight 99.79 kg PHYSICAL EXAMINATION: Patient is lying in the bed comfortably, no acute distress, awake alert and oriented.. HEENT: Normocephalic. Neck is supple. Pupils reactive. Nostrils clear. Oral cavi ty is moist. Neck reveals no JVD, carotid bruits, or thyromegaly. CHEST EXAMINATION: Trachea is central. Symmetrical expansion. Lung pollard clear to auscultation and percussion. CARDIAC: Normal S1, S2 with no gallops. No murmurs ABDOMEN: Soft. Bowel sounds normal. No organomegaly. No abdominal bruits. Extremities: reveal no edema. No clubbing or cyanosis Neurologically awake, alert, oriented x3 with well-coordinated movements. No focal deficits noted Skin: No rash or skin lesions. Psychiatric: Coperative. Nonsuicidal Musculoskeletal: No joint swelling or deformity. Normal range of motion. Results CBC & Chem 7: 09/28/21 09:41 09/28/21 09:41 Labs: Abnormal Lab Results - Last 24 Hours (Table) 09/28/21 09/28/21 Range/Units 09:41 09:41 WBC 12.4 H (3.8-10.6) k/uL Hgb 17.9 H (13.0-17.5) gm/dL Hct 53.2 H (39.0-53.0) % Plt Count 465 H (150-450) k/uL Neutrophils # 8.1 H (1.3-7.7) k/uL Carbon Dioxide 8 L* (22-30) mmol/L BUN 8 L (9-20) mg/dL Glucose 178 H (74-99) mg/dL AST 61 H (17-59) U/L ALT 64 H (4-49) U/L Total Protein 9.1 H (6.3-8.2) g/dL Albumin 5.4 H (3.5-5.0) g/dL Serum Alcohol 277 H* mg/dL Thrombosis Risk Factor Assmnt - DVT/VTE Prophylaxis DVT/VTE Prophylaxis: Pharmacologic Prophylaxis ordered - Choose All That Apply Any of the Below Risk Factors Present?: Yes Each Factor Represents 1 point: Age 41-60 years, Obesity (BMI >25) Other Risk Factors: No Other congenital or acquired thrombophilia - If yes, enter type in comment: No Thrombosis Risk Factor Assessment Total Risk Factor Score: 2 Thrombosis Risk Factor Assessment Level: Low Risk Assessment and Plan Assessment: Acute alcohol intoxication with level 277 Severe anion gap metabolic acidosis due to EtOH and lactic acidosis Diabetes type 2 [id number] Severe alcohol abuse History of EtOH withdrawal symptoms previously COVID-19 in September 2020 Diabetic peripheral neuropathy History of glaucoma DVT prophylaxis with heparin subcu Plan: Patient will be continued on IV hydration changed to Ringer's lactate and monitor lactic acid level. Continued IV hydration and monitor for alcohol withdrawal symptoms. Continues insulin sliding scale and current with home medications. Fall precautions and seizure precautions.. Time with Patient: Greater than 30
[2021-09-29 03:08] VITALS: TEMP 98.8
[2021-09-29] MEDS: LORazepam 2 MG/ML INJ IV PRN (05:33)
[2021-09-29 06:49] LABS: Glucose,Whole Blood 105 mg/dL (75-99)
[2021-09-29] MEDS: INSULIN ASPART (NovoLOG) 100 UNIT/ML VIAL SQ SCH ×2 (07:20→11:33)
[2021-09-29 08:29] VITALS: BP 145/81; PULSE 87; RESP 18
[2021-09-29] MEDS ORDERED: PANTOPRAZOLE 40 MG/10 ML VIAL IV SCH (09:00)
[2021-09-29] MEDS: QUEtiapine 25 MG TAB PO SCH (09:18)
[2021-09-29] MEDS: HEPARIN SODIUM,PORCINE/PF 5,000 UNIT/0.5 ML SYRINGE SQ SCH (09:18)
[2021-09-29] MEDS: FAMOTIDINE 20 MG TAB PO SCH (09:18)
[2021-09-29] MEDS: THIAMINE 100 MG TAB PO SCH (09:18)
[2021-09-29] MEDS: SODIUM CHLORIDE 0.9% 1,000 ML IV SCH ×2 (09:23→12:45)
[2021-09-29 11:21] LABS: Glucose,Whole Blood 106 mg/dL (75-99)
[2021-09-29 11:29] LABS: Basophils # (A) 0.02 X 10*3/uL (0.00-0.10); Basophils % (A) 0.4 %; Eosinophils # (A) 0.06 X 10*3/uL (0.04-0.35); Eosinophils % (A) 1.2 %; HCT 37.1 % (39.6-50.0); HGB 12.6 g/dL (13.0-17.0); Immature Grans, Automated 0.4 %; Lymphocytes # (A) 0.93 X 10*3/uL (0.90-5.00); Lymphocytes % (A) 18.8 %; MCH 30.4 pg (27.0-32.0); MCV 89.4 fL (80.0-97.0); Mean Platelet Volume 11.3 fL (9.5-12.2); Monocytes # (A) 0.39 X 10*3/uL (0.20-1.00); Monocytes % (A) 7.9 %; NRBC Per 100 WBC 0 /100 WBCS (0.0-0.0); Neutrophils # (A) 3.53 X 10*3/uL (1.80-7.70); Neutrophils % (A) 71.3 %; Platelet Count 142 X 10*3/uL (140-440); RBC 4.15 X 10*6/uL (4.40-5.60); RDW 13.3 % (11.5-14.5); WBC 4.95 X 10*3/uL (4.50-10.00)
[2021-09-29 11:36] LABS: African American GFR (CKD) 138.7 (60.0-200.0); Anion Gap 6.5 mmol/L (10.00-18.00); Calcium 8.1 mg/dL (8.7-10.3); Carbon Dioxide 25.5 mmol/L (20.0-27.5); Non-African American GFR(CKD) 119.7 (60.0-200.0); Potassium 3.4 mmol/L (3.5-5.5)
[2021-09-29] MEDS ORDERED: POTASSIUM CHLORIDE ER 20 MEQ TAB.ER PO STA (12:37)
[2021-09-29] MEDS: CALCIUM CARBONATE 500 MG CHEWABLE PO PRN (13:13)
== END 2021-09-29 14:28 | disposition home or self-care (01) | DRG 897 ==
LOC: EC 09:03 → 4SSUR 11:23
PROVIDERS: ADMIT Internal Medicine; ATTEND Internal Medicine
DX: F10.239 Alcohol dependence with withdrawal, unspecified (principal); E87.2 Acidosis; F10.229 Alcohol dependence with intoxication, unspecified; E11.42 Type 2 diabetes mellitus with diabetic polyneuropathy; I10 Essential (primary) hypertension; Y90.8 Blood alcohol level of 240 mg/100 ml or more; Z79.4 Long term (current) use of insulin; Z79.84 Long term (current) use of oral hypoglycemic drugs; Z79.899 Other long term (current) drug therapy; Z83.3 Family history of diabetes mellitus; Z86.16 Personal history of COVID-19; Z98.890 Other specified postprocedural states; Z82.49 Family history of ischemic heart disease and other diseases of the circulatory system; H40.9 Unspecified glaucoma
CPT/HCPCS: 36415; 80048; 80053; 80320; 82150; 83605; 83690; 83735; 85025; 85610; 93005; 96361; 96372; 96374; 96375; 96376; 99285

== ENCOUNTER 2021-11-30 17:01 | Observation (INO) | payer OTHER ==
[2021-11-30] MEDS ORDERED: ONDANSETRON 4 MG/2 ML VIAL IVP STA (17:28)
[2021-11-30] MEDS ORDERED: diphenhydrAMINE 50 MG/ML 1 ML VIAL IVP STA (17:28)
[2021-11-30] MEDS ORDERED: SODIUM CHLORIDE 0.9% 1,000 ML IV STA ×2 (17:28→18:34)
[2021-11-30] MEDS ORDERED: PHENobarbital SODIUM 130 MG/ML 1 ML VIAL IV STA (17:30)
[2021-11-30 17:59] LABS: Basophils # (A) 0.1 k/uL (0-0.2); Basophils % (A) 1 %; Eosinophils % (A) 0 %; HCT 47.2 % (39.0-53.0); HGB 16.3 gm/dL (13.0-17.5); Lymphocytes # (A) 1.4 k/uL (1.0-4.8); Lymphocytes % (A) 13 %; MCH 31.6 pg (25.0-35.0); MCHC 34.5 g/dL (31.0-37.0); MCV 91.4 fL (80.0-100.0); Mean Platelet Volume 8.7; Monocytes # (A) 0.4 k/uL (0-1.0); Monocytes % (A) 4 %; Neutrophils # (A) 8.5 k/uL (1.3-7.7); Neutrophils % (A) 81 %; Platelet Count 256 k/uL (150-450); RBC 5.16 m/uL (4.30-5.90); RDW 14.4 % (11.5-15.5); WBC 10.5 k/uL (3.8-10.6)
[2021-11-30] MEDS ORDERED: MAG HYDROX/AL HYDROX/SIMETH 30 ML, HYOSCYAMINE ELIXIR 10 ML, LIDOCAINE VISCOUS 2% 10 ML PO STA ×3 (18:05)
[2021-11-30] MEDS ORDERED: FAMOTIDINE 20 MG/2 ML VIAL IV STA (18:05)
[2021-11-30 18:08] LABS: ALT 39 U/L (4-49); AST 43 U/L (17-59); African American GFR (CKD) >90 (>60 ml/min/1.73 sqM); Alcohol 50 mg/dL; Alkaline Phosphatase 87 U/L (38-126); Amylase 62 U/L (30-110); Anion Gap 21 mmol/L; Blood Urea Nitrogen 8 mg/dL (9-20); Calcium 9.1 mg/dL (8.4-10.2); Carbon Dioxide 17 mmol/L (22-30); Chloride 103 mmol/L (98-107); Glucose 157 mg/dL (74-99); Lipase 99 U/L (23-300); Non-African American GFR(CKD) >90 (>60 ml/min/1.73 sqM); Potassium 3.8 mmol/L (3.5-5.1); Sodium 141 mmol/L (137-145); Total Protein 7.9 g/dL (6.3-8.2)
--- NOTE | 2021-11-30 18:13 | ED ---
General Adult HPI - General Chief complaint: Nausea/Vomiting/Diarrhea Stated complaint: Withdrawl Time Seen by Provider: 11/30/21 17:20 Source: patient, RN notes reviewed, old records reviewed Mode of arrival: ambulatory Limitations: no limitations - History of Present Illness Initial comments: Patient is a 36-year-old male with past medical history remarkable for daily alcohol use, [id number] diabetes, hypertension, alcohol withdrawals presents emergency Department complaining of 14 hour history of nausea as well as nonbilious nonbloody emesis. Denies any abdominal pain. Last drink was 14 hours ago. Denies any chest pain, shortness of breath. Denies any diarrhea. Denies any abdominal pain. His no other acute complaints at this time. Has been admitted here multiple times for alcohol withdrawal. Does endorse tremors as well as some tongue shaking. States he feels dehydrated. Believes he requires admission at this time. - Related Data Home Medications Medication Instructions Recorded Confirmed Latanoprost/Pf [Latanoprost 0.005% 1 drop BOTH EYES HS 06/10/19 11/30/21 Eye Drop] amLODIPine [Norvasc] 10 mg PO DAILY 08/15/20 11/30/21 metFORMIN HCL [Glucophage] 1,000 mg PO BID 08/15/20 11/30/21 QUEtiapine FUMARATE [SEROquel XR] 50 mg PO HS 09/28/21 11/30/21 lisinopriL [Zestril] 20 mg PO DAILY 09/28/21 11/30/21 Multivitamin [Multivitamins Adult 1 tab PO DAILY 11/30/21 11/30/21 Gummies] Previous Rx's Medication Instructions Recorded Thiamine [Vitamin B-1] 100 mg PO DAILY #30 tab 09/29/21 Allergies Allergy/AdvReac Type Severity Reaction Status Date / Time No Known Allergies Allergy Verified 11/30/21 18:23 Review of Systems ROS Statement: Those systems with pertinent positive or pertinent negative responses have been documented in the HPI. Review of Systems: CONST: Denies fever EYES: Denies blurry vision ENT: Denies nasal congestion C/V: Denies Chest pain RESP: Denies shortness of breath GI: Endorses nausea : Denies dysuria SKIN: Denies rash. MSK: Denies joint pain. NEURO: Denies headache ROS Other: All systems not noted in ROS Statement are negative. Past Medical History Past Medical History: Diabetes Mellitus, Eye Disorder, Hypertension Additional Past Medical History / Comment(s): NIDDM type II, neuropathy bilateral feet, ETOH abuse, Hx of ETOH withdrawal, bilateral glaucoma, covid 09/2020 and once more. History of Any Multi-Drug Resistant Organisms: None Reported Past Surgical History: Ear Surgery Additional Past Surgical History / Comment(s): Bilateral myringotomy/tubes, Past Anesthesia/Blood Transfusion Reactions: No Reported Reaction Past Psychological History: No Psychological Hx Reported Smoking Status: Never smoker Past Alcohol Use History: Abuse, Daily, Heavy Past Drug Use History: None Reported - Past Family History Father Family Medical History: Diabetes Mellitus Mother Family Medical History: Vascular Disorder Additional Family Medical History / Comment(s): Mother of a brain aneurysm. General Exam - General Exam Comments Initial Comments: General: Appears in no acute distress. HEAD: Normal with no signs of head trauma. EYES: PERRLA, EOMI, conjunctiva normal, no discharge. ENT: Hearing grossly intact, normal oropharynx. Dry mucous membranes. RESPIRATORY: Clear breath sounds bilaterally. No wheezes, rales, or rhonchi. C/V: Mildly tachycardic with a regular rhythm.. S1 and S2 auscultated, no edema, peripheral pulses 2+ and intact throughout ABD: Abd is soft, nontender, nondistended EXT: Normal range of motion, no obvious deformity SKIN: No rashes or lesions observed on exposed skin. NEURO: Alert and oriented 4.And tremors present. Tongue tremors present. Limitations: no limitations Course Vital Signs 11/30/21 11/30/21 11/30/21 17:14 18:44 19:32 Temperature 98.5 F 98.5 F Pulse Rate 138 H 110 H 83 Respiratory 20 19 20 Rate Blood Pressure 181/106 164/107 169/94 O2 Sat by Pulse 96 95 97 Oximetry Medical Decision Making - Medical Decision Making Based on the patient's presentation and physical exam, I'm concerned for alcohol withdrawals and possible acute intervention process for his current nausea and vomiting. We will obtain abdominal laboratory studies. Screening EKG will be obtained. He'll be given IV fluids, GI cocktail, as well as a dose of phenobarbital for alcohol withdrawals, as there is an IV Ativan shortage. He was in agreement this plan. He'll be subsequently reevaluated. Patient is tachycardic but otherwise his vital signs within normal limits and stable. EKG showed no signs of acute ischemia. Heart rate is improved. Tachycardia has resolved. Laboratory studies are remarkable for what appears to be a anion gap metabolic acidosis likely secondary to alcoholic ketoacidosis, with a carbon paul xide of 17, anion gap 21, lactic acid of 7.5, as well as mild hypomagnesemia of 1.3 which was replenished. UA is pending. Alcohol level is mildly elevated at 50.We'll continue to trend the patient's lactic acid. Lactic acidosis is likely secondary to starvation ketoacidosis as well as dehydration. No suspicion for current infectious process at this time. On reevaluation, patient's tremors are improved. He will be started on Librium after discussion with the admitting team. I explained to him that he has alcohol ketoacidosis. He will be administered continued IV fluids as well as IV thia mine. Patient was in agreement this plan. Patient was started on a D5 drip at this time to treat starvation ketosis. He was in agreement this plan. I spoke with Alexandria Nguyen of [facility] who accepted the patient. Patient was admitted in stable condition. Patient is tolerating oral intake at this time. He is feeling improved. He never had abdominal pain. Patient was started on CIWA protocol. - Lab Data Result diagrams: 11/30/21 17:48 11/30/21 17:48 Lab Results 11/30/21 11/30/21 11/30/21 Range/Units 17:48 17:48 17:48 WBC 10.5 (3.8-10.6) k/uL RBC 5.16 (4.30-5.90) m/uL Hgb 16.3 (13.0-17.5) gm/dL Hct 47.2 (39.0-53.0) % MCV 91.4 (80.0-100.0) fL MCH 31.6 (25.0-35.0) pg MCHC 34.5 (31.0-37.0) g/dL RDW 14.4 (11.5-15.5) % Plt Count 256 (150-450) k/uL MPV 8.7 Neutrophils % 81 % Lymphocytes % 13 % Monocytes % 4 % Eosinophils % 0 % Basophils % 1 % Neutrophils # 8.5 H (1.3-7.7) k/uL Lymphocytes # 1.4 (1.0-4.8) k/uL Monocytes # 0.4 (0-1.0) k/uL Eosinophils # 0.0 (0-0.7) k/uL Basophils # 0.1 (0-0.2) k/uL Sodium 141 (137-145) mmol/L Potassium 3.8 (3.5-5.1) mmol/L Chloride 103 (98-107) mmol/L Carbon Dioxide 17 L (22-30) mmol/L Anion Gap 21 mmol/L BUN 8 L (9-20) mg/dL Creatinine 0.75 (0.66-1.25) mg/dL Est GFR (CKD-EPI)AfAm >90 (>60 ml/min/1.73 sqM) Est GFR (CKD-EPI)NonAf >90 (>60 ml/min/1.73 sqM) Glucose 157 H (74-99) mg/dL Lactic Ac Sepsis Rflx Plasma Lactic Acid Myron 7.5 H* (0.7-2.0) mmol/L Calcium 9.1 (8.4-10.2) mg/dL Magnesium (1.6-2.3) mg/dL Total Bilirubin 1.0 (0.2-1.3) mg/dL AST 43 (17-59) U/L ALT 39 (4-49) U/L Alkaline Phosphatase 87 (38-126) U/L Total Protein 7.9 (6.3-8.2) g/dL Albumin 5.0 (3.5-5.0) g/dL Amylase 62 (30-110) U/L Lipase 99 (23-300) U/L Serum Alcohol 50 mg/dL Acetone, Qual (Negative) 11/30/21 11/30/21 Range/Units 18:12 18:19 WBC (3.8-10.6) k/uL RBC (4.30-5.90) m/uL Hgb (13.0-17.5) gm/dL Hct (39.0-53.0) % MCV (80.0-100.0) fL MCH (25.0-35.0) pg MCHC (31.0-37.0) g/dL RDW (11.5-15.5) % Plt Count (150-450) k/uL MPV Neutrophils % % Lymphocytes % % Monocytes % % Eosinophils % % Basophils % % Neutrophils # (1.3-7.7) k/uL Lymphocytes # (1.0-4.8) k/uL Monocytes # (0-1.0) k/uL Eosinophils # (0-0.7) k/uL Basophils # (0-0.2) k/uL Sodium (137-145) mmol/L Potassium (3.5-5.1) mmol/L Chloride (98-107) mmol/L Carbon Dioxide (22-30) mmol/L Anion Gap mmol/L BUN (9-20) mg/dL Creatinine (0.66-1.25) mg/dL Est GFR (CKD-EPI)AfAm (>60 ml/min/1.73 sqM) Est GFR (CKD-EPI)NonAf (>60 ml/min/1.73 sqM) Glucose (74-99) mg/dL Lactic Ac Sepsis Rflx Y Plasma Lactic Acid Myron (0.7-2.0) mmol/L Calcium (8.4-10.2) mg/dL Magnesium 1.3 L (1.6-2.3) mg/dL Total Bilirubin (0.2-1.3) mg/dL AST (17-59) U/L ALT (4-49) U/L Alkaline Phosphatase (38-126) U/L Total Protein (6.3-8.2) g/dL Albumin (3.5-5.0) g/dL Amylase (30-110) U/L Lipase (23-300) U/L Serum Alcohol mg/dL Acetone, Qual Negative (Negative) - EKG Data -: EKG Interpreted by Me EKG Comments: 12-lead Electrocardiogram Interpretation Note EKG was reviewed and interpreted by myself. 12-lead ECG performed at 1809 is interpreted by me as revealing normal sinus rhythm at a rate of 98 beats per minute. Ewen is normal. MI interval is 153 ms, QRS duration is 85 ms, QTc is 394 ms.. There were no acute ST or T wave abnormalities to suggest myocardial ischemia or injury. R wave progression across the precordium was satisfactory. By my interpretation this EKG is non-diagnostic for acute ischemia. Unchanged when compared to prior EKGs. Disposition Clinical Impression: Alcoholic ketoacidosis, Alcohol withdrawal, Nausea & vomiting Disposition: ADMITTED IP TO THIS HOSP Condition: Stable Time of Disposition: 18:50
[2021-11-30 18:33] LABS: Magnesium 1.3 mg/dL (1.6-2.3)
[2021-11-30] MEDS ORDERED: MAGNESIUM SULFATE-D5W PMX 1 GM in DEXTROSE/WATER 1 100ML.BAG IVPB ONE (19:00)
[2021-11-30] MEDS ORDERED: THIAMINE 100 MG/ML 2 ML VIAL IM STA (19:08)
[2021-11-30] MEDS ORDERED: NALOXONE 0.4 MG/ML 1 ML VIAL IV PRN (19:10)
[2021-11-30] MEDS ORDERED: ONDANSETRON 4 MG/2 ML VIAL IVP PRN (19:10)
[2021-11-30] MEDS: DEXTROSE 5%-0.9% NACL 1,000 ML IV SCH (19:30)
[2021-11-30] MEDS: chlordiazePOXIDE 25 MG CAP PO SCH ×2 (20:11→22:56)
[2021-11-30 20:50] LABS: Appearance,Urine Clear (Clear); Bilirubin,Urine Negative (Negative); Blood,Urine Negative (Negative); Color,Urine Yellow; Glucose,Urine (UA) 2+ (Negative); Leukocyte Esterase,Urine Negative (Negative); Nitrite,Urine Negative (Negative); PH, Urine 5.5 (5.0-8.0); Protein,Urine Negative (Negative); Specific Gravity,Urine 1.017 (1.001-1.035); Urobilinogen,Urine <2.0 mg/dL (<2.0)
[2021-11-30 20:54] LABS: Ketones,Urine 3+ (Negative)
[2021-11-30] MEDS: QUEtiapine 25 MG TAB PO SCH (22:56)
[2021-12-01] MEDS: HEPARIN SODIUM,PORCINE/PF 5,000 UNIT/0.5 ML SYRINGE SQ SCH ×3 (00:59→16:10)
[2021-12-01] MEDS: DEXTROSE 5%-0.9% NACL 1,000 ML IV SCH ×2 (05:25→12:50)
[2021-12-01 06:08] VITALS: RESP 16
[2021-12-01] MEDS ORDERED: metFORMIN 500 MG TAB PO SCH (07:30)
[2021-12-01] MEDS: chlordiazePOXIDE 25 MG CAP PO SCH (08:19)
[2021-12-01] MEDS: QUEtiapine 25 MG TAB PO SCH (08:19)
[2021-12-01 08:42] LABS: Basophils # (A) 0.02 X 10*3/uL (0.00-0.10); Basophils % (A) 0.5 %; Eosinophils # (A) 0.04 X 10*3/uL (0.04-0.35); Eosinophils % (A) 1.1 %; HCT 36.8 % (39.6-50.0); HGB 12.7 g/dL (13.0-17.0); Immature Grans, Automated 0.3 %; Lymphocytes # (A) 1.23 X 10*3/uL (0.90-5.00); Lymphocytes % (A) 33.7 %; MCH 30.8 pg (27.0-32.0); MCHC 34.5 g/dL (32.0-37.0); MCV 89.3 fL (80.0-97.0); Mean Platelet Volume 11.2 fL (9.5-12.2); Monocytes # (A) 0.43 X 10*3/uL (0.20-1.00); Monocytes % (A) 11.8 %; NRBC Per 100 WBC 0 /100 WBCS (0.0-0.0); Neutrophils # (A) 1.92 X 10*3/uL (1.80-7.70); Neutrophils % (A) 52.6 %; Platelet Count 126 X 10*3/uL (140-440); RBC 4.12 X 10*6/uL (4.40-5.60); RDW 13.8 % (11.5-14.5); WBC 3.65 X 10*3/uL (4.50-10.00)
[2021-12-01 08:50] LABS: African American GFR (CKD) 131.3 (60.0-200.0); BUN/Creat Ratio 7.75 Ratio (12.00-20.00); Blood Urea Nitrogen 6.2 mg/dL (9.0-27.0); Calcium 7.9 mg/dL (8.7-10.3); Non-African American GFR(CKD) 113.3 (60.0-200.0); Potassium 3.6 mmol/L (3.5-5.5)
[2021-12-01] MEDS ORDERED: amLODIPine 10 MG TAB PO SCH (09:00)
[2021-12-01] MEDS ORDERED: lisinopriL 20 MG TAB PO SCH (09:00)
[2021-12-01] MEDS ORDERED: POTASSIUM CHLORIDE ER 20 MEQ TAB.ER PO STA (09:31)
[2021-12-01] MEDS ORDERED: SODIUM CHLORIDE 0.9% 1,000 ML IV SCH (09:45)
--- NOTE | 2021-12-01 11:38 | P.DS ---
Providers Date of admission: 11/30/21 19:10 Attending physician: Shawn Abreu Primary care physician: Stated None Hospital Course: Please refer to my history of present illness for further details Patient Condition at Discharge: Stable Plan - Discharge Summary Discharge Rx Participant: No New Discharge Prescriptions: New Magnesium Oxide [Mag-Oxide] 200 mg PO DAILY #20 tablet Omeprazole [PriLOSEC] 40 mg PO AC-BRKFST #14 cap Continue Latanoprost/Pf [Latanoprost 0.005% Eye Drop] 1 drop BOTH EYES HS metFORMIN HCL [Glucophage] 1,000 mg PO BID amLODIPine [Norvasc] 10 mg PO DAILY Thiamine [Vitamin B-1] 100 mg PO DAILY #30 tab Multivitamin [Multivitamins Adult Gummies] 1 tab PO DAILY lisinopriL [Zestril] 20 mg PO DAILY QUEtiapine FUMARATE [SEROquel XR] 50 mg PO HS Discharge Medication List Latanoprost/Pf [Latanoprost 0.005% Eye Drop] 1 drop BOTH EYES HS 06/10/19 [History] amLODIPine [Norvasc] 10 mg PO DAILY 08/15/20 [History] metFORMIN HCL [Glucophage] 1,000 mg PO BID 08/15/20 [History] QUEtiapine FUMARATE [SEROquel XR] 50 mg PO HS 09/28/21 [History] lisinopriL [Zestril] 20 mg PO DAILY 09/28/21 [History] Thiamine [Vitamin B-1] 100 mg PO DAILY #30 tab 09/29/21 [Rx] Multivitamin [Multivitamins Adult Gummies] 1 tab PO DAILY 11/30/21 [History] Magnesium Oxide [Mag-Oxide] 200 mg PO DAILY #20 tablet 12/01/21 [Rx] Omeprazole [PriLOSEC] 40 mg PO AC-BRKFST #14 cap 12/01/21 [Rx] Follow up Appointment(s)/Referral(s): Edward Carroll MD [REFERRING] - 1 Week
--- NOTE | 2021-12-01 11:38 | P.HPIM ---
History of Present Illness Patient is a pleasant 30-year-old male came in for nausea vomiting. Patient denied any hematemesis. Patient had fever chills. Patient last drink was on November 30 at 2 AM. Patient denied any abdominal pain. Patient presently denied any alcohol withdrawal symptoms patient had alcohol withdrawals in the past drinks about 1.5 fifth of alcohol every day. Patient is willing to quit but doesn't want to stay in the hospital. REVIEW OF SYSTEMS: CONSTITUTIONAL: No fever, no malaise, no fatigue. HEENT: No recent visual problems or hearing problems. Denied any sore throat. CARDIOVASCULAR: No chest pain, orthopnea, PND, no palpitations, no syncope. PULMONARY: No shortness of breath, no cough, no hemoptysis. GASTROINTESTINAL: No diarrhea, no nausea, no vomiting, no abdominal pain. NEUROLOGICAL: No headaches, no weakness, no numbness. HEMATOLOGICAL: Denies any bleeding or petechiae. GENITOURINARY: Denies any burning micturition, frequency, or urgency. MUSCULOSKELETAL/RHEUMATOLOGICAL: Denies any joint pain, swelling, or any muscle pain. ENDOCRINE: Denies any polyuria or polydipsia. The rest of the 14-point review of systems is negative. PHYSICAL EXAMINATION: GENERAL: The patient is alert and oriented x3, not in any acute distress. Well developed, well nourished. HEENT: Pupils are round and equally reacting to light. EOMI. No scleral icterus. No conjunctival pallor. Normocephalic, atraumatic. No pharyngeal erythema. No thyromegaly. CARDIOVASCULAR: S1 and S2 present. No murmurs, rubs, or gallops. PULMONARY: Chest is clear to auscultation, no wheezing or crackles. ABDOMEN: Soft, nontender, nondistended, normoactive bowel sounds. No palpable organomegaly. MUSCULOSKELETAL: No joint swelling or deformity. EXTREMITIES: No cyanosis, clubbing, or pedal edema. NEUROLOGICAL: Gross neurological examination did not reveal any focal deficits. SKIN: No rashes. Assessment and plan -Alcohol abuse: Patient is willing to quit alcohol and recommended to him to stay in the hospital as he can have withdrawals but patient wanted to go home patient will be discharged on weaning dose of Librium. -Hypomagnesemia secondary to alcoholism: Magnesium will be replaced patient will be discharged on magnesium oxide -Nausea vomiting secondary to alcoholic gastritis for which patient will be discharged on Prilosec for 14 days -Hypertension -Type 2 diabetes mellitus -Depression Patient will resume home medications for this Patient will be discharged today. Past Medical History Past Medical History: Diabetes Mellitus, Eye Disorder, Hypertension Additional Past Medical History / Comment(s): NIDDM type II, neuropathy bilateral feet, ETOH abuse, Hx of ETOH withdrawal, bilateral glaucoma, covid 09/2020 and once more. History of Any Multi-Drug Resistant Organisms: None Reported Past Surgical History: Ear Surgery Additional Past Surgical History / Comment(s): Bilateral myringotomy/tubes, Past Anesthesia/Blood Transfusion Reactions: No Reported Reaction Past Psychological History: No Psychological Hx Reported Additional Psychological History / Comment(s): Pt resides with his miranda. 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 He states he can get to appts thru [facility]. Smoking Status: Never smoker Past Alcohol Use History: Abuse, Daily, Heavy Additional Past Alcohol Use History / Comment(s): Pt drinks 1.5 fifths of vodka a day. He last drank 11/29/21 Past Drug Use History: None Reported - Past Family History Father Family Medical History: Diabetes Mellitus Mother Family Medical History: Vascular Disorder Additional Family Medical History / Comment(s): Mother of a brain aneurysm. Medications and Allergies Home Medications Medication Instructions Recorded Confirmed Type Latanoprost/Pf [Latanoprost 0.005% 1 drop BOTH EYES HS 06/10/19 11/30/21 History Eye Drop] amLODIPine [Norvasc] 10 mg PO DAILY 08/15/20 11/30/21 History metFORMIN HCL [Glucophage] 1,000 mg PO BID 08/15/20 11/30/21 History QUEtiapine FUMARATE [SEROquel XR] 50 mg PO HS 09/28/21 11/30/21 History lisinopriL [Zestril] 20 mg PO DAILY 09/28/21 11/30/21 History Thiamine [Vitamin B-1] 100 mg PO DAILY #30 tab 09/29/21 11/30/21 Rx Multivitamin [Multivitamins Adult 1 tab PO DAILY 11/30/21 11/30/21 History Gummies] Magnesium Oxide [Mag-Oxide] 200 mg PO DAILY #20 tablet 12/01/21 Rx Omeprazole [PriLOSEC] 40 mg PO AC-BRKFST #14 cap 12/01/21 Rx Allergies Allergy/AdvReac Type Severity Reaction Status Date / Time No Known Allergies Allergy Verified 11/30/21 18:23 Physical Exam Vitals: Vital Signs Temp Pulse Pulse Resp BP BP Pulse Ox 12/01/21 05:00 97.6 F 63 16 157/95 97 11/30/21 22:49 97.8 F 106 H 20 181/97 96 11/30/21 22:41 98.6 F 88 20 167/94 97 11/30/21 20:00 84 20 167/97 97 11/30/21 19:32 98.5 F 83 20 169/94 97 11/30/21 18:44 110 H 19 164/107 95 11/30/21 17:14 98.5 F 138 H 20 181/106 96 Intake and Output 11/30/21 12/01/21 12/01/21 22:59 06:59 14:59 Other: Voiding Method Toilet Toilet # Voids 1 Weight 99.79 kg 99.79 kg Results CBC & Chem 7: 12/01/21 06:28 12/01/21 06:28 Labs: Abnormal Lab Results - Last 24 Hours (Table) 11/30/21 11/30/21 11/30/21 Range/Units 17:48 17:48 17:48 WBC (4.50-10.00) X 10*3/uL RBC (4.40-5.60) X 10*6/uL Hgb (13.0-17.0) g/dL Hct (39.6-50.0) % Plt Count (140-440) X 10*3/uL Neutrophils # 8.5 H (1.3-7.7) k/uL Carbon Dioxide 17 L (22-30) mmol/L BUN 8 L (9-20) mg/dL BUN/Creatinine Ratio (12.00-20.00) Ratio Glucose 157 H (74-99) mg/dL Plasma Lactic Acid Myron (0.7-2.0) mmol/L Calcium (8.7-10.3) mg/dL Magnesium (1.6-2.3) mg/dL Urine Glucose (UA) 2+ H (Negative) Urine Ketones 3+ H (Negative) 11/30/21 11/30/21 11/30/21 Range/Units 17:48 18:19 20:47 WBC (4.50-10.00) X 10*3/uL RBC (4.40-5.60) X 10*6/uL Hgb (13.0-17.0) g/dL Hct (39.6-50.0) % Plt Count (140-440) X 10*3/uL Neutrophils # (1.3-7.7) k/uL Carbon Dioxide (22-30) mmol/L BUN (9-20) mg/dL BUN/Creatinine Ratio (12.00-20.00) Ratio Glucose (74-99) mg/dL Plasma Lactic Acid Myron 7.5 H* 4.0 H* (0.7-2.0) mmol/L Calcium (8.7-10.3) mg/dL Magnesium 1.3 L (1.6-2.3) mg/dL Urine Glucose (UA) (Negative) Urine Ketones (Negative) 11/30/21 12/01/21 12/01/21 Range/Units 23:49 06:28 06:28 WBC 3.65 L (4.50-10.00) X 10*3/uL RBC 4.12 L (4.40-5.60) X 10*6/uL Hgb 12.7 L (13.0-17.0) g/dL Hct 36.8 L (39.6-50.0) % Plt Count 126 L (140-440) X 10*3/uL Neutrophils # (1.3-7.7) k/uL Carbon Dioxide (22-30) mmol/L BUN 6.2 L (9-20) mg/dL BUN/Creatinine Ratio 7.75 L (12.00-20.00) Ratio Glucose 118 H (74-99) mg/dL Plasma Lactic Acid Myron 2.2 H* (0.7-2.0) mmol/L Calcium 7.9 L (8.7-10.3) mg/dL Magnesium (1.6-2.3) mg/dL Urine Glucose (UA) (Negative) Urine Ketones (Negative) Thrombosis Risk Factor Assmnt - Choose All That Apply Any of the Below Risk Factors Present?: No Other Risk Factors: No Other congenital or acquired thrombophilia - If yes, enter type in comment: No Thrombosis Risk Factor Assessment Level: Very Low Risk
[2021-12-01] MEDS: MAGNESIUM SULFATE-D5W PMX 1 GM in DEXTROSE/WATER 1 100ML.BAG IVPB SCH ×3 (11:49→14:39)
[2021-12-01] MEDS ORDERED: THIAMINE 100 MG TAB PO SCH (12:00)
[2021-12-01 12:44] VITALS: BP 127/89; PULSE 100; TEMP 97.3
== END 2021-12-01 16:20 | disposition home or self-care (01) ==
LOC: EC 17:01 → INTOOBSV 19:10 → 5NMEDONC 19:10 → UNDODISIN 12-01 16:20
PROVIDERS: ADMIT Hospitalist; ATTEND Hospitalist
PROC: HZ2ZZZZ Detoxification Services for Substance Abuse Treatment (ICD-10-PCS; principal; 2021-11-30)
DX: F10.231 Alcohol dependence with withdrawal delirium (principal); E87.2 Acidosis; K29.20 Alcoholic gastritis without bleeding; E83.42 Hypomagnesemia; E86.0 Dehydration; E11.42 Type 2 diabetes mellitus with diabetic polyneuropathy; I10 Essential (primary) hypertension; H40.9 Unspecified glaucoma; F32.A Depression, unspecified; Z79.84 Long term (current) use of oral hypoglycemic drugs; Z79.899 Other long term (current) drug therapy; Z98.890 Other specified postprocedural states; Z86.16 Personal history of COVID-19; Z71.41 Alcohol abuse counseling and surveillance of alcoholic; Y90.2 Blood alcohol level of 40-59 mg/100 ml; Z83.3 Family history of diabetes mellitus; Z82.49 Family history of ischemic heart disease and other diseases of the circulatory system
CPT/HCPCS: 96376; 96361 ×2; 96366; 96372 ×2; 96365; 96375; 99285; 36415; 93005; 80053; 80048; 82150; 82009; 83605 ×2; 83690; 83735; 85025 ×2; 81003; G0378 ×2; G0480; J3411; J2405 ×2; J2560; J3475 ×2; J1644; 80320

== ENCOUNTER 2022-06-07 11:17 | Emergency (ER) | payer OTHER ==
[2022-06-07] MEDS ORDERED: SODIUM CHLORIDE 0.9% 1,000 ML IV STA ×3 (11:28→16:13)
[2022-06-07] MEDS ORDERED: chlordiazePOXIDE 25 MG CAP PO PRN ×4 (11:29)
[2022-06-07] MEDS ORDERED: THIAMINE 100 MG/ML 2 ML VIAL IM STA (11:29)
[2022-06-07] MEDS ORDERED: LORazepam 2 MG/ML INJ IV PRN ×3 (11:29→12:35)
--- NOTE | 2022-06-07 11:56 | ED ---
Alcohol HPI - General Chief Complaint: Alcohol Stated Complaint: alcohol withdrawl Time Seen by Provider: 06/07/22 11:28 Source: patient, RN notes reviewed Mode of arrival: ambulatory Limitations: no limitations - History of Present Illness Initial Comments: This is a 36-year-old male who presents to the emergency department for alcohol withdrawals. States that his last drink was approximately 8 hours ago. He had a pint and a half of vodka. States that he typically has a pint and a half each day. He has never been to rehab, but states that he has been sober for up to 6 months at a time. He has been drinking daily for a long period of time at this point, however he cannot remember how long. He is actively vomiting in the examination room. Denies any history of withdrawal seizures. He has been going to counseling for the alcohol abuse, which he states has been helpful. Denies the desire for rehab at this time. Denies any fevers, chills, sore throat, cough, dyspnea, chest pain, palpitations, abdominal pain, diarrhea, back pain, or headaches. MD Complaint: alcohol withdrawal Time Since Last Drink: 8 -: days(s) Previous Visits for Alcohol Intoxication?: Yes Recent Trauma: No Associated Symptoms: nausea, vomiting Treatments Prior to Arrival: none Chronic Alcohol Use: Yes - Related Data Home Medications Medication Instructions Recorded Confirmed Latanoprost/Pf [Latanoprost 0.005% 1 drop BOTH EYES HS 06/10/19 06/07/22 Eye Drop] amLODIPine [Norvasc] 10 mg PO DAILY 08/15/20 06/07/22 metFORMIN HCL [Glucophage] 1,000 mg PO BID 08/15/20 06/07/22 lisinopriL [Zestril] 20 mg PO DAILY 09/28/21 06/07/22 Famotidine [Pepcid] 20 mg PO BID PRN 06/07/22 06/07/22 Previous Rx's Medication Instructions Recorded Ondansetron Odt [Zofran Odt] 4 mg PO Q8HR PRN #15 tab 06/07/22 Allergies Allergy/AdvReac Type Severity Reaction Status Date / Time No Known Allergies Allergy Verified 06/07/22 15:29 Review of Systems ROS Statement: Those systems with pertinent positive or pertinent negative responses have been documented in the HPI. ROS Other: All systems not noted in ROS Statement are negative. Past Medical History Past Medical History: Diabetes Mellitus, Eye Disorder, Hypertension Additional Past Medical History / Comment(s): NIDDM type II, neuropathy bilateral feet, ETOH abuse, Hx of ETOH withdrawal, bilateral glaucoma, covid 09/2020 and once more. History of Any Multi-Drug Resistant Organisms: None Reported Past Surgical History: Ear Surgery Additional Past Surgical History / Comment(s): Bilateral myringotomy/tubes, Past Anesthesia/Blood Transfusion Reactions: No Reported Reaction Past Psychological History: No Psychological Hx Reported Smoking Status: Never smoker Past Alcohol Use History: Abuse, Daily, Heavy Past Drug Use History: None Reported - Past Family History Father Family Medical History: Diabetes Mellitus Mother Family Medical History: Vascular Disorder Additional Family Medical History / Comment(s): Mother of a brain aneurysm. General Exam Limitations: no limitations General appearance: alert, other (tearful) Head exam: Present: atraumatic, normocephalic, normal inspection Respiratory exam: Present: normal lung sounds bilaterally. Absent: respiratory distress, wheezes, rales, rhonchi, stridor Cardiovascular Exam: Present: normal rhythm, tachycardia GI/Abdominal exam: Present: soft, normal bowel sounds. Absent: distended, tenderness, guarding, rebound, rigid Neurological exam: Present: alert, oriented X3, CN II-XII intact Psychiatric exam: Present: other (tearful) Skin exam: Present: warm, dry, intact, normal color. Absent: rash Course Vital Signs 06/07/22 06/07/22 06/07/22 11:24 12:52 14:00 Temperature 98.1 F 98.5 F Pulse Rate 130 H 105 H 120 H Respiratory 22 18 18 Rate Blood Pressure 138/88 143/94 139/91 O2 Sat by Pulse 99 98 97 Oximetry 06/07/22 06/07/22 06/07/22 14:57 16:15 17:36 Temperature 98.2 F 98.4 F 98.1 F Pulse Rate 105 H 115 H 120 H Respiratory 17 16 17 Rate Blood Pressure 149/91 125/83 147/89 O2 Sat by Pulse 97 96 98 Oximetry 06/07/22 18:02 Temperature Pulse Rate 120 H Respiratory 17 Rate Blood Pressure 116/78 O2 Sat by Pulse 96 Oximetry Medical Decision Making - Medical Decision Making This is a 36-year-old male who presents to the emergency department for alcohol withdrawals. Was pt. sent in by a medical professional or institution? @ -No Did you speak to anyone other than the patient for history? @ -No Did you review nursing and triage notes? @ -Agree, accurate with regards to the patient's symptoms. Were old charts reviewed? @ -No Differential Diagnosis? @ -Sympathomimetic syndrome, anti-muscarinic syndrome, serotonin syndrome, neuroleptic malignant syndrome, thyrotoxicosis, encephalitis, acute psychosis, hypoglycemia, trauma, sepsis. This is not meant to be an all-inclusive list. What testing was considered but not performed? (CT, X-rays, U/S, labs)? Why? @ -None What meds were considered but not given? Why? @ -Initially tried to give the patient Librium, however he states that this is not effective for him. Additionally, he is unable to tolerate oral intake at this time due to active nausea and vomiting. Did you discuss the management of the patient with other professionals? @ -No Did you reconcile home meds? @ -No Was smoking cessation discussed for >3mins.? @ -No Was critical care preformed (if so, how long)? @ -No Were there social determinants of health that impacted care today? How? (Ho melessness, low income, unemployed, alcoholism, drug addiction, transportation, low edu. Level, literacy, decrease access to med. care, longterm, rehab)? @ -Alcoholism Was there de-escalation of care discussed even if they declined? (Discuss DNR or withdrawal of care, Hospice)? @ -No What co-morbidities impacted this encounter? (DM, HTN, Smoking, COPD, CAD, Cancer, CVA, Hep., AIDS, mental health diagnosis, sleep apnea, morbid obesity)? @ -Diabetes, hypertension Was patient admitted / discharged? @ -After initial evaluation, alcohol withdrawal/intoxication lab work was obtained and the CIWA protocol was initiated. He was given a liter bolus of normal saline and Zofran. Lab work reveals a critical alcohol level of 339. Patient is not clinically intoxicated, in that he is able to ambulate straight and is not having any slurring of the speech. He is also coherent in his thought process. States that he would like to avoid admission and remain in the ER for a couple of hours to treat his symptoms. His will be able to pick him up. I am agreeable to this due to the fact that the patient is not clinically intoxicated and he has no history of withdrawal seizures or other complications from withdrawals aside from the nausea and vomiting. He did have alternating doses of Zofran and Reglan, however he continued to have episodes of vomiting. He was subsequently given Compazine. He noted additional improvement after the Compazine. He ended up getting 2.5 L of normal saline in total for dehydration. States that he overall feels much better than he did when he came in and is still not clinically intoxicated. He was given information on his d ischarge paperwork for resources that may help with the alcohol dependence. Advised he contact them for treatment. Prescription and starter pack for Zofran provided with dosing instructions reviewed. He did call his who was still willing to pick him up. Patient was discharged in her care. Drug Therapy requiring intensive monitoring for toxicity (Heparin, Nitro, Insulin, Cardizem)? @ -None Were any procedures done? @ -None Diagnosis/symptom? @ -Alcohol withdrawals Acute, or Chronic, or Acute on Chronic? @ -Acute Uncomplicated (without systemic symptoms) or Complicated (systemic symptoms)? @ -Complicated, patient is experiencing nausea and vomiting. Side effects of treatment? @ -Adverse reactions to the Zofran, Reglan, and Compazine. Sedation or drowsiness induced by the Ativan. Exacerbation, Progression, or Severe Exacerbation] @ -Not applicable Poses a threat to life or bodily function? @ -Can become life-threatening if he were to develop delirium tremens. Return precautions reviewed in depth, the patient is instructed to return to the emergency department with any new, worsening, or concerning symptoms. Patient verbalized understanding. This case was discussed in detail with the attending ED physician. Presentation, findings, and treatment plan discussed in detail as well. - Lab Data Result diagrams: 06/07/22 12:06 06/07/22 12:06 Lab Results 06/07/22 06/07/22 06/07/22 Range/Units 12:06 12:06 12:06 WBC 8.8 (3.8-10.6) k/uL RBC 5.49 (4.30-5.90) m/uL Hgb 17.4 (13.0-17.5) gm/dL Hct 48.4 (39.0-53.0) % MCV 88.1 (80.0-100.0) fL MCH 31.7 (25.0-35.0) pg MCHC 36.0 (31.0-37.0) g/dL RDW 13.0 (11.5-15.5) % Plt Count 327 (150-450) k/uL MPV 8.3 Neutrophils % 78 % Lymphocytes % 15 % Monocytes % 4 % Eosinophils % 0 % Basophils % 2 % Neutrophils # 6.9 (1.3-7.7) k/uL Lymphocytes # 1.3 (1.0-4.8) k/uL Monocytes # 0.4 (0-1.0) k/uL Eosinophils # 0.0 (0-0.7) k/uL Basophils # 0.2 (0-0.2) k/uL PT 11.3 (9.0-12.0) sec INR 1.1 (<1.2) Sodium 138 (137-145) mmol/L Potassium 3.9 (3.5-5.1) mmol/L Chloride 97 L (98-107) mmol/L Carbon Dioxide 15 L (22-30) mmol/L Anion Gap 26 mmol/L BUN 8 L (9-20) mg/dL Creatinine 0.69 (0.66-1.25) mg/dL Est GFR (CKD-EPI)AfAm >90 (>60 ml/min/1.73 sqM) Est GFR (CKD-EPI)NonAf >90 (>60 ml/min/1.73 sqM) Glucose 181 H (74-99) mg/dL Calcium 8.6 (8.4-10.2) mg/dL Phosphorus 3.8 (2.5-4.5) mg/dL Magnesium 1.8 (1.6-2.3) mg/dL Total Bilirubin 1.3 (0.2-1.3) mg/dL AST 140 H (17-59) U/L ALT 110 H (4-49) U/L Alkaline Phosphatase 108 (38-126) U/L Total Protein 8.2 (6.3-8.2) g/dL Albumin 5.1 H (3.5-5.0) g/dL Amylase 69 (30-110) U/L Lipase 313 H (23-300) U/L Serum Alcohol 339 H* mg/dL Disposition Clinical Impression: Alcohol withdrawal Disposition: HOME SELF-CARE Instructions (If sedation given, give patient instructions): Alcohol Withdrawal (ED) Additional Instructions: Return to the emergency department with any new, worsening, or concerning symptoms. The Zofran can be taken up to every 8 hours as needed for nausea and vomiting. I sent a prescription to the pharmacy in case you run out of the starter pack provided in the emergency department. Make sure that you get plenty of rest, remain well-hydrated, and slowly advance your diet as tolerated. There were resources listed on your discharge information for alcohol dependence, try to contact them for treatment options. Do your best to reduce your alcohol intake or abstain from it altogether. Follow up with your primary care provider in 1-2 days. Prescriptions: Ondansetron Odt [Zofran Odt] 4 mg PO Q8HR PRN #15 tab PRN Reason: Nausea And Vomiting Is patient prescribed a controlled substance at d/c from ED?: No Referrals: None,Stated [Primary Care Provider] - 1-2 days Forms: AA Keren Bernstein, Outpatient Counseling, In Substance Abuse Facilities
[2022-06-07 12:23] LABS: Basophils # (A) 0.2 k/uL (0-0.2); Basophils % (A) 2 %; Eosinophils % (A) 0 %; HCT 48.4 % (39.0-53.0); HGB 17.4 gm/dL (13.0-17.5); Lymphocytes # (A) 1.3 k/uL (1.0-4.8); Lymphocytes % (A) 15 %; MCH 31.7 pg (25.0-35.0); MCV 88.1 fL (80.0-100.0); Mean Platelet Volume 8.3; Monocytes # (A) 0.4 k/uL (0-1.0); Monocytes % (A) 4 %; Neutrophils # (A) 6.9 k/uL (1.3-7.7); Neutrophils % (A) 78 %; Platelet Count 327 k/uL (150-450); RBC 5.49 m/uL (4.30-5.90); WBC 8.8 k/uL (3.8-10.6)
[2022-06-07 12:36] LABS: INR 1.1 (<1.2); Prothrombin Time 11.3 sec (9.0-12.0)
[2022-06-07] MEDS ORDERED: ONDANSETRON 4 MG/2 ML VIAL IVP STA ×2 (12:36→16:13)
[2022-06-07 12:41] LABS: ALT 110 U/L (4-49); AST 140 U/L (17-59); African American GFR (CKD) >90 (>60 ml/min/1.73 sqM); Albumin 5.1 g/dL (3.5-5.0); Alkaline Phosphatase 108 U/L (38-126); Amylase 69 U/L (30-110); Anion Gap 26 mmol/L; Blood Urea Nitrogen 8 mg/dL (9-20); Calcium 8.6 mg/dL (8.4-10.2); Carbon Dioxide 15 mmol/L (22-30); Chloride 97 mmol/L (98-107); Glucose 181 mg/dL (74-99); Lipase 313 U/L (23-300); Magnesium 1.8 mg/dL (1.6-2.3); Non-African American GFR(CKD) >90 (>60 ml/min/1.73 sqM); Phosphorus 3.8 mg/dL (2.5-4.5); Potassium 3.9 mmol/L (3.5-5.1); Sodium 138 mmol/L (137-145); Total Bilirubin 1.3 mg/dL (0.2-1.3); Total Protein 8.2 g/dL (6.3-8.2)
[2022-06-07 12:52] LABS: Alcohol 339 mg/dL
[2022-06-07] MEDS ORDERED: METOCLOPRAMIDE 5 MG/ML 2 ML VIAL IVP STA (14:27)
[2022-06-07] MEDS: LORazepam 2 MG/ML INJ IV PRN ×2 (14:50→17:37)
[2022-06-07] MEDS ORDERED: ONDANSETRON 4 MG ODT STARTER PACK 2 TAB BTL PO STA (16:13)
[2022-06-07] MEDS ORDERED: SODIUM CHLORIDE 0.9% 500 ML 500 ML IV STA (16:16)
[2022-06-07] MEDS ORDERED: PROCHLORPERAZINE INJ 10 MG/2 ML VIAL IVP STA (17:39)
[2022-06-07 19:24] VITALS: BP 128/96; PULSE 126; RESP 18; TEMP 98
[2022-06-08] MEDS ORDERED: THIAMINE 100 MG TAB PO SCH (09:00)
== END 2022-06-07 19:24 | disposition home or self-care (01) ==
LOC: EC 11:17
DX: F10.139 Alcohol abuse with withdrawal, unspecified (principal); E11.9 Type 2 diabetes mellitus without complications; I10 Essential (primary) hypertension; Z79.84 Long term (current) use of oral hypoglycemic drugs; Z79.899 Other long term (current) drug therapy
CPT/HCPCS: 36415; 80053; 82150; 83690; 83735; 84100; 85025; 85610; 99285; 96374; 96375 ×3; 96376 ×3; 96361 ×2; 96372; G0480; J2060; J0780; J2765; J3411; J2405; S0119; 80320

== ENCOUNTER 2022-07-03 16:03 | Emergency (ER) | payer OTHER ==
[2022-07-03 16:17] VITALS: RESP 18; TEMP 97.8
[2022-07-03] MEDS ORDERED: SODIUM CHLORIDE 0.9% 500 ML 500 ML IV STA (16:36)
[2022-07-03] MEDS ORDERED: SODIUM CHLORIDE 0.9% 1,000 ML IV STA (16:36)
[2022-07-03 16:56] LABS: Basophils # (A) 0.1 k/uL (0-0.2); Basophils % (A) 1 %; Eosinophils % (A) 1 %; HCT 44.8 % (39.0-53.0); HGB 15.7 gm/dL (13.0-17.5); Hyperchromasia Slight; Lymphocytes # (A) 1.9 k/uL (1.0-4.8); Lymphocytes % (A) 25 %; MCH 31.5 pg (25.0-35.0); MCHC 35.1 g/dL (31.0-37.0); MCV 89.7 fL (80.0-100.0); Mean Platelet Volume 8.2; Monocytes # (A) 0.3 k/uL (0-1.0); Monocytes % (A) 5 %; Neutrophils # (A) 5.2 k/uL (1.3-7.7); Neutrophils % (A) 68 %; Platelet Count 253 k/uL (150-450); RDW 13.7 % (11.5-15.5); WBC 7.5 k/uL (3.8-10.6)
--- NOTE | 2022-07-03 17:04 | ED ---
General Adult HPI - General Chief complaint: Nausea/Vomiting/Diarrhea Stated complaint: alcohol withdrawl,vomiting Time Seen by Provider: 07/03/22 16:15 Source: patient, RN notes reviewed, old records reviewed Mode of arrival: ambulatory Limitations: no limitations - History of Present Illness Initial comments: This is a 36-year-old male who presents emergency Department stating he hasn't drank for 12 are deeply does go into withdrawal. Patient states she's nauseated and vomiting. Patient denies any chest pain patient denies difficulty breathing shortness of breath per patient denies any abdominal pain. Patient denies any recent fever chills or cough. Patient states he's been in here multiple times for withdrawal. - Related Data Home Medications Medication Instructions Recorded Confirmed Latanoprost/Pf [Latanoprost 0.005% 1 drop BOTH EYES HS 06/10/19 07/03/22 Eye Drop] amLODIPine [Norvasc] 10 mg PO DAILY 08/15/20 07/03/22 metFORMIN HCL [Glucophage] 1,000 mg PO BID 08/15/20 07/03/22 lisinopriL [Zestril] 20 mg PO DAILY 09/28/21 07/03/22 Allergies Allergy/AdvReac Type Severity Reaction Status Date / Time No Known Allergies Allergy Verified 07/03/22 16:52 Review of Systems ROS Statement: Those systems with pertinent positive or pertinent negative responses have been documented in the HPI. ROS Other: All systems not noted in ROS Statement are negative. Past Medical History Past Medical History: Diabetes Mellitus, Eye Disorder, Hypertension Additional Past Medical History / Comment(s): NIDDM type II, neuropathy gael ateral feet, ETOH abuse, Hx of ETOH withdrawal, bilateral glaucoma, covid 09/2020 and once more. History of Any Multi-Drug Resistant Organisms: None Reported Past Surgical History: Ear Surgery Additional Past Surgical History / Comment(s): Bilateral myringotomy/tubes, Past Anesthesia/Blood Transfusion Reactions: No Reported Reaction Past Psychological History: No Psychological Hx Reported Smoking Status: Never smoker Past Alcohol Use History: Abuse, Daily, Heavy Past Drug Use History: None Reported - Past Family History Father Family Medical History: Diabetes Mellitus Mother Family Medical History: Vascular Disorder Additional Family Medical History / Comment(s): Mother of a brain aneurysm. General Exam - General Exam Comments Initial Comments: GENERAL: Patient is well-developed and well-nourished. Patient is nontoxic and well- hydrated and is in mild distress. ENT: Neck is soft and supple. No significant lymphadenopathy is noted. Oropharynx is clear. Moist mucous membranes. Neck has full range of motion without eliciting any pain. EYES: The sclera were anicteric and conjunctiva were pink and moist. Extraocular movements were intact and pupils were equal round and reactive to light. Eyeli ds were unremarkable. PULMONARY: Unlabored respirations. Good breath sounds bilaterally. No audible rales rhonchi or wheezing was noted. CARDIOVASCULAR: Patient is tachycardic at about 130 beats a minute ABDOMEN: Soft and nontender with normal bowel sounds. SKIN: Skin is clear with no lesions or rashes and otherwise unremarkable. NEUROLOGIC: Patient is alert and oriented x3. Cranial nerves II through XII are grossly intact. Motor and sensory are also intact. Normal speech, volume and content. Symmetrical smile. MUSCULOSKELETAL: Normal extremities with adequate strength and full range of motion. No lower extremity swelling or edema. No calf tenderness. LYMPHATICS: No significant lymphadenopathy is noted PSYCHIATRIC: Normal psychiatric evaluation. Limitations: no limitations Course Vital Signs 07/03/22 07/03/22 07/03/22 16:14 17:35 18:53 Temperature 97.8 F Pulse Rate 158 H 110 H 124 H Respiratory 18 18 18 Rate Blood Pressure 140/81 126/78 105/76 O2 Sat by Pulse 96 99 96 Oximetry Medical Decision Making - Medical Decision Making EKG is interpreted by me. EKG shows sinus tachycardia at 141 bpm WA interval 143 QRSs 85 Q-T intervals 290 QTC is 372. Patient's EKG shows no ST segment elevation or depression. Was pt. sent in by a medical professional or institution (, PA, RETINAL SURGEON, urgent care, hospital, or fci...) When possible be specific @ -No Did you speak to anyone other than the patient for history (EMS, parent, family, police, friend...)? What history was obtained from this source @ -No Did you review nursing and triage notes (agree or disagree)? Why? @ -I reviewed and agree with nursing and triage notes Were old charts reviewed (outside hosp., previous admission, EMS record, old EKG, old radiological studies, urgent care reports/EKG's, fci records)? Report findings @ -No old charts were reviewed Differential Diagnosis (chest pain, altered mental status, abdominal pain women, abdominal pain men, vaginal bleeding, weakness, fever, dyspnea, syncope, headache, dizziness, GI bleed, back pain, seizure, CVA, palpatations, mental health)? @ -Alcohol withdrawal, alcohol abuse, alcohol intoxication, acute vomiting this is not an all inclusive list EKG interpreted by me (3pts min.). @ -As above X-rays interpreted by me (1pt min.). @ -None done CT interpreted by me (1pt min.). @ -None done U/S interpreted by me (1pt. min.). @ -None done What testing was considered but not performed or refused? (CT, X-rays, U/S, labs )? Why? @ -None What meds were considered but not given or refused? Why? @ -None Did you discuss the management of the patient with other professionals (professionals i.e. , PA, RETINAL SURGEON, lab, RT, psych nurse, sr. social media & mobile manager, company dancer, teacher, boating safety officer, rehabilitation case coordinator)? Give summary @ -No Was smoking cessation discussed for >3mins.? @ -No Was critical care preformed (if so, how long)? @ -No Were there social determinants of health that impacted care today? How? (Homelessness, low income, unemployed, alcoholism, drug addiction, transportation, low edu. Level, literacy, decrease access to med. care, intermediate, rehab)? @ -No Was there de-escalation of care discussed even if they declined (Discuss DNR or withdrawal of care, Hospice)? DNR status @ -No What co-morbidities impacted this encounter? (DM, HTN, Smoking, COPD, CAD, Cancer, CVA, ARF, Chemo, Hep., AIDS, mental health diagnosis, sleep apnea, morbid obesity)? @ -None Was patient admitted / discharged? Hospital course, mention meds given and route, prescriptions, significant lab abnormalities, going to OR and other pertinent info. @ -Patient was given Ativan he was feeling considerably better he was no longer vomiting after Zofran. Patient will seek out rehabilitation centers and he states he does want to go and will not drink he goes home. Patient states he will take Zofran as prescribed. Undiagnosed new problem with uncertain prognosis? @ -No Drug Therapy requiring intensive monitoring for toxicity (Heparin, Nitro, Insulin, Cardizem)? @ -No Were any procedures done? @ -No Diagnosis/symptom? @ -Alcohol abuse Acute, or Chronic, or Acute on Chronic? @ -Acute Uncomplicated (without systemic symptoms) or Complicated (systemic symptoms)? @ -Uncomplicated Side effects of treatment? @ -No Exacerbation, Progression, or Severe Exacerbation? @ -No Poses a threat to life or bodily function? How? (Chest pain, [place], [place], pneumonia, PE, COPD, DKA, ARF, appy, cholecystitis, CVA, Diverticulitis, Homicidal, Suicidal, threat to staff... and all critical care pts) @ -No - Lab Data Result diagrams: 07/03/22 16:46 07/03/22 16:46 Lab Results 07/03/22 07/03/22 Range/Units 16:46 16:46 WBC 7.5 (3.8-10.6) k/uL RBC 5.00 (4.30-5.90) m/uL Hgb 15.7 (13.0-17.5) gm/dL Hct 44.8 (39.0-53.0) % MCV 89.7 (80.0-100.0) fL MCH 31.5 (25.0-35.0) pg MCHC 35.1 (31.0-37.0) g/dL RDW 13.7 (11.5-15.5) % Plt Count 253 (150-450) k/uL MPV 8.2 Neutrophils % 68 % Lymphocytes % 25 % Monocytes % 5 % Eosinophils % 1 % Basophils % 1 % Neutrophils # 5.2 (1.3-7.7) k/uL Lymphocytes # 1.9 (1.0-4.8) k/uL Monocytes # 0.3 (0-1.0) k/uL Eosinophils # 0.0 (0-0.7) k/uL Basophils # 0.1 (0-0.2) k/uL Hyperchromasia Slight Sodium 142 (137-145) mmol/L Potassium 3.9 (3.5-5.1) mmol/L Chloride 104 (98-107) mmol/L Carbon Dioxide 15 L (22-30) mmol/L Anion Gap 23 mmol/L BUN 10 (9-20) mg/dL Creatinine 0.68 (0.66-1.25) mg/dL Est GFR (CKD-EPI)AfAm >90 (>60 ml/min/1.73 sqM) Est GFR (CKD-EPI)NonAf >90 (>60 ml/min/1.73 sqM) Glucose 157 H (74-99) mg/dL Calcium 8.8 (8.4-10.2) mg/dL Magnesium 1.6 (1.6-2.3) mg/dL Total Bilirubin 1.0 (0.2-1.3) mg/dL AST 50 (17-59) U/L ALT 55 H (4-49) U/L Alkaline Phosphatase 90 (38-126) U/L Total Protein 7.2 (6.3-8.2) g/dL Albumin 4.6 (3.5-5.0) g/dL Amylase 54 (30-110) U/L Lipase 146 (23-300) U/L Serum Alcohol 129 mg/dL Disposition Clinical Impression: Alcohol abuse Disposition: HOME SELF-CARE Condition: Good Instructions (If sedation given, give patient instructions): Abuse of Alcohol (ED) Is patient prescribed a controlled substance at d/c from ED?: No Referrals: None,Stated [Primary Care Provider] - 1-2 days Time of Disposition: 18:22
[2022-07-03 17:06] LABS: ALT 55 U/L (4-49); AST 50 U/L (17-59); African American GFR (CKD) >90 (>60 ml/min/1.73 sqM); Albumin 4.6 g/dL (3.5-5.0); Alkaline Phosphatase 90 U/L (38-126); Amylase 54 U/L (30-110); Anion Gap 23 mmol/L; Blood Urea Nitrogen 10 mg/dL (9-20); Calcium 8.8 mg/dL (8.4-10.2); Carbon Dioxide 15 mmol/L (22-30); Chloride 104 mmol/L (98-107); Glucose 157 mg/dL (74-99); Lipase 146 U/L (23-300); Magnesium 1.6 mg/dL (1.6-2.3); Non-African American GFR(CKD) >90 (>60 ml/min/1.73 sqM); Potassium 3.9 mmol/L (3.5-5.1); Sodium 142 mmol/L (137-145); Total Protein 7.2 g/dL (6.3-8.2)
[2022-07-03 17:28] LABS: Alcohol 129 mg/dL
[2022-07-03] MEDS ORDERED: ONDANSETRON 4 MG/2 ML VIAL IVP STA (17:30)
[2022-07-03] MEDS ORDERED: LORazepam 2 MG/ML INJ IV STA (18:02)
[2022-07-03] MEDS ORDERED: ONDANSETRON 4 MG ODT STARTER PACK 2 TAB BTL PO STA (18:37)
[2022-07-03 18:54] VITALS: BP 105/76; PULSE 124
== END 2022-07-03 18:54 | disposition home or self-care (01) ==
LOC: EC 16:03
DX: F10.10 Alcohol abuse, uncomplicated (principal); I10 Essential (primary) hypertension; E11.9 Type 2 diabetes mellitus without complications; Z79.84 Long term (current) use of oral hypoglycemic drugs
CPT/HCPCS: 36415; 80053; 82150; 83690; 83735; 85025; 99285; 96374; 96375; 96361; G0480; J2060; J2405; S0119; 80320; 93005

== ENCOUNTER 2022-10-21 17:54 | Emergency (ER) | payer BC, OTHER ==
[2022-10-21 18:06] VITALS: TEMP 97.9
[2022-10-21] MEDS ORDERED: ACETAMINOPHEN TAB 325 MG TAB PO STA (20:02)
[2022-10-21] MEDS ORDERED: SODIUM CHLORIDE 0.9% 1,000 ML IV ONE (20:02)
[2022-10-21] MEDS ORDERED: LORazepam 2 MG/ML INJ IV STA ×2 (20:02→21:53)
[2022-10-21] MEDS ORDERED: ONDANSETRON 4 MG/2 ML VIAL IVP STA (20:02)
--- NOTE | 2022-10-21 20:26 | ED ---
General Adult HPI - General Chief complaint: Nausea/Vomiting/Diarrhea Stated complaint: ETOH withdrawls Time Seen by Provider: 10/21/22 19:53 Source: patient, RN notes reviewed Mode of arrival: ambulatory Limitations: no limitations - History of Present Illness Initial comments: 37-year-old male with past medical history significant for EtOH abuse presents to the emergency department with a chief complaint of alcohol withdrawal. Patient reports his last alcoholic beverage was approximately 15 hours ago. He reports taking a fifth and a half of vodka daily. He reports that he is attentive to withdrawal from alcohol his last attempt was in July [id number]. He denies any procedures on withdrawing. He is complaining of accompanying symptoms of headache, nausea, vomiting, tremors. He denies any illicit drug use. He denies any homicidal or suicidal ideation at this time. - Related Data Home Medications Medication Instructions Recorded Confirmed Latanoprost/Pf [Latanoprost 0.005% 1 drop BOTH EYES HS 06/10/19 10/21/22 Eye Drop] amLODIPine [Norvasc] 10 mg PO DAILY 08/15/20 10/21/22 metFORMIN HCL [Glucophage] 1,000 mg PO BID 08/15/20 10/21/22 lisinopriL [Zestril] 20 mg PO DAILY 09/28/21 10/21/22 Allergies Allergy/AdvReac Type Severity Reaction Status Date / Time No Known Allergies Allergy Verified 10/21/22 22:34 Review of Systems ROS Statement: Those systems with pertinent positive or pertinent negative responses have been documented in the HPI. ROS Other: All systems not noted in ROS Statement are negative. Past Medical History Past Medical History: Diabetes Mellitus, Eye Disorder, Hypertension Additional Past Medical History / Comment(s): NIDDM type II, neuropathy bilateral feet, ETOH abuse, Hx of ETOH withdrawal, bilateral glaucoma, covid 09/2020 and once more. History of Any Multi-Drug Resistant Organisms: None Reported Past Surgical History: Ear Surgery Additional Past Surgical History / Comment(s): Bilateral myringotomy/tubes, Past Anesthesia/Blood Transfusion Reactions: No Reported Reaction Past Psychological History: No Psychological Hx Reported Smoking Status: Never smoker Past Alcohol Use History: Abuse, Daily, Heavy Past Drug Use History: None Reported - Past Family History Father Family Medical History: Diabetes Mellitus Mother Family Medical History: Vascular Disorder Additional Family Medical History / Comment(s): Mother of a brain aneurysm. General Exam - General Exam Comments Initial Comments: General: Alert, in no acute distress, he appears anxious Head: atraumatic normocephalic. Eyes PERRL, EOMI intact, mucous membranes moist Respiratory: Lungs clear to auscultation bilaterally Cardiovascular: Tachycardic Abdominal: Soft without guarding or rebound Extremities: Normal inspection with full range of motion and normal capillary refill Neuroogic: alert and oriented 3, CN II-XII intact, able to ambulate with steady gait Skin: warm dry and intact with normal color Limitations: no limitations Course Vital Signs 10/21/22 10/21/22 10/22/22 18:03 20:05 00:15 Temperature 97.9 F Pulse Rate 133 H 120 H 92 Respiratory 18 18 16 Rate Blood Pressure 181/116 189/124 155/78 O2 Sat by Pulse 95 97 99 Oximetry EKG Findings - EKG Comments: EKG Findings:: I interpreted the following: EKG performed at 21:13 rate 91 bpm normal sinus rhythm MS interval 154, QRS duration 85, QT/QTc 339/387 Medical Decision Making - Medical Decision Making Was pt. sent in by a medical professional or institution (, PA, INSPECTOR TUBES, urgent care, hospital, or senior living...) When possible be specific @ -[No] Did you speak to anyone other than the patient for history (EMS, parent, family, police, friend...)? What history was obtained from this source @ -[No] Did you review nursing and triage notes (agree or disagree)? Why? @ -[I reviewed and agree with nursing and triage notes] Were old charts reviewed (outside hosp., previous admission, EMS record, old EKG, old radiological studies, urgent care reports/EKG's, senior living records)? Report findings @ -[No old charts were reviewed] Differential Diagnosis (chest pain, altered mental status, abdominal pain women, abdominal pain men, vaginal bleeding, weakness, fever, dyspnea, syncope, headache, dizziness, GI bleed, back pain, seizure, CVA, palpatations, mental health, musculoskeletal)? @ -[not applicable] EKG interpreted by me (3pts min.). @ -[As above] X-rays interpreted by me (1pt min.). @ -[None done] CT interpreted by me (1pt min.). @ -[None done] U/S interpreted by me (1pt. min.). @ -[None done] What testing was considered but not performed or refused? (CT, X-rays, U/S, labs)? Why? @ -[None] What meds were considered but not given or refused? Why? @ -[None] Did you discuss the management of the patient with other professionals (professionals i.e. , PA, INSPECTOR TUBES, lab, RT, psych nurse, transition social worker, diamond broker, teacher, chief safety officer, catalytic case operator)? Give summary @ -[No] Was smoking cessation discussed for >3mins.? @ -[No] Was critical care preformed (if so, how long)? @ -[No] Were there social determinants of health that impacted care today? How? (Homelessness, low income, unemployed, alcoholism, drug addiction, transportation, low edu. Level, literacy, decrease access to med. care, long term, rehab)? @ -[No] Was there de-escalation of care discussed even if they declined (Discuss DNR or withdrawal of care, Hospice)? DNR status @ -[No] What co-morbidities impacted this encounter? (DM, HTN, Smoking, COPD, CAD, Cancer, CVA, ARF, Chemo, Hep., AIDS, mental health diagnosis, sleep apnea, morbid obesity)? @ -[None] Was patient admitted / discharged? Hospital course, mention meds given and route, prescriptions, significant lab abnormalities, going to OR and other pertinent info. @ -Discharged. This is a 37-year-old male who presents the emergency department with alcohol withdrawal. Patient had a thorough history and physical exam performed, physical exam reveals heart rate regular rate and rhythm, lungs clear to auscultation bilaterally abdomen is soft and nontender. Initial evaluation patient appears anxious and vomiting, Patient able to ambulate with a steady gait. No neurological deficits are noted. imaging performed which was essentially unremarkable. Patient given 1L IV fluids, zof ran, ativan, and reglan with symptomatic relief. I discussed the results in detail with the patient verbalized understanding and all questions were addressed. Return precautions were discussed at length. Discharged in stable condition. Case discussed with REJI Marquez who agrees with plan of care Undiagnosed new problem with uncertain prognosis? @ -[No] Drug Therapy requiring intensive monitoring for toxicity (Heparin, Nitro, Insul in, Cardizem)? @ -[No] Were any procedures done? @ -[No] Diagnosis/symptom? @ -alcohol withdrawal Acute, or Chronic, or Acute on Chronic? @ -acute Uncomplicated (without systemic symptoms) or Complicated (systemic symptoms)? @ -uncomplicated Side effects of treatment? @ -[No] Exacerbation, Progression, or Severe Exacerbation? @ -[No] Poses a threat to life or bodily function? How? (Chest pain, USA, [place], pneumonia, PE, COPD, DKA, ARF, appy, cholecystitis, CVA, Diverticulitis, Homicidal, Suicidal, threat to staff... and all critical care pts) @ -moderate likelihood - Lab Data Result diagrams: 10/21/22 20:20 10/21/22 20:20 Lab Results 10/21/22 10/21/22 10/21/22 Range/Units 20:20 20:20 20:20 WBC 6.1 (3.8-10.6) k/uL RBC 5.58 (4.30-5.90) m/uL Hgb 17.2 (13.0-17.5) gm/dL Hct 48.6 (39.0-53.0) % MCV 87.2 (80.0-100.0) fL MCH 30.9 (25.0-35.0) pg MCHC 35.4 (31.0-37.0) g/dL RDW 14.4 (11.5-15.5) % Plt Count 249 (150-450) k/uL MPV 8.6 Neutrophils % 77 % Lymphocytes % 12 % Monocytes % 9 % Eosinophils % 0 % Basophils % 1 % Neutrophils # 4.7 (1.3-7.7) k/uL Lymphocytes # 0.7 L (1.0-4.8) k/uL Monocytes # 0.6 (0-1.0) k/uL Eosinophils # 0.0 (0-0.7) k/uL Basophils # 0.1 (0-0.2) k/uL Hyperchromasia Slight Poikilocytosis Slight Sodium 140 (137-145) mmol/L Potassium 4.3 (3.5-5.1) mmol/L Chloride 99 (98-107) mmol/L Carbon Dioxide 15 L (22-30) mmol/L Anion Gap 26 mmol/L BUN 7 L (9-20) mg/dL Creatinine 0.76 (0.66-1.25) mg/dL Est GFR (CKD-EPI)AfAm >90 (>60 ml/min/1.73 sqM) Est GFR (CKD-EPI)NonAf >90 (>60 ml/min/1.73 sqM) Glucose 165 H (74-99) mg/dL Calcium 9.3 (8.4-10.2) mg/dL Total Bilirubin 1.7 H (0.2-1.3) mg/dL AST 45 (17-59) U/L ALT 42 (4-49) U/L Alkaline Phosphatase 100 (38-126) U/L Troponin I <0.012 (0.000-0.034) ng/mL Total Protein 8.3 H (6.3-8.2) g/dL Albumin 5.1 H (3.5-5.0) g/dL Urine Opiates Screen (NotDetected) Ur Oxycodone Screen (NotDetected) Urine Methadone Screen (NotDetected) Ur Propoxyphene Screen (NotDetected) Ur Barbiturates Screen (NotDetected) U Tricyclic Antidepress (NotDetected) Ur Phencyclidine Scrn (NotDetected) Ur Amphetamines Screen (NotDetected) U Methamphetamines Scrn (NotDetected) U Benzodiazepines Scrn (NotDetected) Urine Cocaine Screen (NotDetected) U Marijuana (THC) Screen (NotDetected) Serum Alcohol 31 mg/dL 10/22/22 Range/Units 00:00 WBC (3.8-10.6) k/uL RBC (4.30-5.90) m/uL Hgb (13.0-17.5) gm/dL Hct (39.0-53.0) % MCV (80.0-100.0) fL MCH (25.0-35.0) pg MCHC (31.0-37.0) g/dL RDW (11.5-15.5) % Plt Count (150-450) k/uL MPV Neutrophils % % Lymphocytes % % Monocytes % % Eosinophils % % Basophils % % Neutrophils # (1.3-7.7) k/uL Lymphocytes # (1.0-4.8) k/uL Monocytes # (0-1.0) k/uL Eosinophils # (0-0.7) k/uL Basophils # (0-0.2) k/uL Hyperchromasia Poikilocytosis Sodium (137-145) mmol/L Potassium (3.5-5.1) mmol/L Chloride (98-107) mmol/L Carbon Dioxide (22-30) mmol/L Anion Gap mmol/L BUN (9-20) mg/dL Creatinine (0.66-1.25) mg/dL Est GFR (CKD-EPI)AfAm (>60 ml/min/1.73 sqM) Est GFR (CKD-EPI)NonAf (>60 ml/min/1.73 sqM) Glucose (74-99) mg/dL Calcium (8.4-10.2) mg/dL Total Bilirubin (0.2-1.3) mg/dL AST (17-59) U/L ALT (4-49) U/L Alkaline Phosphatase (38-126) U/L Troponin I (0.000-0.034) ng/mL Total Protein (6.3-8.2) g/dL Albumin (3.5-5.0) g/dL Urine Opiates Screen Not Detected (NotDetected) Ur Oxycodone Screen Not Detected (NotDetected) Urine Methadone Screen Not Detected (NotDetected) Ur Propoxyphene Screen Not Detected (NotDetected) Ur Barbiturates Screen Not Detected (NotDetected) U Tricyclic Antidepress Not Detected (NotDetected) Ur Phencyclidine Scrn Not Detected (NotDetected) Ur Amphetamines Screen Not Detected (NotDetected) U Methamphetamines Scrn Not Detected (NotDetected) U Benzodiazepines Scrn Detected H (NotDetected) Urine Cocaine Screen Not Detected (NotDetected) U Marijuana (THC) Screen Not Detected (NotDetected) Serum Alcohol mg/dL Disposition Clinical Impression: Alcohol withdrawal Disposition: HOME SELF-CARE Condition: Stable Instructions (If sedation given, give patient instructions): Alcohol Withdrawal (ED) Additional Instructions: Please return to the nearest emergency department if symptoms worsen or persist Is patient prescribed a controlled substance at d/c from ED?: No Referrals: None,Stated [Primary Care Provider] - 1-2 days Time of Disposition: 23:45
[2022-10-21 20:40] LABS: Basophils # (A) 0.1 k/uL (0-0.2); Basophils % (A) 1 %; Eosinophils % (A) 0 %; HCT 48.6 % (39.0-53.0); HGB 17.2 gm/dL (13.0-17.5); Hyperchromasia Slight; Lymphocytes # (A) 0.7 k/uL (1.0-4.8); Lymphocytes % (A) 12 %; MCH 30.9 pg (25.0-35.0); MCHC 35.4 g/dL (31.0-37.0); MCV 87.2 fL (80.0-100.0); Mean Platelet Volume 8.6; Monocytes # (A) 0.6 k/uL (0-1.0); Monocytes % (A) 9 %; Neutrophils # (A) 4.7 k/uL (1.3-7.7); Neutrophils % (A) 77 %; Platelet Count 249 k/uL (150-450); Poikilocytosis Slight; RBC 5.58 m/uL (4.30-5.90); RDW 14.4 % (11.5-15.5); WBC 6.1 k/uL (3.8-10.6)
[2022-10-21 21:05] LABS: ALT 42 U/L (4-49); AST 45 U/L (17-59); African American GFR (CKD) >90 (>60 ml/min/1.73 sqM); Albumin 5.1 g/dL (3.5-5.0); Alcohol 31 mg/dL; Alkaline Phosphatase 100 U/L (38-126); Anion Gap 26 mmol/L; Blood Urea Nitrogen 7 mg/dL (9-20); Calcium 9.3 mg/dL (8.4-10.2); Carbon Dioxide 15 mmol/L (22-30); Chloride 99 mmol/L (98-107); Glucose 165 mg/dL (74-99); Non-African American GFR(CKD) >90 (>60 ml/min/1.73 sqM); Potassium 4.3 mmol/L (3.5-5.1); Sodium 140 mmol/L (137-145); Total Bilirubin 1.7 mg/dL (0.2-1.3); Total Protein 8.3 g/dL (6.3-8.2)
[2022-10-21] MEDS ORDERED: METOCLOPRAMIDE 5 MG/ML 2 ML VIAL IVP STA (22:46)
[2022-10-22 00:36] VITALS: BP 155/78; PULSE 92; RESP 16
[2022-10-22 00:59] LABS: Amphetamine Screen,Urine Not Detected (NotDetected); Barbiturate Screen,Urine Not Detected (NotDetected); Benzodiazepines Screen,Urine Detected (NotDetected); Cocaine Screen,Urine Not Detected (NotDetected); Methadone Screen, Urine Not Detected (NotDetected); Opiate Screen,Urine Not Detected (NotDetected); Oxycodone Screen, Urine Not Detected (NotDetected); Phencyclidine Screen,Urine Not Detected (NotDetected); Tricyclic Antidepressant,Urine Not Detected (NotDetected); Urn Cannabinoid Scrn Not Detected (NotDetected)
== END 2022-10-22 00:15 | disposition home or self-care (01) ==
LOC: EC 17:54
DX: F10.239 Alcohol dependence with withdrawal, unspecified (principal); E11.40 Type 2 diabetes mellitus with diabetic neuropathy, unspecified; I10 Essential (primary) hypertension; Z79.84 Long term (current) use of oral hypoglycemic drugs; Z79.899 Other long term (current) drug therapy; Z86.16 Personal history of COVID-19; Y90.1 Blood alcohol level of 20-39 mg/100 ml
CPT/HCPCS: 36415; 93005; 80053; 84484; 85025; 80306; 80320; 99284; 96374; 96375 ×2; 96376; 96361; J2060; J2765; J2405

== ENCOUNTER 2022-12-08 16:59 | Emergency (ER) | payer BC, OTHER ==
[2022-12-08 17:24] VITALS: RESP 18
[2022-12-08] MEDS ORDERED: LORazepam 2 MG/ML INJ IV PRN (17:39)
[2022-12-08] MEDS ORDERED: SODIUM CHLORIDE 0.9% 1,000 ML IV ONE (17:39)
[2022-12-08] MEDS ORDERED: ONDANSETRON 4 MG/2 ML VIAL IVP STA (17:40)
[2022-12-08] MEDS ORDERED: LORazepam 2 MG/ML INJ IV STA ×2 (17:44→18:37)
[2022-12-08 17:48] LABS: Basophils % (A) 1 %; Eosinophils % (A) 0 %; HCT 53.8 % (39.0-53.0); Lymphocytes # (A) 1.3 k/uL (1.0-4.8); Lymphocytes % (A) 19 %; MCHC 35.6 g/dL (31.0-37.0); MCV 89.9 fL (80.0-100.0); Monocytes # (A) 0.3 k/uL (0-1.0); Monocytes % (A) 4 %; Neutrophils # (A) 5.2 k/uL (1.3-7.7); Neutrophils % (A) 75 %; Platelet Count 285 k/uL (150-450); RBC 5.98 m/uL (4.30-5.90); RDW 13.3 % (11.5-15.5); WBC 6.9 k/uL (3.8-10.6)
[2022-12-08 18:00] LABS: ALT 73 U/L (4-49); AST 93 U/L (17-59); African American GFR (CKD) >90 (>60 ml/min/1.73 sqM); Albumin 5.4 g/dL (3.5-5.0); Alkaline Phosphatase 127 U/L (38-126); Anion Gap 30 mmol/L; Blood Urea Nitrogen 7 mg/dL (9-20); Calcium 9.1 mg/dL (8.4-10.2); Carbon Dioxide 11 mmol/L (22-30); Chloride 93 mmol/L (98-107); Glucose 246 mg/dL (74-99); Non-African American GFR(CKD) >90 (>60 ml/min/1.73 sqM); Potassium 4.1 mmol/L (3.5-5.1); Sodium 134 mmol/L (137-145); Total Bilirubin 1.5 mg/dL (0.2-1.3); Total Protein 9.1 g/dL (6.3-8.2)
[2022-12-08 18:01] LABS: HGB 19.1 gm/dL (13.0-17.5)
--- NOTE | 2022-12-08 18:06 | ED ---
General Adult HPI <Jorge Luis Jamison - Last Filed: 12/08/22 18:16> - General Source: patient Mode of arrival: ambulatory <Tomas Buchanan - Last Filed: 12/08/22 19:26> - General Chief complaint: Nausea/Vomiting/Diarrhea Stated complaint: alcohol withdrawls Time Seen by Provider: 12/08/22 17:30 - History of Present Illness Initial comments: 37-year-old male presented to the ED with a chief complaint of alcohol withdrawal. Patient states that he typically drinks a fifth and a half of vodka a day. Patient states his last drink was approximately 8 hours ago. Denies history of DTs. Patient does admit to nausea, vomiting and tremulousness in his hands. Emesis nonbloody nonbilious. Denies headache. Denies paresthesias. Denies auditory or visual hallucinations. Denies suicidal or homicidal ideation. Denies chest pain or shortness of breath. No other complaints. (Tomas Buchanan) - Related Data Home Medications Medication Instructions Recorded Confirmed Latanoprost/Pf [Latanoprost 0.005% 1 drop BOTH EYES HS 06/10/19 12/08/22 Eye Drop] amLODIPine [Norvasc] 10 mg PO DAILY 08/15/20 12/08/22 lisinopriL [Zestril] 20 mg PO DAILY 09/28/21 12/08/22 Sildenafil Citrate [Viagra] 50 mg PO Q72H PRN 12/08/22 12/08/22 metFORMIN HCL [Glucophage] 850 mg PO BID 12/08/22 12/08/22 Allergies Allergy/AdvReac Type Severity Reaction Status Date / Time No Known Allergies Allergy Verified 12/08/22 17:32 Review of Systems ROS Other: All systems not noted in ROS Statement are negative. <Jorge Luis Jamison - Last Filed: 12/08/22 18:16> ROS Other: All systems not noted in ROS Statement are negative. <Tomas Buchanan - Last Filed: 12/08/22 19:26> ROS Statement: Those systems with pertinent positive or pertinent negative responses have been documented in the HPI. Past Medical History Past Medical History: Diabetes Mellitus, Eye Disorder, Hypertension Additional Past Medical History / Comment(s): NIDDM type II, neuropathy bilateral feet, ETOH abuse, Hx of ETOH withdrawal, bilateral glaucoma, covid 09/2020 and once more. History of Any Multi-Drug Resistant Organisms: None Reported Past Surgical History: Ear Surgery Additional Past Surgical History / Comment(s): Bilateral myringotomy/tubes, Past Anesthesia/Blood Transfusion Reactions: No Reported Reaction Past Psychological History: No Psychological Hx Reported Smoking Status: Never smoker Past Alcohol Use History: Abuse, Daily, Heavy Past Drug Use History: None Reported - Past Family History Father Family Medical History: Diabetes Mellitus Mother Family Medical History: Vascular Disorder Additional Family Medical History / Comment(s): Mother of a brain aneurysm. <Tomas Buchanan - Last Filed: 12/08/22 19:26> General Exam Limitations: no limitations General appearance: alert, in no apparent distress Head exam: Present: atraumatic Eye exam: Present: PERRL, other (Dilated approximately 4 mm. Sclera nonicteric) ENT exam: Present: mucous membranes moist Respiratory exam: Present: normal lung sounds bilaterally Cardiovascular Exam: Present: regular rate, normal rhythm GI/Abdominal exam: Present: soft (No tenderness palpation. No rebound guarding or rigidity.) Neurological exam: Present: alert, oriented X3, other (Serial sevens intact.) Psychiatric exam: Present: normal affect, normal mood Skin exam: Present: warm, dry <Tomas Buchanan - Last Filed: 12/08/22 19:26> Course Vital Signs 12/08/22 12/08/22 12/08/22 17:09 17:18 18:34 Temperature 98 F 98.6 F 97.8 F Pulse Rate 139 H 130 H 94 Respiratory 19 18 18 Rate Blood Pressure 147/82 137/79 O2 Sat by Pulse 95 100 Oximetry Medical Decision Making - Lab Data Result diagrams: 12/08/22 17:45 <Jorge Luis Jamison - Last Filed: 12/08/22 18:16> - Lab Data Result diagrams: 12/08/22 17:45 12/08/22 17:45 <Tomas Buchanan - Last Filed: 12/08/22 19:26> - Medical Decision Making Was pt. sent in by a medical professional or institution (, PA, BUILDING AND CONSTRUCTION MANAGER, urgent care, hospital, or fdc...) When possible be specific @ -No Did you speak to anyone other than the patient for history (EMS, parent, family, police, friend...)? What history was obtained from this source @ -No Did you review nursing and triage notes (agree or disagree)? Why? @ -I reviewed and agree with nursing and triage notes Were old charts reviewed (outside hosp., previous admission, EMS record, old EKG, old radiological studies, urgent care reports/EKG's, fdc records)? Report findings @ -Old charts reviewed showing history of alcoholism and multiple visits to the ED for the same complaint. Differential Diagnosis (chest pain, altered mental status, abdominal pain women, abdominal pain men, vaginal bleeding, weakness, fever, dyspnea, syncope, headache, dizziness, GI bleed, back pain, seizure, CVA, palpatations, mental health, musculoskeletal)? @ -Acute alcohol intoxication, withdrawal, delirium tremens, other drug intoxication. This is not meant to be an all-inclusive list. EKG interpreted by me (3pts min.). @ -As above X-rays interpreted by me (1pt min.). @ -None done CT interpreted by me (1pt min.). @ -None done U/S interpreted by me (1pt. min.). @ -None done What testing was considered but not performed or refused? (CT, X-rays, U/S, labs)? Why? @ -None What meds were considered but not given or refused? Why? @ -None Did you discuss the management of the patient with other professionals (professionals i.e. , PA, BUILDING AND CONSTRUCTION MANAGER, lab, RT, psych nurse, home health care social worker, wort extractor, teacher, bomb squad officer, case operator)? Give summary @ -No Was smoking cessation discussed for >3mins.? @ -No Was critical care preformed (if so, how long)? @ -No Were there social determinants of health that impacted care today? How? (Homelessness, low income, unemployed, alcoholism, drug addiction, transp ortation, low edu. Level, literacy, decrease access to med. care, skilled nursing, rehab)? @ -Alcohol addiction/abuse Was there de-escalation of care discussed even if they declined (Discuss DNR or withdrawal of care, Hospice)? DNR status @ -No What co-morbidities impacted this encounter? (DM, HTN, Smoking, COPD, CAD, Cancer, CVA, ARF, Chemo, Hep., AIDS, mental health diagnosis, sleep apnea, morbid obesity)? @ -None Was patient admitted / discharged? Hospital course, mention meds given and [place], prescriptions, significant lab abnormalities, going to OR and other pertinent info. @ -Discharge. Patient received a liter of IV fluids, Zofran, 2 mg of Ativan. After receiving medications patient reports all symptoms improved. Laboratory studies significant for an alcohol of 401 however otherwise unremarkable. Patient will be discharged home as he is clinically sober with a automotive fleet supervisor. Discussed plan of care with patient discussed return precautions patient verbalized agreement. Undiagnosed new problem with uncertain prognosis? @ -No Drug Therapy requiring intensive monitoring for toxicity (Heparin, Nitro, Insulin, Cardizem)? @ -No Were any procedures done? @ -No Diagnosis/symptom? @ -Alcohol intoxication/withdrawal Acute, or Chronic, or Acute on Chronic? @ - Acute on Chronic Uncomplicated (without systemic symptoms) or Complicated (systemic symptoms)? @ -Uncomplicated Side effects of treatment? @ -No Exacerbation, Progression, or Severe Exacerbation? @ -No Poses a threat to life or bodily function? How? (Chest pain, [place], [place], pneumonia, PE, COPD, DKA, ARF, appy, cholecystitis, CVA, Diverticulitis, Homicidal, Suicidal, threat to staff... and all critical care pts) @ -Yes, rule out DTs. (Tomas Buchanan) - Lab Data Lab Results 12/08/22 12/08/22 Range/Units 17:45 17:45 WBC 6.9 (3.8-10.6) k/uL RBC 5.98 H (4.30-5.90) m/uL Hgb 19.1 H* (13.0-17.5) gm/dL Hct 53.8 H (39.0-53.0) % MCV 89.9 (80.0-100.0) fL MCH 32.0 (25.0-35.0) pg MCHC 35.6 (31.0-37.0) g/dL RDW 13.3 (11.5-15.5) % Plt Count 285 (150-450) k/uL MPV 8.0 Neutrophils % 75 % Lymphocytes % 19 % Monocytes % 4 % Eosinophils % 0 % Basophils % 1 % Neutrophils # 5.2 (1.3-7.7) k/uL Lymphocytes # 1.3 (1.0-4.8) k/uL Monocytes # 0.3 (0-1.0) k/uL Eosinophils # 0.0 (0-0.7) k/uL Basophils # 0.0 (0-0.2) k/uL Sodium 134 L (137-145) mmol/L Potassium 4.1 (3.5-5.1) mmol/L Chloride 93 L (98-107) mmol/L Carbon Dioxide 11 L (22-30) mmol/L Anion Gap 30 mmol/L BUN 7 L (9-20) mg/dL Creatinine 0.70 (0.66-1.25) mg/dL Est GFR (CKD-EPI)AfAm >90 (>60 ml/min/1.73 sqM) Est GFR (CKD-EPI)NonAf >90 (>60 ml/min/1.73 sqM) Glucose 246 H (74-99) mg/dL Calcium 9.1 (8.4-10.2) mg/dL Total Bilirubin 1.5 H (0.2-1.3) mg/dL AST 93 H (17-59) U/L ALT 73 H (4-49) U/L Alkaline Phosphatase 127 H (38-126) U/L Total Protein 9.1 H (6.3-8.2) g/dL Albumin 5.4 H (3.5-5.0) g/dL Serum Alcohol 408 H* mg/dL - EKG Data EKG Comments: EKG shows sinus tach at [address] and T-wave changes. VT 151, QRS 93, QT/QTc 335/411. (Tomas Buchanan) Disposition <Jorge Luis Jamison - Last Filed: 12/08/22 18:16> Is patient prescribed a controlled substance at d/c from ED?: No Time of Disposition: 19:26 <Tomas Buchanan - Last Filed: 12/08/22 19:26> Clinical Impression: Alcohol intoxication Disposition: HOME SELF-CARE Condition: Good Instructions (If sedation given, give patient instructions): Alcohol Withdrawal (ED) Referrals: None,Stated [Primary Care Provider] - 1-2 days Forms: AA Meetings [address] [facility] - [facility], AA Meetings [place], In Substance Abuse Facilities, Outpatient Counseling
[2022-12-08 18:23] LABS: Alcohol 408 mg/dL
[2022-12-08 18:36] VITALS: TEMP 97.8
[2022-12-08 19:38] VITALS: BP 143/81; PULSE 112
== END 2022-12-08 19:59 | disposition home or self-care (01) ==
LOC: EC 16:59
DX: F10.129 Alcohol abuse with intoxication, unspecified (principal); E11.40 Type 2 diabetes mellitus with diabetic neuropathy, unspecified; I10 Essential (primary) hypertension; Z79.84 Long term (current) use of oral hypoglycemic drugs; Z79.899 Other long term (current) drug therapy; Z86.16 Personal history of COVID-19; Y90.8 Blood alcohol level of 240 mg/100 ml or more
CPT/HCPCS: 93005; 80053; 85025; 80320; 99284; 96374; 96375; 96376; 96361 ×2; J2060; J2405; 36415

== ENCOUNTER 2023-02-03 06:08 | Emergency (ER) | payer BC, OTHER ==
[2023-02-03] MEDS ORDERED: LORazepam 2 MG/ML INJ IV PRN ×4 (06:26)
[2023-02-03] MEDS ORDERED: THIAMINE 100 MG/ML 2 ML VIAL IM STA (06:26)
[2023-02-03] MEDS ORDERED: ONDANSETRON 4 MG/2 ML VIAL IVP STA ×2 (06:27→08:19)
[2023-02-03] MEDS ORDERED: SODIUM CHLORIDE 0.9% 2,000 ML IV STA (06:27)
[2023-02-03 06:44] LABS: Basophils % (A) 0 %; Eosinophils % (A) 1 %; HGB 17.7 gm/dL (13.0-17.5); Lymphocytes # (A) 3.1 k/uL (1.0-4.8); Lymphocytes % (A) 44 %; MCH 31.3 pg (25.0-35.0); MCHC 35.3 g/dL (31.0-37.0); MCV 88.6 fL (80.0-100.0); Mean Platelet Volume 8.1; Monocytes # (A) 0.3 k/uL (0-1.0); Monocytes % (A) 5 %; Neutrophils # (A) 3.5 k/uL (1.3-7.7); Neutrophils % (A) 49 %; Platelet Count 273 k/uL (150-450); RBC 5.65 m/uL (4.30-5.90); RDW 14.1 % (11.5-15.5); WBC 7.1 k/uL (3.8-10.6)
--- NOTE | 2023-02-03 06:45 | ED ---
Alcohol HPI - General Chief Complaint: Alcohol Stated Complaint: Alcohol withdraw Time Seen by Provider: 02/03/23 06:22 Source: patient, RN notes reviewed Mode of arrival: ambulatory Limitations: no limitations - History of Present Illness Initial Comments: This is a 37-year-old male who presents to the emergency department for alcohol withdrawals. His last drink was approximately 7 hours ago and states that he consumed 1.5 fifths of whiskey. He typically consumes 1.5 fifths of alcohol a day. Denies any history of withdrawal seizures or DTs. States that he typically experiences nausea and vomiting, which is what he is experiencing this time. He currently has no plans to get sober. Denies any fevers, chills, sore throat, cough, dyspnea, chest pain, palpitations, abdominal pain, diarrhea, back pain, or headaches. MD Complaint: alcohol withdrawal Time Since Last Drink: 7 -: hour(s) Previous Visits for Alcohol Intoxication?: Yes Recent Trauma: No - Related Data Home Medications Medication Instructions Recorded Confirmed Latanoprost/Pf [Latanoprost 0.005% 1 drop BOTH EYES HS 06/10/19 02/03/23 Eye Drop] amLODIPine [Norvasc] 10 mg PO DAILY 08/15/20 02/03/23 lisinopriL [Zestril] 20 mg PO DAILY 09/28/21 02/03/23 Sildenafil Citrate [Viagra] 50 mg PO Q72H PRN 12/08/22 02/03/23 metFORMIN HCL [Glucophage] 850 mg PO BID 12/08/22 02/03/23 Allergies Allergy/AdvReac Type Severity Reaction Status Date / Time No Known Allergies Allergy Verified 02/03/23 07:49 Review of Systems ROS Statement: Those systems with pertinent positive or pertinent negative responses have been documented in the HPI. ROS Other: All systems not noted in ROS Statement are negative. Past Medical History Past Medical History: Diabetes Mellitus, Eye Disorder, Hypertension Additional Past Medical History / Comment(s): NIDDM type II, neuropathy bilateral feet, ETOH abuse, Hx of ETOH withdrawal, bilateral glaucoma, covid 09/2020 and once more. History of Any Multi-Drug Resistant Organisms: None Reported Past Surgical History: Ear Surgery Additional Past Surgical History / Comment(s): Bilateral myringotomy/tubes, Past Anesthesia/Blood Transfusion Reactions: No Reported Reaction Past Psychological History: No Psychological Hx Reported Smoking Status: Never smoker Past Alcohol Use History: Abuse, Daily, Heavy Past Drug Use History: None Reported - Past Family History Father Family Medical History: Diabetes Mellitus Mother Family Medical History: Vascular Disorder Additional Family Medical History / Comment(s): Mother of a brain aneurysm. General Exam Limitations: no limitations General appearance: alert, in no apparent distress Head exam: Present: atraumatic, normocephalic, normal inspection Respiratory exam: Present: normal lung sounds bilaterally. Absent: respiratory distress, wheezes, rales, rhonchi, stridor Cardiovascular Exam: Present: regular rate, normal rhythm, normal heart sounds. Absent: systolic murmur, diastolic murmur, rubs, gallop, clicks GI/Abdominal exam: Present: soft, normal bowel sounds. Absent: distended, tenderness, guarding, rebound, rigid Neurological exam: Present: alert, oriented X3, CN II-XII intact Psychiatric exam: Present: normal affect, normal mood Skin exam: Present: warm, dry, intact, normal color. Absent: rash Course Vital Signs 02/03/23 02/03/23 02/03/23 06:19 07:39 09:00 Temperature 98.2 F 98.9 F Pulse Rate 134 H 117 H 110 H Respiratory 18 20 20 Rate Blood Pressure 103/71 124/85 90/60 O2 Sat by Pulse 94 L 98 98 Oximetry 02/03/23 10:21 Temperature Pulse Rate 106 H Respiratory 20 Rate Blood Pressure 110/60 O2 Sat by Pulse 98 Oximetry Medical Decision Making - Medical Decision Making This is a 37-year-old male who presents to the emergency department for nausea and vomiting related to alcohol withdrawals. Was pt. sent in by a medical professional or institution? @ -No Did you speak to anyone other than the patient for history? @ -No Did you review nursing and triage notes? @ -Yes, and I agree, it is accurate with regards to the patient's symptoms. Were old charts reviewed? @ -No Differential Diagnosis? @ -Differential Nausea and Vomiting: Gastroenteritis, cholecystitis, appendicitis, pancreatitis, migraine, benign positional vertigo, food borne illness, pyelonephritis, irritable bowel syndrome, influenza, Covid, GERD, incarcerated hernia, intestinal obstruction, this is not meant to be an all-inclusive list. EKG interpreted by me (3pts min.)? @ -Not obtained X-rays interpreted by me (1pt min.)? @ -Not obtained CT interpreted by me (1pt min.)? @ -Not obtained U/S interpreted by me (1pt. min.)? @ -Not obtained What testing was considered but not performed? (CT, X-rays, U/S, labs)? Why? @ -None What meds were considered but not given? Why? @ -None Did you discuss the management of the patient with other professionals? @ -No Did you reconcile home meds? @ -No Was smoking cessation discussed for >3mins.? @ -No Was critical care preformed (if so, how long)? @ -No Were there social determinants of health that impacted care today? How? (Homelessness, low income, unemployed, alcoholism, drug addiction, transportation, low edu. Level, literacy, decrease access to med. care, shelter, rehab)? @ -Alcoholism, leading to repetitive ER visits for alcohol withdrawals and increasing his risk for other health problems. Was there de-escalation of care discussed even if they declined? (Discuss DNR or withdrawal of care, Hospice)? @ -No What co-morbidities impacted this encounter? (DM, HTN, Smoking, COPD, CAD, Cancer, CVA, Hep., AIDS, mental health diagnosis, sleep apnea, morbid obesity)? @ -Alcohol abuse, DM Was patient admitted / discharged? @ -Discharged. Lab work obtained revealing an elevated alcohol level of 367, consistent with prior values. Lab work was otherwise nonactionable. Patient given IV fluids, Zofran, thiamine, and Ativan. He did feel significantly improved afterwards. He was eating ice chips without any difficulty. Patient was clinically sober and not exhibiting any signs of withdrawals. On reevaluation he was sleeping comfortably. Given that his symptoms have improved, he is clinically sober, and not having any signs withdrawals, he was discharged home in stable condition. Starter pack for Zofran provided. Patient educated on the need to reduce his alcohol consumption. Undiagnosed new problem with uncertain prognosis? @ -None Drug Therapy requiring intensive monitoring for toxicity (Heparin, Nitro, Insulin, Cardizem)? @ -None Were any procedures done? @ -None Diagnosis/symptom? @ -Alcohol intoxication, alcohol withdrawals Acute, or Chronic, or Acute on Chronic? @ -Acute Uncomplicated (without systemic symptoms) or Complicated (systemic symptoms)? @ -Uncomplicated Side effects of treatment? @ -None Exacerbation, Progression, or Severe Exacerbation] @ -Not applicable Poses a threat to life or bodily function? @ -No Return precautions reviewed in depth, the patient is instructed to return to the emergency department with any new, worsening, or concerning symptoms. Patient verbalized understanding. This case was discussed in detail with the attending ED physician, Dr. Manznao. Presentation, findings, and treatment plan discussed in detail as well. - Lab Data Result diagrams: 02/03/23 06:33 02/03/23 06:33 Lab Results 02/03/23 02/03/23 Range/Units 06:33 06:33 WBC 7.1 (3.8-10.6) k/uL RBC 5.65 (4.30-5.90) m/uL Hgb 17.7 H (13.0-17.5) gm/dL Hct 50.0 (39.0-53.0) % MCV 88.6 (80.0-100.0) fL MCH 31.3 (25.0-35.0) pg MCHC 35.3 (31.0-37.0) g/dL RDW 14.1 (11.5-15.5) % Plt Count 273 (150-450) k/uL MPV 8.1 Neutrophils % 49 % Lymphocytes % 44 % Monocytes % 5 % Eosinophils % 1 % Basophils % 0 % Neutrophils # 3.5 (1.3-7.7) k/uL Lymphocytes # 3.1 (1.0-4.8) k/uL Monocytes # 0.3 (0-1.0) k/uL Eosinophils # 0.0 (0-0.7) k/uL Basophils # 0.0 (0-0.2) k/uL Sodium 137 (137-145) mmol/L Potassium 3.7 (3.5-5.1) mmol/L Chloride 97 L (98-107) mmol/L Carbon Dioxide 16 L (22-30) mmol/L Anion Gap 24 mmol/L BUN 5 L (9-20) mg/dL Creatinine 0.72 (0.66-1.25) mg/dL Est GFR (CKD-EPI)AfAm >90 (>60 ml/min/1.73 sqM) Est GFR (CKD-EPI)NonAf >90 (>60 ml/min/1.73 sqM) Glucose 360 H (74-99) mg/dL Calcium 8.7 (8.4-10.2) mg/dL Phosphorus 4.2 (2.5-4.5) mg/dL Magnesium 1.9 (1.6-2.3) mg/dL Total Bilirubin 1.2 (0.2-1.3) mg/dL AST 55 (17-59) U/L ALT 40 (4-49) U/L Alkaline Phosphatase 125 (38-126) U/L Total Protein 7.8 (6.3-8.2) g/dL Albumin 4.6 (3.5-5.0) g/dL Serum Alcohol 367 H* mg/dL Disposition Clinical Impression: Alcohol intoxication Disposition: HOME SELF-CARE Instructions (If sedation given, give patient instructions): Alcohol Intoxication (ED), Alcohol Withdrawal (ED) Additional Instructions: Return to the emergency department with any new, worsening, or concerning symptoms. Reduce your alcohol consumption. Make sure you remain well-hydrated. Follow up with your primary care provider in 1-2 days. Is patient prescribed a controlled substance at d/c from ED?: No Referrals: None,Stated [Primary Care Provider] - 1-2 days
[2023-02-03] MEDS ORDERED: LORazepam 2 MG/ML INJ IV STA (06:47)
[2023-02-03 07:09] LABS: ALT 40 U/L (4-49); AST 55 U/L (17-59); African American GFR (CKD) >90 (>60 ml/min/1.73 sqM); Albumin 4.6 g/dL (3.5-5.0); Alkaline Phosphatase 125 U/L (38-126); Blood Urea Nitrogen 5 mg/dL (9-20); Calcium 8.7 mg/dL (8.4-10.2); Carbon Dioxide 16 mmol/L (22-30); Glucose 360 mg/dL (74-99); Magnesium 1.9 mg/dL (1.6-2.3); Non-African American GFR(CKD) >90 (>60 ml/min/1.73 sqM); Phosphorus 4.2 mg/dL (2.5-4.5); Total Bilirubin 1.2 mg/dL (0.2-1.3); Total Protein 7.8 g/dL (6.3-8.2)
[2023-02-03 07:21] LABS: Alcohol 367 mg/dL
[2023-02-03 07:34] LABS: Anion Gap 24 mmol/L; Chloride 97 mmol/L (98-107); Potassium 3.7 mmol/L (3.5-5.1); Sodium 137 mmol/L (137-145)
[2023-02-03 07:40] VITALS: RESP 20; TEMP 98.9
[2023-02-03] MEDS ORDERED: ONDANSETRON 4 MG ODT STARTER PACK 2 TAB BTL PO STA (09:31)
[2023-02-03 10:22] VITALS: BP 110/60; PULSE 106
[2023-02-04] MEDS ORDERED: THIAMINE 100 MG TAB PO SCH (09:00)
== END 2023-02-03 10:21 | disposition home or self-care (01) ==
LOC: EC 06:08
DX: F10.229 Alcohol dependence with intoxication, unspecified (principal); F10.239 Alcohol dependence with withdrawal, unspecified; E11.40 Type 2 diabetes mellitus with diabetic neuropathy, unspecified; I10 Essential (primary) hypertension; Z79.84 Long term (current) use of oral hypoglycemic drugs; Z79.899 Other long term (current) drug therapy; Y90.8 Blood alcohol level of 240 mg/100 ml or more; Z86.16 Personal history of COVID-19
CPT/HCPCS: 99285; 96374; 96375; 96376; 96361 ×2; 96372; 36415; 80053; 83735; 84100; 85025; 80320; J2060; J3411; J2405

== ENCOUNTER 2023-03-18 23:17 | Emergency (ER) | payer BC, OTHER ==
[2023-03-18 23:27] VITALS: TEMP 98.4
[2023-03-18] MEDS ORDERED: SODIUM CHLORIDE 0.9% 1,000 ML IV STA (23:57)
[2023-03-18] MEDS ORDERED: LORazepam 2 MG/ML INJ IV STA (23:58)
--- NOTE | 2023-03-19 00:03 | ED ---
Alcohol HPI - General Chief Complaint: Alcohol Stated Complaint: Alcohol withdraw Time Seen by Provider: 03/18/23 23:34 Source: patient Mode of arrival: ambulatory Limitations: no limitations - History of Present Illness Initial Comments: Emmanuel is a 87-year-old gentleman with a history of alcohol abuse who presents the ER today concerned that he is withdrawing. Patient reports that for the past few months he's been drinking about a fifth and a half a day of liquor. Last drink was approximately 8 hours ago. Patient does have a history of significant alcohol withdrawal with DTs and hallucinations. Never had a seizure from alcohol withdrawal. - Related Data Home Medications Medication Instructions Recorded Confirmed Latanoprost/Pf [Latanoprost 0.005% 1 drop BOTH EYES HS 06/10/19 02/03/23 Eye Drop] amLODIPine [Norvasc] 10 mg PO DAILY 08/15/20 02/03/23 lisinopriL [Zestril] 20 mg PO DAILY 09/28/21 02/03/23 Sildenafil Citrate [Viagra] 50 mg PO Q72H PRN 12/08/22 02/03/23 metFORMIN HCL [Glucophage] 850 mg PO BID 12/08/22 02/03/23 Previous Rx's Medication Instructions Recorded chlordiazePOXIDE HCl [Librium] 50 mg PO QID #34 capsule 03/19/23 Allergies Allergy/AdvReac Type Severity Reaction Status Date / Time No Known Allergies Allergy Verified 03/18/23 23:25 Review of Systems ROS Statement: Those systems with pertinent positive or pertinent negative responses have been documented in the HPI. ROS Other: All systems not noted in ROS Statement are negative. Past Medical History Past Medical History: Diabetes Mellitus, Eye Disorder, Hypertension Additional Past Medical History / Comment(s): NIDDM type II, neuropathy bilateral feet, ETOH abuse, Hx of ETOH withdrawal, bilateral glaucoma, covid 09/2020 and once more. History of Any Multi-Drug Resistant Organisms: None Reported Past Surgical History: Ear Surgery Additional Past Surgical History / Comment(s): Bilateral myringotomy/tubes, Past Anesthesia/Blood Transfusion Reactions: No Reported Reaction Past Psychological History: No Psychological Hx Reported Smoking Status: Never smoker Past Alcohol Use History: Abuse, Daily, Heavy Past Drug Use History: None Reported - Past Family History Father Family Medical History: Diabetes Mellitus Mother Family Medical History: Vascular Disorder Additional Family Medical History / Comment(s): Mother of a brain aneurysm. General Exam Limitations: no limitations Course Vital Signs 03/18/23 03/19/23 03/19/23 00:00 01:00 Temperature 98.4 F Pulse Rate 133 H 110 H 110 H Respiratory 20 16 18 Rate Blood Pressure 178/105 175/124 166/101 O2 Sat by Pulse 96 98 97 Oximetry 03/19/23 03/19/23 02:00 03:00 Temperature Pulse Rate 95 100 Respiratory 16 14 Rate Blood Pressure 134/76 123/92 O2 Sat by Pulse 96 94 L Oximetry Medical Decision Making - Medical Decision Making Was pt. sent in by a medical professional or institution (, PA, MEDICAID BILLING SPECIALIST, urgent care, hospital, or [facility]...) When possible be specific @ -No Did you speak to anyone other than the patient for history (EMS, parent, family, police, friend...)? What history was obtained from this source @ -No Did you review nursing and triage notes (agree or disagree)? Why? @ -I reviewed and agree with nursing and triage notes Were old charts reviewed (outside hosp., previous admission, EMS record, old EKG, old radiological studies, urgent care reports/EKG's, [facility] records)? Report findings @ -No old charts were reviewed Differential Diagnosis (chest pain, altered mental status, abdominal pain women, abdominal pain men, vaginal bleeding, weakness, fever, dyspnea, syncope, headache, dizziness, GI bleed, back pain, seizure, CVA, palpatations, mental health, musculoskeletal)? @ -not applicable EKG interpreted by me (3pts min.). @ -As above X-rays interpreted by me (1pt min.). @ -None done CT interpreted by me (1pt min.). @ -None done U/S interpreted by me (1pt. min.). @ -None done What testing was considered but not performed or refused? (CT, X-rays, U/S, labs)? Why? @ -None What meds were considered but not given or refused? Why? @ -None Did you discuss the management of the patient with other professionals (professionals i.e. , PA, MEDICAID BILLING SPECIALIST, lab, RT, psych nurse, social sciences professor, taxicab coordinator, teacher, chemistry technical officer, case coordinator)? Give summary @ -No Was smoking cessation discussed for >3mins.? @ -No Was critical care preformed (if so, how long)? @ -No Were there social determinants of health that impacted care today? How? (Homelessness, low income, unemployed, alcoholism, drug addiction, transportation, low edu. Level, literacy, decrease access to med. care, half-way, rehab)? @ Alcoholism Was there de-escalation of care discussed even if they declined (Discuss DNR or withdrawal of care, Hospice)? DNR status @ -No What co-morbidities impacted this encounter? (DM, HTN, Smoking, COPD, CAD, Cancer, CVA, ARF, Chemo, Hep., AIDS, mental health diagnosis, sleep apnea, morbid obesity)? @ -None Was patient admitted / discharged? Hospital course, mention meds given and route, prescriptions, significant lab abnormalities, going to OR and other pertinent info. @ -Discharge Patient was seen and evaluated patient reported he was in acute alcohol withdrawal. He was tachycardic and hypertensive. He was treated with Ativan. He received IV fluids. Upon reevaluation his tachycardia has improved significantly he reports feeling much better he's resting comfortably comfortable with plan for discharge home. He has taken Librium in the past for alcohol withdrawal and is comfortable with the plan for discharge with a tap ering dose of Librium. This was provided at discharge. Undiagnosed new problem with uncertain prognosis? @ -No Drug Therapy requiring intensive monitoring for toxicity (Heparin, Nitro, Insulin, Cardizem)? @ -No Were any procedures done? @ -No Diagnosis/symptom? @ -Alcohol withdrawal Acute, or Chronic, or Acute on Chronic? @ -default Uncomplicated (without systemic symptoms) or Complicated (systemic symptoms)? @ -default Side effects of treatment? @ -No Exacerbation, Progression, or Severe Exacerbation? @ -No Poses a threat to life or bodily function? How? (Chest pain, [place], [place], pneumonia, PE, COPD, DKA, ARF, appy, cholecystitis, CVA, Diverticulitis, Homicidal, Suicidal, threat to staff... and all critical care pts) @ -No - Lab Data Result diagrams: 03/19/23 00:03 03/19/23 00:03 Lab Results 03/19/23 03/19/23 Range/Units 00:03 00:03 WBC 8.1 (3.8-10.6) k/uL RBC 5.79 (4.30-5.90) m/uL Hgb 18.4 H (13.0-17.5) gm/dL Hct 51.8 (39.0-53.0) % MCV 89.6 (80.0-100.0) fL MCH 31.7 (25.0-35.0) pg MCHC 35.5 (31.0-37.0) g/dL RDW 13.8 (11.5-15.5) % Plt Count 324 (150-450) k/uL MPV 8.1 Neutrophils % 46 % Lymphocytes % 44 % Monocytes % 7 % Eosinophils % 0 % Basophils % 1 % Neutrophils # 3.8 (1.3-7.7) k/uL Lymphocytes # 3.6 (1.0-4.8) k/uL Monocytes # 0.5 (0-1.0) k/uL Eosinophils # 0.0 (0-0.7) k/uL Basophils # 0.1 (0-0.2) k/uL Sodium 144 (137-145) mmol/L Potassium 4.1 (3.5-5.1) mmol/L Chloride 103 (98-107) mmol/L Carbon Dioxide 18 L (22-30) mmol/L Anion Gap 23 mmol/L BUN 5 L (9-20) mg/dL Creatinine 0.66 (0.66-1.25) mg/dL Est GFR (CKD-EPI)AfAm >90 (>60 ml/min/1.73 sqM) Est GFR (CKD-EPI)NonAf >90 (>60 ml/min/1.73 sqM) Glucose 208 H (74-99) mg/dL Calcium 9.4 (8.4-10.2) mg/dL Magnesium 1.7 (1.6-2.3) mg/dL Total Bilirubin 1.1 (0.2-1.3) mg/dL AST 50 (17-59) U/L ALT 42 (4-49) U/L Alkaline Phosphatase 95 (38-126) U/L Total Protein 8.4 H (6.3-8.2) g/dL Albumin 5.0 (3.5-5.0) g/dL Lipase 133 (23-300) U/L - EKG Data -: EKG Interpreted by Me EKG Comments: EKG interpreted by me, EKG obtained due to tachycardia, EKG obtained at 2341 rate is 111 rhythm is sinus tach, normal intervals DE 144, QRS 90 QTc 385 no acute abscess elevations or depressions no evidence of acute ischemia or infarction. Disposition Clinical Impression: Alcohol withdrawal Disposition: HOME SELF-CARE Condition: Serious Instructions (If sedation given, give patient instructions): Alcohol Withdrawal (ED) Prescriptions: chlordiazePOXIDE HCl [Librium] 50 mg PO QID #34 capsule Is patient prescribed a controlled substance at d/c from ED?: No Referrals: None,Stated [Primary Care Provider] - 1-2 days
[2023-03-19 00:20] LABS: Basophils # (A) 0.1 k/uL (0-0.2); Basophils % (A) 1 %; Eosinophils % (A) 0 %; HCT 51.8 % (39.0-53.0); HGB 18.4 gm/dL (13.0-17.5); Lymphocytes # (A) 3.6 k/uL (1.0-4.8); Lymphocytes % (A) 44 %; MCH 31.7 pg (25.0-35.0); MCHC 35.5 g/dL (31.0-37.0); MCV 89.6 fL (80.0-100.0); Mean Platelet Volume 8.1; Monocytes # (A) 0.5 k/uL (0-1.0); Monocytes % (A) 7 %; Neutrophils # (A) 3.8 k/uL (1.3-7.7); Neutrophils % (A) 46 %; Platelet Count 324 k/uL (150-450); RBC 5.79 m/uL (4.30-5.90); RDW 13.8 % (11.5-15.5); WBC 8.1 k/uL (3.8-10.6)
[2023-03-19 00:23] LABS: ALT 42 U/L (4-49); African American GFR (CKD) >90 (>60 ml/min/1.73 sqM); Anion Gap 23 mmol/L; Blood Urea Nitrogen 5 mg/dL (9-20); Calcium 9.4 mg/dL (8.4-10.2); Carbon Dioxide 18 mmol/L (22-30); Chloride 103 mmol/L (98-107); Glucose 208 mg/dL (74-99); Lipase 133 U/L (23-300); Non-African American GFR(CKD) >90 (>60 ml/min/1.73 sqM); Sodium 144 mmol/L (137-145); Total Bilirubin 1.1 mg/dL (0.2-1.3); Total Protein 8.4 g/dL (6.3-8.2)
[2023-03-19 00:27] LABS: AST 50 U/L (17-59); Alkaline Phosphatase 95 U/L (38-126); Magnesium 1.7 mg/dL (1.6-2.3); Potassium 4.1 mmol/L (3.5-5.1)
[2023-03-19] MEDS ORDERED: PANTOPRAZOLE 40 MG/10 ML VIAL IVP STA (01:26)
[2023-03-19 03:12] VITALS: RESP 14
[2023-03-19] MEDS ORDERED: LORazepam 2 MG/ML INJ IV STA (03:54)
[2023-03-19] MEDS ORDERED: ONDANSETRON 4 MG/2 ML VIAL IVP STA (04:05)
[2023-03-19 04:28] VITALS: BP 114/73; PULSE 105
== END 2023-03-19 04:20 | disposition home or self-care (01) ==
LOC: EC 23:17
DX: F10.239 Alcohol dependence with withdrawal, unspecified (principal); R00.0 Tachycardia, unspecified; E11.40 Type 2 diabetes mellitus with diabetic neuropathy, unspecified; I10 Essential (primary) hypertension; Z79.84 Long term (current) use of oral hypoglycemic drugs; Z79.899 Other long term (current) drug therapy; Z86.16 Personal history of COVID-19
CPT/HCPCS: 82075; 36415; 80053; 83690; 83735; 85025; 99285; 96374; 96375 ×2; 96376; 96361; J2060; J2405; C9113